=== PATIENT | male | born 1965 | race Caucasian/White ===

== ENCOUNTER → 2020-01-05 | Outpatient (CLI) | payer OTHER ==
[~2020-01-05] MED LIST: ASPI-630 PO; BYSTOLIC20 MG PO; CLON1PAT6 TD; CLONAZEPAM1 MG PO; COLC0.6T42 PO; DAPA10TA PO; EMPA25TA PO; EZET10TA20 PO; FEBU80TA2 PO; HYDR-2869 PO; HYDR12.575 PO; IOHEXOL 180 MG/ML 10 ML VIAL. ONE; LIPITOR80 MG PO; LISI-378 PO; SEMA1PEN SQ; SILD20TA4 PO; ZOLP10TA PO; methylPREDNISolone ACETATE 40 MG/ML VIAL. ONE; methylPREDNISolone ACETATE 80 MG/ML VIAL. ONE; tylenol #3
--- NOTE | 2020-01-05 13:04 | PDOC1 ---
INITIAL PAIN CONSULT DATE OF SERVICE: DOS: DATE: 01/05/20 TIME: 12:57 CHIEF COMPLAINT: Chief Complaint: Low back and right lower extremity pain HISTORY OF PRESENT ILLNESS: 54-year-old male presents history of pain in the low back and right lower extremity for about 1 to 2 years. Patient reports no specific injury or accident that he is aware of but has significant pain in the low back and right lower extremity. Patient had lumbar laminectomy in 2016 in [place] which did very well for several years after the procedure but now the pain is returning similar to that what it was previously. Patient reports the pain is in the low back right lower extremity posterior gluteus posterior thigh lateral thigh anterior thigh groin on the right side into the medial knee on the right as well. Patient reports no loss of motor function describes the pain is shooting intermittent intensity and severity changes during the day with walking standing changing positions as a radiating pain in the low back and right leg burning sensation in the back and leg as well. Patient which is worse with walking standing changing positions better with sitting or laying down but does awaken him sleep release once or twice a night does not affect his bowel bladder control but does affect his ability to walk although he is not using any assistive devices such as canes or walkers to ambulate. Patient has been taking Tylenol 3 which has not been very helpful also tizanidine which has not decreased the pain as well. Rates his disability rating 0-10 10 me the worst is a 7 with family home responsibilities social activity occupation 8 with recreation and sexual behavior 5 with self-care and 6 with life support activities. Did have an MRI scan lumbar spine dated December 02, 2019 showing L3-4 right neuroforaminal broad-based disc protrusion with mild to moderate right neuroforaminal stenosis compromising the anterior inferior margin of the exiting right L3 nerve root. Patient reports no loss of motor function but significant fatigability the right lower extremity specially with ambulation. PAST MEDICAL HISTORY: PMH: Diabetes, hypertension, peripheral vascular disease, arthritis PREVIOUS SURGERIES: Past Surgical Hx: Lumbar laminectomy 2016, left carotid endarterectomy, cyst removed from the brain x2 CURRENT MEDICATIONS: Current Meds: See patients chart ALLERGIES; Allergies: Coded Allergies: No Known Drug Allergies (Unverified , 01/05/20) FAMILY HISTORY: Family Hx: Diabetes, arthritis, hypertension SOCIAL HISTORY: Social Hx: Patient drinks alcohol 1 or 2 drinks a week does not smoke not use any illegal illicit recreational drugs is single lives locally in [facility] and 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 Extraocular movements are intact and symmetrical. Oral cavity: Mucous membranes moist and pink. Dentition is intact. NECK: Shows anterior throat supple without palpable lymphadenopathy noted. Swallow reflex symmetrical. CHEST: Shows normal on inspection. Breath sounds are clear bilaterally, no rales rhonchi or wheezes. HEART: Shows S1, S2 clear. No murmurs auscultated. ABDOMEN: Soft, nontender, nondistended, obese. No palpable organomegaly is noted. No rebound or guarding demonstrated. BACK: Shows spine grossly in the midline. Normal-appearing cervical lordotic curvature. There is slightly increased thoracic kyphosis, some minor flattening of the lumbar lordotic curvature. Well-healed midline surgical scar is noted. Lumbar paraspinous muscles show symmetrical on inspection, on palpation shows some moderate tenderness diffusely throughout the upper, middle and lower distribution of the paraspinous muscles bilaterally and also into the lower thoracic paraspinous musculature, firm and tender, but without specific trigger points, without radiation of pain. The patient has good rotational motion of the lumbar spine, both laterally as well as extension and flexion without significant difficulty. No tenderness over the spinous processes, sacrum or sacroiliac regions. EXTREMITIES: Lower extremities show deep tendon reflexes 2+ in the patellar and tendo calcaneus tendons. Motor exam is 4 on a scale of 5 with right dorsiflexion, extension, quadriceps and hamstring flexion and 5/5 on the left. Peripheral pulses are 1+ posterior tibial. No peripheral edema is noted bilaterally. Lower extremities are warm and dry to touch, equal in color and appearance. Straight leg raise noted to be positive on the right about 45 degrees, left side is negative. Gaenslen's and Shimon's maneuvers are negative as well. The patient is able to stand, stand on his toes without significant difficulty or loss of balance walks with a fairly normal-appearing gait does not appear to favor the right or left lower extremity significantly not use any assistive devices to ambulate. SKIN: Shows warm and dry, good turgor. No edema. No sores, rashes or bruising throughout. IMPRESSION: Impression: 54-year-old male with 1 to 2-year history of low back right lower extremity pain and radicular fashion Previous lumbar laminectomy Diabetes Hypertension Arthritis Plan: Options were discussed with the patient pleaded conservative medical management physical therapies interventional techniques. Patient would like to pursue interventional techniques. We discussed a lumbar epidural steroid injection using description as well as anatomical models to describe the procedure. Risks were discussed including but not limited to: Bleeding, infection, possibility of epidural hematoma and subsequent neurological compromise, dural puncture, headaches, spinal cord and/or nerve damage, side effects of steroid medication, and poor results regarding pain control. Patient understands wished to proceed. Patient will return to clinic in approximate 2 weeks for follow-up was counseled as to return appointment activity level and side effects to be aware of. Procedure is lumbar epidural steroid injection under local anesthetic using sterile prep and drape at the L3-4 level using C-arm fluoroscopic guidance in both AP and lateral views medications injected is 120 mg Depo-Medrol + 10 mL pre servative-free normal saline and 2 mL contrast- condition at discharge is stable patient tolerated procedure well had no complications. MICHELLE REYES MD Jan 05, 2020 13:04
== END ==
LOC: PNCL 08:09
PROVIDERS: ATTEND Anesthesiology
DX: M48.061 Spinal stenosis, lumbar region without neurogenic claudication (principal); M79.604 Pain in right leg; I10 Essential (primary) hypertension; E11.9 Type 2 diabetes mellitus without complications; M19.90 Unspecified osteoarthritis, unspecified site; I73.89 Other specified peripheral vascular diseases; Z79.82 Long term (current) use of aspirin; Z79.899 Other long term (current) drug therapy; Z79.84 Long term (current) use of oral hypoglycemic drugs; Z82.49 Family history of ischemic heart disease and other diseases of the circulatory system; Z83.3 Family history of diabetes mellitus
CPT/HCPCS: 62323; J1030; J1040; Q9965

== ENCOUNTER → 2020-02-10 | Outpatient (CLI) | payer OTHER ==
[~2020-02-10] MED LIST changes: -COLC0.6T42 PO; +COLC0.6T45 PO
--- NOTE | 2020-02-10 08:19 | PDOC ---
Progress Note - Pain Clinic Date of Service: DOS: DATE: 02/10/20 TIME: 08:16 Diagnosis: Dx: Lumbar radiculopathy with lumbar degenerative disc disease and lumbar postlaminectomy syndrome History or Present Illness: HPI: 54-year-old male returns follow-up status post lumbar epidural injection x1 last seen January 05, 2020. Patient reports he did fairly well after few days it was sore with about 50% improvement for about 2 weeks after that patient ports pain returning now in the low back and the right lower extremity posterior gluteus lateral thigh anterior thigh medial thigh and posterior thigh patient ports that sharp and shooting tingling burning stabbing radiating at times as well in the right lower extremity. Patient ports a 9 on scale 10 is worse over the past week 6 on average 3 at its least and is a 6 today. Patient reports initially was doing much better with walking changing positions doing household activities and traveling with greater ease and comfort now it is returning in the right lower extremity and low back occasionally wakes him from sleep at night but not most nights. Patient reports no new motor or sensory deficits no new bowel or bladder con's or other complaints. Physical Exam: VS: Blood pressure is 111/88 pulse 83 respirations 18 temperature 98.9 F height is 5 foot 10 inches weight is 235 pounds PE: PHYSICAL EXAMINATION: GENERAL: The patient is awake, alert, oriented, appropriate, very pleasant demeanor HEENT: Shows normocephalic, atraumatic. Extraocular movements are intact and symmetrical. Oral cavity: Mucous membranes moist and pink. NECK: Shows anterior throat supple without palpable lymphadenopathy noted. Swallow reflex symmetrical. CHEST: Shows normal on inspection. Breath sounds are clear bilaterally. HEART: Shows S1, S2 clear. No murmurs auscultated. ABDOMEN: Soft, nontender, nondistended, obese. No palpable organomegaly is noted. No rebound or guarding demonstrated. BACK: Shows spine grossly in the midline. Normal-appearing cervical lordotic curvature. There is slightly increased thoracic kyphosis, some minor flattening of the lumbar lordotic curvature. Lumbar paraspinous muscles show symmetrical on inspection, on palpation shows some moderate tenderness diffusely throughout the upper, middle and lower distribution of the paraspinous muscles, but without specific trigger points, without radiation of pain. The patient has good rotational motion of the lumbar spine, both laterally as well as extension and flexion without significant difficulty. No tenderness over the spinous processes, sacrum or sacroiliac regions. EXTREMITIES: Lower extremities show deep tendon reflexes 2+ in the patellar and tendo calcaneus tendons. Motor exam is 4 on a scale of 5 with right dorsiflexion, extension, quadriceps and hamstring flexion and 5/5 on the left. Peripheral pulses are 1+ posterior tibial. No peripheral edema is noted bilaterally. Lower extremities are warm and dry to touch, equal in color and appearance. SKIN: Shows warm and dry, good turgor. No edema. No sores, rashes or bruising throughout. Procedure: Procedure: Options discussed with the patient. Patient chart was reviewed his his current medication regimen updated current review of systems updated today as well. We will proceed with a lumbar epidural steroid injection as a second in the series today with fluoroscopic guidance. Risks were discussed including but not limited to: Bleeding, infection, possibility of epidural hematoma and subsequent neurological compromise, dural puncture, headaches, spinal cord and/or nerve damage, side effects of steroid medication, and poor results regarding pain control. Patient understands wished to proceed. Patient return to clinic in approximate 2 weeks for follow-up was counseled as return appointment activity level and side effects be aware of. Medication Injected: Med Injected: Procedure is lumbar epidural steroid injection under local anesthetic using sterile prep and drape at the L3-4 level using C-arm fluoroscopic guidance in both AP and lateral views medications injected is 120 mg Depo-Medrol + 10 mL preservative-free normal saline and 2 mL contrast- condition at discharge is stable patient tolerated procedure well had no complications. Condition at Discharge: Condition at Discharge: Condition at discharge is stable, patient tolerated procedure well and had no complications. MICHELLE REYES MD Feb 10, 2020 08:19
== END | disposition home or self-care (01) ==
LOC: PNCL 07:45
PROVIDERS: ATTEND Anesthesiology
DX: M51.16 Intervertebral disc disorders with radiculopathy, lumbar region (principal); M96.1 Postlaminectomy syndrome, not elsewhere classified; Z79.82 Long term (current) use of aspirin; Z79.899 Other long term (current) drug therapy
CPT/HCPCS: 62323; J1030; J1040; Q9965

== ENCOUNTER → 2021-01-02 | Outpatient (CLI) | payer OTHER ==
[~2021-01-02] MED LIST changes: +AMLO-187 PO; +BLOO-932 MC; +CLON0.2T PO; +DAPT350V IV; +DOCU-109 PO; +HYDR-2765 PO; +ICOS1CAP PO; -IOHEXOL 180 MG/ML 10 ML VIAL. ONE; +LACT1CAP19 PO; +METH-562 PO; +PROB500T23 PO; +V GO SQ; +ZOLP12.56 PO; -methylPREDNISolone ACETATE 40 MG/ML VIAL. ONE; -methylPREDNISolone ACETATE 80 MG/ML VIAL. ONE
[2021-01-02 13:37] LABS: BASO # 0.1 x10^3/uL (0.0-0.2); BASO % 1 % (0-3); EOS # 0.2 x10^3/uL (0.0-0.7); EOS % 2 % (0-3); HEMATOCRIT 55.2 % (39.0-53.0); HEMOGLOBIN 19.2 g/dL (13.0-17.5); LYMPH # 1.4 x10^3/uL (1.0-4.8); LYMPH % 21 % (24-48); MEAN CORPUSCULAR HEMOGLOBIN 30 pg (25-35); MEAN CORPUSCULAR HGB CONC 35 g/dL (31-37); MEAN CORPUSCULAR VOLUME 87 fL (79-100); MONO # 0.6 x10^3/uL (0.0-1.1); MONO % 8 % (0-9); NEUT # 4.4 x10^3/uL (1.8-7.7); NEUT % 67 % (31-73); PLATELET COUNT 175 x10^3/uL (140-400); RED BLOOD COUNT 6.38 x10^6/uL (4.30-5.70); RED CELL DISTRIBUTION WIDTH 14.7 % (11.5-14.5); WHITE BLOOD COUNT 6.6 x10^3/uL (4.0-11.0)
--- NOTE | 2021-01-02 13:46 | EKG ---
[facility] [address] [place] [address] Test Date: 2021-01-02 Test Time: 13:36:38 Pat Name: CORA CERRATO Department: Room: Gender: M [employer] Director: TATI : 1965 Requested By: DOUG ZAMAN Order Number: [id number] Reading MD: Rolando Sharma MD Measurements Intervals [place] Rate: 82 P: 18 MA: 154 QRS: 37 QRSD: 94 T: 21 QT: 370 QTc: 435 Interpretive Statements SINUS RHYTHM POOR R WAVE PROGRESSION, CONSIDER LEAD PLACEMENT NON-SPECIFIC ST/T CHANGES Electronically Signed On 01-03-2021 10:20:25 CDT by Rolando Sharma MD
[2021-01-02 13:57] LABS: ALBUMIN 4.5 g/dL (3.4-5.0); ALBUMIN/GLOBULIN RATIO 1.4 (1.0-1.7); CREATININE 1.6 mg/dL (0.7-1.3); GFR 45.1; TOTAL BILIRUBIN 0.5 mg/dL (0.2-1.0); TOTAL PROTEIN 7.7 g/dL (6.4-8.2)
[2021-01-03 01:12] LABS: HEMOGLOBIN A1C 10.4 % (4.8-5.6)
== END ==
LOC: SURGPAT 12:54
PROVIDERS: ATTEND Neurological Surgery
DX: Z01.818 Encounter for other preprocedural examination (principal); M51.16 Intervertebral disc disorders with radiculopathy, lumbar region
CPT/HCPCS: 36415; 80053; 83036; 85025; 87641; 93005

== ENCOUNTER 2021-01-09 10:08 | Observation (INO) | payer OTHER ==
[2021-01-02 13:49] VITALS: BP 158/99
[~2021-01-09] VITALS: Ht 177.8 cm; Wt 106.8 kg
[2021-01-09] VITALS (8 sets, daily range): BP systolic 115–150; BP diastolic 60–106
[~2021-01-09 10:08] MED LIST changes: -AMLO-187 PO; +BUPIVACAINE-EPI 0.5% 30 ML VIAL KIT. ONE; -CLON0.2T PO; -DAPT350V IV; +DEXAMETHASONE SOD PHOS 4 MG/ML VIAL ONE; -DOCU-109 PO; +GELATIN SPONGE SIZE 100. ONE; +GLYCOPYRROLATE 1 MG/5 ML VIAL. ONE; +IV RINGERS,LACTATED 1000ML 1,000 ML IV SCH; +KETOROLAC 60 MG/2 ML VIAL. ONE; -LACT1CAP19 PO; +LIDOCAINE 2% PF 5 ML VIAL. ONE; -METH-562 PO; +MIDAZOLAM HCL/PF 2 MG/2 ML VIAL. ONE; +NEOSTIGMINE METHYLSULFATE 5 MG/5 ML SYRINGE. ONE; +ONDANSETRON PF 4 MG/2 ML VIAL. ONE; +PHENYLEPHRINE 10 MG/ML VIAL. ONE; +PROCHLORPERAZINE 10 MG/2 ML VIAL. IVP PRN; +PROPOFOL 50 ML IV ONE; +REMIFENTANIL 1 MG VIAL. IV ONE; +ROCURONIUM 50 MG/5 ML VIAL. ONE; +THROMBIN TOPICAL 20,000 UNIT SPRAY.SYRN KIT TP ONE; +fentaNYL PF VIAL 100 MCG/2 ML VIAL IVP PRN; +fentaNYL PF VIAL 100 MCG/2 ML VIAL ONE
[2021-01-09] MEDS ORDERED: KETAMINE HCL IN NACL, ISO-OSM 50 MG/5 ML SYRINGE ONE (10:59)
[2021-01-09] MEDS ORDERED: ceFAZolin SODIUM 1 GM in IV NORMAL SALINE 1000ML BAG 1,000 ML IRR ONE (11:00)
[2021-01-09] MEDS ORDERED: PROPOFOL 50 ML IV ONE (11:19)
[2021-01-09] MEDS ORDERED: SEVOFLURANE > 120 MINUTES. IH ONE (11:57)
[2021-01-09] MEDS ORDERED: NEOSTIGMINE 10 MG/10 ML VIAL. ONE (12:01)
[2021-01-09] MEDS ORDERED: HYDROmorphone 2 MG/ML VIAL ONE ×2 (12:13→15:55)
[2021-01-09] MEDS ORDERED: METH-562 PO (14:49)
[2021-01-09] MEDS ORDERED: DOCU-109 PO (14:50)
--- NOTE | 2021-01-09 14:51 | DISCH ---
DISCHARGE INSTRUCTIONS Condition on Discharge Condition on Discharge: Stable Activity After Discharge Activity Instructions for Disc: Activity as tolerated, Avoid exertion Other activity instructions: no driving for a week Bathing Instructions: Shower-keep dressing dry, No Tub Bath until see Lifting Instructions after Dis: No heavy lifting, No pulling or pushing, Do not lift >10 pounds Diet after Discharge Additional Diet Restrictions: resume home diet Wound Incision Care Wound/Incision Care: Ice to area for comfort Other wound/incision instructi: may remove dressing in 48 hours if dry then may shower, no soaking Contacting the after DC Call your doctor for: Concerns you may have Follow-Up Follow up with: Dr. Zaman's nurse in 2 weeks [phone] DOUG ZAMAN MD Jan 09, 2021 14:51
[2021-01-09] MEDS ORDERED: PROCHLORPERAZINE 10 MG/2 ML VIAL. ONE (14:53)
--- NOTE | 2021-01-09 14:56 | PREOP HP ---
DATE OF SERVICE: 01/09/2021 PREOPERATIVE HISTORY AND PHYSICAL HISTORY OF PRESENT ILLNESS: The patient is a pleasant 55-year-old who I saw approximately a year ago for similar problems and referred him for epidural steroid injections. He continues to have problems with low back pain that radiates to his right buttock and right posterior lateral thigh and leg. He said over the last couple of months, the right-sided back pain has increased markedly. His pain is 7/10, usually. The pain is constant. His pain overall is increased with walking, bending and standing. Lying flat helps him. He is taking hydrocodone. He tried Lyrica, but that did not help him. He has had epidural steroid injections for his problem which he said helped him somewhat. CURRENT MEDICATIONS: Hydralazine, insulin, hydrocodone, Ambien, hydrochlorothiazide, aspirin, lisinopril, Jardiance, atorvastatin, clonidine, Ozempic, Bystolic. PAST SURGICAL HISTORY: Craniotomy with removal of cyst in 2008, lumbar surgery in 2017. FAMILY HISTORY: Diabetes, hypertension. 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 . Drinks alcohol 1-2 times per month. ALLERGIES: No known drug allergies. REVIEW OF SYSTEMS: A 12-point review of systems was performed and is noncontributory except that mentioned above. PHYSICAL EXAMINATION: GENERAL: Alert, pleasant, in no acute distress. HEENT: Head is normocephalic, atraumatic. SKIN: Warm and dry. Well-healed lumbar incision. MUSCULOSKELETAL: Lumbar paraspinal muscle bulk is normal, restricted range of motion of the lumbar spine, [id number] tenderness of the lower lumbar spine with palpation, normal range of motion of the lower extremities bilaterally. EXTREMITIES: No clubbing, cyanosis or edema. NEUROLOGIC: Alert and oriented x 3. Strength is 5/5 in the lower extremities bilaterally. Sensory was intact to light touch in the lower extremities bilaterally, reflexes were present and symmetric in the lower extremities bilaterally, positive straight leg raising on the right. Positive crossed straight leg raising on the left. Both were relieved by Lasegue's maneuver. Normal gait. IMAGING: I reviewed a lumbar MRI scan. There are postoperative changes at L5-S1 on the right, which are unchanged. At L3-L4 on the right hand, significant disc bulging before and now has a large herniated disc at this location. ASSESSMENT AND PLAN: The patient is experiencing extremely severe pain, which I believe is related to the large herniated disc at L3-L4 on the right. I recommended lumbar microsurgery. He had epidural steroid injections for this problem with time. I outlined the risk and benefits of surgery. I explained the outpatient nature of the surgery and its expected postoperative course. He understands. He would like to go ahead. DAWIT DR: Vicki TID: [id number] DIVINA
[2021-01-09] MEDS: LISINOPRIL 20 MG TABLET PO SCH (15:00)
[2021-01-09] MEDS ORDERED: fentaNYL PF VIAL 100 MCG/2 ML VIAL ONE (15:02)
[2021-01-09] MEDS: fentaNYL PF VIAL 100 MCG/2 ML VIAL IVP PRN ×3 (15:05→19:28)
[2021-01-09] MEDS: INSULIN LISPRO 100 UNIT/ML 3ML VIAL for OP,RR ONLY. SQ PRN ×2 (15:06→16:25)
[2021-01-09] MEDS ORDERED: diphenhydrAMINE HCL 25 MG CAPSULE PO PRN (15:15)
[2021-01-09] MEDS ORDERED: HYDROcodone/APAP 7.5/325MG 1 TAB TABLET PO PRN (15:15)
[2021-01-09] MEDS ORDERED: CALCIUM CARBONATE 500 MG TAB.CHEW PO PRN (15:15)
[2021-01-09] MEDS ORDERED: NALOXONE 0.4 MG/ML VIAL. IV PRN (15:15)
[2021-01-09] MEDS ORDERED: 0.9 % SODIUM CHLORIDE 10 ML DISP.SYRIN. IV PRN (15:15)
[2021-01-09] MEDS: POTASSIUM CL 20MEQ D5-0.45NACL 1,000 ML IV SCH (15:15)
[2021-01-09] MEDS ORDERED: MAGNESIUM HYDROXIDE 2,400 MG/30 ML ORAL.SUSP. PO PRN (15:15)
[2021-01-09] MEDS ORDERED: ACETAMINOPHEN 325 MG TABLET. PO PRN (15:15)
[2021-01-09] MEDS ORDERED: MAG HYDROX/ALUMINUM HYD/SIMETH 30 ML ORAL.SUSP PO PRN (15:15)
[2021-01-09] MEDS ORDERED: MORPHINE SULFATE 2 MG/ML INJ. ONE (15:16)
[2021-01-09] MEDS: MORPHINE SULFATE 2 MG/ML INJ. IVP PRN ×2 (15:21→15:30)
[2021-01-09] MEDS: HYDROmorphone 2 MG/ML VIAL IVP PRN ×4 (16:02→16:40)
--- NOTE | 2021-01-09 16:05 | OP ---
DATE OF SURGERY: 01/09/2021 PREOPERATIVE DIAGNOSIS: Herniated lumbar L3-L4 with large superior fragment. POSTOPERATIVE DIAGNOSIS: Herniated lumbar disc, L3-L4 with large superior fragment. OPERATION PERFORMED: Hemilaminotomy and microdiscectomy, L3-L4, right. The operation was done with EMG monitoring, SSEP monitoring, fluoroscopy, microscopic dissection. SPECIMEN: Disc and decompression. SURGEON: Yaron Almonte M.D. IT DATA ARCHITECT: ROBERT Barr, assisted with the surgery. She assisted with exposure, the microdiscectomy and microdecompression as well as the closure. OPERATIVE INDICATIONS: The patient is a pleasant 55-year-old man who developed intractable back and right leg pain. He underwent epidural steroid injections and the leg pain has slowly decreased in severity. He developed continued right sided lower back pain which could radiate down into the buttock and lateral hip region. The pain did not resolve and the disc was very large with the large superior fragment, I recommended lumbar microdecompression. I spoke to him about the surgery and the risks. He understood and he wished to go ahead. DESCRIPTION OF PROCEDURE: Following general endotracheal anesthesia, the patient was positioned prone on the Brendan table. Lumbar region prepped and draped in standard fashion. VEDA hose and AV impulse boots were applied for DVT prophylaxis. The microscope was draped, fluoroscopy was draped and brought into the field.. Monitoring was established. Ancef 2 grams given less than one hour prior to initiation of surgery. Using fluoroscopic guidance, I made an incision directly over the L3-L4 interspace. I dissected down through skin and subcutaneous tissue, dissected down to the lumbodorsal fascia, which I incised the right side of midline. I dissected down and reflected the paraspinal muscles and placed [place] microdisk retractor, brought in the microscope and the remainder of the surgery was done with microscope using microscopic technique, I burred down a generous hemilaminotomy. I trimmed away very thickened ligamentum flavum. I went above this region to expose the origin of the L3 root and then I did perform foraminotomy. After peeling away the very thickened ligamentum flavum, I could see the dura very well and the L3 root around at the pedicle and moved laterally. There was a large superiorly herniated disc fragment, which I began to remove in multiple pieces as I worked, I was able to get an excellent decompression. I went to the level of disc space and continued to remove disc material and as I worked, the area was very well decompressed. I irrigated copiously with antibiotic solution. I had excellent hemostasis throughout. I removed the retractors and obtained hemostasis in the muscle and irrigated copiously and then I closed the wound in layers with absorbable suture. The skin was closed with 4-0 subcuticular stitch. I felt the surgery went very well. CLEM/JELLY DR: Cari TID: [id number] MTDGayla
[2021-01-09] MEDS ORDERED: INSULIN LISPRO 100 UNIT/ML 3ML VIAL for OP,RR ONLY. SQ ONE ×2 (16:30)
--- NOTE | 2021-01-09 16:50 | NUR ---
Arrived to unit by cart from PACU. Alert and oriented x's 4. Able to ambulated from cart to bed with assist x's 1. Dressing intact with some drainage noted. Saline lock on left handl. VEDA's on bilaterally. Able to move all extremities easily. Still has sl pain on right leg but better than before surgery. Got in bed and soon after was uncomfortable. Pt up in chair with ice pack to incision site. Stated felt more comfortable. Call light in reach. Cont. monitor.
[2021-01-09] MEDS: HYDROcodone/APAP 7.5/325MG 1 TAB TABLET PO PRN ×2 (17:54→23:51)
[2021-01-09] MEDS ORDERED: NON FORMULARY ITEM (Icosapent Ethyl (Vascepa) 1 GM) PO SCH (21:00)
[2021-01-09] MEDS ORDERED: ATORVASTATIN CALCIUM 40 MG TABLET. PO SCH (21:00)
[2021-01-09] MEDS: METOPROLOL TART IMMED RELEASE 50 MG TABLET. PO SCH (21:00)
[2021-01-09] MEDS: METHOCARBAMOL 750 MG TABLET PO PRN (22:11)
[2021-01-09] MEDS: DOCUSATE SODIUM 100 MG CAPSULE. PO SCH (22:12)
[2021-01-09] MEDS: ZOLPIDEM 5 MG TABLET. PO PRN ×2 (22:12→23:51)
[2021-01-09] MEDS: PROBENECID 500 MG TABLET PO SCH (22:12)
[2021-01-10 03:00] VITALS: BP 107/56
[2021-01-10] MEDS: fentaNYL PF VIAL 100 MCG/2 ML VIAL IVP PRN ×3 (03:07→11:24)
[2021-01-10] MEDS: POTASSIUM CL 20MEQ D5-0.45NACL 1,000 ML IV SCH (04:35)
[2021-01-10 06:23] VITALS: BP 99/57
[2021-01-10] MEDS: HYDROcodone/APAP 7.5/325MG 1 TAB TABLET PO PRN ×2 (06:36→11:53)
[2021-01-10] MEDS ORDERED: hydroCHLOROthiazide 12.5 MG CAPSULE PO SCH (09:00)
[2021-01-10] MEDS ORDERED: FEBUXOSTAT 40 MG TABLET PO SCH (09:00)
[2021-01-10] MEDS ORDERED: BLOOD SUGAR DIAGNOSTIC MC SCH (09:00)
[2021-01-10] MEDS ORDERED: ASPIRIN CHEWABLE 81 MG TABLET. PO SCH (09:00)
[2021-01-10] MEDS ORDERED: EZETIMIBE 10 MG TABLET. PO SCH (09:00)
[2021-01-10] MEDS: METOPROLOL TART IMMED RELEASE 50 MG TABLET. PO SCH (09:00)
[2021-01-10] MEDS: DOCUSATE SODIUM 100 MG CAPSULE. PO SCH (09:00)
[2021-01-10] MEDS: LISINOPRIL 20 MG TABLET PO SCH (09:00)
[2021-01-10] MEDS ORDERED: NON FORMULARY ITEM (Empagliflozin (Jardiance) 25 MG) PO SCH (09:00)
--- NOTE | 2021-01-10 09:00 | NUR ---
resting in bed. original dressing removed cleansed with chlor prep then telfa island applied. up to recliner medicated with fentanyl for complaints of pain. hospital pharmacy does not carry his diabetic medication; called for a sliding scale. ate large breakfast Addendum: 01/10/21 at 1135 by ZELDA BELTRAN RN he was given sliding scale of 5 units.
[2021-01-10] MEDS: PROBENECID 500 MG TABLET PO SCH (09:01)
[2021-01-10] MEDS: METHOCARBAMOL 750 MG TABLET PO PRN (09:01)
[2021-01-10] MEDS ORDERED: DEXTROSE 50% 25 GM / 50ML DISP.SYRIN. IV PRN (09:30)
--- NOTE | 2021-01-10 10:37 | DS ---
DATE OF DISCHARGE: 01/10/2021 DISCHARGE DIAGNOSIS: Herniated lumbar disc, L3-L4 with large superior fragment. OPERATIONS PERFORMED: Hemilaminotomy and microdiscectomy L3-L4, right. HISTORY OF PRESENT ILLNESS: The patient is a pleasant 55-year-old man who developed intractable back and right leg pain. He underwent epidural steroid injections and the leg pain slowly decreased in severity. He continued to have right-sided lower back pain, which would radiate to the buttock and lateral hip region. The pain did not resolve and the disc was very large with the large superior fragment and I recommended lumbar microdecompressive surgery. I spoke with him about the surgery and the risks. He understood and wished to go ahead. HOSPITAL COURSE: He was admitted to the floor postoperatively where he has done well. He is up ambulating in the room and in the halls with physical therapy. Instruction was given to him regarding his activities. His pain is well controlled with his medications and he is in good condition to discharge home. DISCHARGE MEDICATIONS: He will resume his medications per the MRAD. DISCHARGE INSTRUCTIONS: He was instructed regarding incision care, activity restrictions and expectations for the next several weeks. He will follow up in our office in 2 weeks. He understands to call with questions or concerns. NALLELY DR: Vicki TID: [id number]
[2021-01-10 11:04] VITALS: BP 115/53
[2021-01-10] MEDS ORDERED: INSULIN REGULAR 100 UNIT/ML 3ML VIAL. IV STA (11:44)
--- NOTE | 2021-01-10 11:59 | NUR ---
given another 5 units of insulin for his blood sugar. saline lock removed. maldonado here reviewed written discgharge instructions; verbalized understanding of thesehe is rating his pain "8" mediated with lortab Addendum: 01/10/21 at 1202 by ZELDA BELTRAN RN millicent given fentanyl 50 mcg 20 min prior to dismissal. wants to go home
[2021-01-10] MEDS ORDERED: INSULIN LISPRO 300 UNITS/3 ML VIAL. SQ ONE (12:00)
[2021-01-10] MEDS ORDERED: INSULIN LISPRO 300 UNITS/3 ML VIAL. SQ SCH (12:00)
[2021-01-15] MEDS ORDERED: cloNIDine TTS-2 1 PATCH PATCH TD SCH (09:00)
[2021-01-16] MEDS ORDERED: NON FORMULARY ITEM (Semaglutide (Ozempic) 1 MG) SQ SCH (09:00)
== END 2021-01-10 12:05 | disposition home or self-care (01) ==
LOC: SURG 10:08 → 4 SOUTHEST 15:14
PROVIDERS: ADMIT Neurological Surgery; ATTEND Neurological Surgery
DX: M51.16 Intervertebral disc disorders with radiculopathy, lumbar region (principal); Z79.899 Other long term (current) drug therapy; Z98.890 Other specified postprocedural states; Z79.82 Long term (current) use of aspirin
CPT/HCPCS: 63030; 63035; 82962; 96372; 96374; 96376; 97116; 97162; 97530; A4364; A4930; A6254; A6258; G0378; G0379; J0690; J0780; J1100; J1170; J1815; J1885; J2250; J2270; J2370; J2405; J2704; J2710; J3010; J3480; J3490; J7030; 76000; 88304; 88311; A4222

== ENCOUNTER 2021-01-22 15:34 | Inpatient (IN) | payer OTHER ==
[~2021-01-22] VITALS: Ht 177.8 cm; Wt 106.0 kg
[2021-01-22] MEDS: INSULIN LISPRO 300 UNITS/3 ML VIAL. SQ SCH ×4 (08:00→17:00)
[~2021-01-22 15:34] MED LIST changes: -BUPIVACAINE-EPI 0.5% 30 ML VIAL KIT. ONE; -DEXAMETHASONE SOD PHOS 4 MG/ML VIAL ONE; +DOCU-109 PO; -GELATIN SPONGE SIZE 100. ONE; -GLYCOPYRROLATE 1 MG/5 ML VIAL. ONE; -IV RINGERS,LACTATED 1000ML 1,000 ML IV SCH; -KETOROLAC 60 MG/2 ML VIAL. ONE; -LIDOCAINE 2% PF 5 ML VIAL. ONE; +METH-562 PO; -MIDAZOLAM HCL/PF 2 MG/2 ML VIAL. ONE; -NEOSTIGMINE METHYLSULFATE 5 MG/5 ML SYRINGE. ONE; -ONDANSETRON PF 4 MG/2 ML VIAL. ONE; -PHENYLEPHRINE 10 MG/ML VIAL. ONE; -PROCHLORPERAZINE 10 MG/2 ML VIAL. IVP PRN; -PROPOFOL 50 ML IV ONE; -REMIFENTANIL 1 MG VIAL. IV ONE; -ROCURONIUM 50 MG/5 ML VIAL. ONE; -THROMBIN TOPICAL 20,000 UNIT SPRAY.SYRN KIT TP ONE; -fentaNYL PF VIAL 100 MCG/2 ML VIAL IVP PRN; -fentaNYL PF VIAL 100 MCG/2 ML VIAL ONE
[2021-01-22 15:45] VITALS: BP 160/112
[2021-01-22] MEDS ORDERED: ZOLPIDEM 5 MG TABLET. PO PRN (16:15)
[2021-01-22] MEDS: HYDROcodone/APAP 7.5/325MG 1 TAB TABLET PO PRN ×2 (16:22→21:36)
[2021-01-22] MEDS: cloNIDine TTS-2 1 PATCH PATCH TD SCH (16:26)
--- NOTE | 2021-01-22 16:43 | RAD ---
EXAM: CT lumbar spine without contrast. HISTORY: Postoperative, infection. TECHNIQUE: CT of the lumbar spine was performed without intravenous contrast. One or more of the foll owing individualized dose reduction techniques were utilized for this examination: 1. Automated exposure control. 2. Adjustment of the mA and/or kV according to patient size. 3. Use of iterative reconstruction technique. COMPARISON: None. FINDINGS: There is some contrast within the renal collecting systems from a prior administration. Sup erimposed small renal calculi measure up to 3 mm bilaterally. There is a mild lumbar levocurvature. No fractures are identified. Intervertebral disc heights are ma intained. There is mild endplate remodeling from L3 through S1. At L1-2, there is a minimal posterior disc bulge. There is no stenosis. At L2-3, there is a minimal posterior disc bulge. There is mild facet and ligamentum flavum hypertrop hy. There is mild right neural foraminal narrowing. At L3-4, there are changes of right hemilaminotomy with resection of the right inferior articular pro cess. There is effacement of the extradural fat posteriorly and laterally on the right, without a timothy ar space-occupying collection, though sensitivity by CT is limited. There is no clear fluid collectio n within the operative bed. There appears to be residual moderate right lateral recess stenosis versu s swelling. There is a small posterior disc bulge. At L4-5, there is a moderate posterior disc bulge. Facet and ligamentum flavum hypertrophy is mild. C entral canal stenosis is mild. Neural foraminal stenosis is mild on the left. At L5-S1, there is a small posterior disc bulge likely with a small superimposed central protrusion. Neural foraminal stenosis is mild to moderate on the right. IMPRESSION: 1. L3-4 right hemilaminotomy with resection of the right inferior articular process. There is soft ti ssue density effacement of the epidural fat laterally and posteriorly on the right which may reflect edema. There appears to be moderate residual right lateral recess stenosis. MRI with and without cont rast could exclude a fluid collection if there is persistent concern. 2. Central canal stenosis is mild at L4-5. Neural foraminal stenosis is mild to moderate on the right at L5-S1 and mild elsewhere as above. Electronically signed by: Ashlyn Sapp MD (01/22/2021 4:40 PM) [facility]
[2021-01-22] MEDS: fentaNYL PF VIAL 100 MCG/2 ML VIAL IVP PRN ×4 (17:36→23:45)
--- NOTE | 2021-01-22 18:11 | NUR ---
Patient arrived around 1545 from home. Dressing over his recent surgical incision present to his lower back with a scant amount of shadowing present. Pain at a "16" per patient. He came with his walker which he states he has been having to use lately to get around due to the pain in his back and the pain that shoots down both of his legs. OLMAN Alvarez notified of patients arrival to the unit and orders were placed per Dr Middleton instructions. Patient is now in bed eating and resting at this time with recent IV pain medication given. Home medications started and patient was notified that we do not carry some of his medications. He has a jennifer blood sugar meter on his left arm and an insulin pump to the left side of his belly. Blood Sugar 237 upon admission per patients jennifer. Will continue to monitor.
[2021-01-22 19:00] VITALS: BP 131/76
[2021-01-22 19:21] LABS: BASO # 0.1 x10^3/uL (0.0-0.2); BASO % 0 % (0-3); EOS # 0.1 x10^3/uL (0.0-0.7); EOS % 1 % (0-3); HEMATOCRIT 47.6 % (39.0-53.0); HEMOGLOBIN 16.1 g/dL (13.0-17.5); LYMPH # 1.2 x10^3/uL (1.0-4.8); LYMPH % 7 % (24-48); MEAN CORPUSCULAR HEMOGLOBIN 29 pg (25-35); MEAN CORPUSCULAR HGB CONC 34 g/dL (31-37); MEAN CORPUSCULAR VOLUME 86 fL (79-100); MONO # 1.2 x10^3/uL (0.0-1.1); MONO % 7 % (0-9); NEUT # 14.8 x10^3/uL (1.8-7.7); NEUT % 86 % (31-73); PLATELET COUNT 179 x10^3/uL (140-400); RED BLOOD COUNT 5.52 x10^6/uL (4.30-5.70); RED CELL DISTRIBUTION WIDTH 14.6 % (11.5-14.5); WHITE BLOOD COUNT 17.3 x10^3/uL (4.0-11.0)
[2021-01-22 19:28] LABS: ALBUMIN 3.6 g/dL (3.4-5.0); ALBUMIN/GLOBULIN RATIO 1.2 (1.0-1.7); CALCIUM 8.2 mg/dL (8.5-10.1); CREATININE 1.7 mg/dL (0.7-1.3); GFR 42.1; TOTAL BILIRUBIN 0.7 mg/dL (0.2-1.0); TOTAL PROTEIN 6.7 g/dL (6.4-8.2)
[2021-01-22] MEDS: NON FORMULARY ITEM (Icosapent Ethyl (Vascepa) 1 GM) PO SCH (19:40)
[2021-01-22] MEDS: METHOCARBAMOL 750 MG TABLET PO PRN (19:41)
[2021-01-22] MEDS: DOCUSATE SODIUM 100 MG CAPSULE. PO SCH (19:41)
[2021-01-22] MEDS: METOPROLOL TART IMMED RELEASE 50 MG TABLET. PO SCH (19:48)
[2021-01-22] MEDS: PROBENECID 500 MG TABLET PO SCH (19:48)
[2021-01-22 19:53] LABS: PLT ESTIMATE ADEQUATE (ADEQUATE)
[2021-01-22 19:54] LABS: PLATELET CLUMP PRESENT
[2021-01-22] MEDS ORDERED: DEXTROSE 50% 25 GM / 50ML DISP.SYRIN. IV PRN (20:45)
[2021-01-22 23:00] VITALS: BP 141/100
[2021-01-23] VITALS (7 sets, daily range): BP systolic 148–189; BP diastolic 83–118
[2021-01-23] MEDS: fentaNYL PF VIAL 100 MCG/2 ML VIAL IVP PRN (02:11)
[2021-01-23] MEDS: HYDROcodone/APAP 7.5/325MG 1 TAB TABLET PO PRN ×2 (02:15→10:25)
[2021-01-23] MEDS ORDERED: diphenhydrAMINE 50 MG/ML VIAL IVP PRN (03:00)
[2021-01-23] MEDS: diphenhydrAMINE 50 MG/ML VIAL IVP PRN ×3 (03:06→18:42)
[2021-01-23] MEDS: MORPHINE SULFATE 2 MG/ML INJ. IVP PRN ×4 (05:01→20:51)
[2021-01-23] MEDS: methylPREDNISolone SOD SUCC PF 40 MG/ML VIAL. IV SCH ×2 (06:42→20:56)
[2021-01-23] MEDS: FAMOTIDINE 20 MG/2 ML VIAL IVP SCH ×2 (06:42→20:56)
[2021-01-23] MEDS: EZETIMIBE 10 MG TABLET. PO SCH (07:46)
[2021-01-23] MEDS: ASPIRIN CHEWABLE 81 MG TABLET. PO SCH (07:46)
[2021-01-23] MEDS: DOCUSATE SODIUM 100 MG CAPSULE. PO SCH ×2 (07:46→21:00)
[2021-01-23] MEDS: hydroCHLOROthiazide 12.5 MG CAPSULE PO SCH (07:47)
[2021-01-23] MEDS: ATORVASTATIN CALCIUM 40 MG TABLET. PO SCH (07:47)
[2021-01-23] MEDS: METOPROLOL TART IMMED RELEASE 50 MG TABLET. PO SCH ×2 (07:47→21:01)
[2021-01-23] MEDS: INSULIN LISPRO 300 UNITS/3 ML VIAL. SQ SCH ×3 (07:56→18:10)
--- NOTE | 2021-01-23 08:29 | PDOC ---
Infectious Disease Note Vital Sign Vital Signs Vital Signs Date Time Temp Pulse Resp B/P (MAP) Pulse Ox O2 Delivery O2 Flow Rate FiO2 01/23/21 07:48 90 152/83 01/23/21 07:00 97.9 18 96 Room Air 97.9 Labs Lab Laboratory Tests Test 01/22/21 18:35 White Blood Count 17.3 x10^3/uL (4.0-11.0) Red Blood Count 5.52 x10^6/uL (4.30-5.70) Hemoglobin 16.1 g/dL (13.0-17.5) Hematocrit 47.6 % (39.0-53.0) Mean Corpuscular Volume 86 fL (79-100) Mean Corpuscular Hemoglobin 29 pg (25-35) Mean Corpuscular Hemoglobin Concent 34 g/dL (31-37) Red Cell Distribution Width 14.6 % (11.5-14.5) Platelet Count 179 x10^3/uL (140-400) Neutrophils (%) (Auto) 86 % (31-73) Lymphocytes (%) (Auto) 7 % (24-48) Monocytes (%) (Auto) 7 % (0-9) Eosinophils (%) (Auto) 1 % (0-3) Basophils (%) (Auto) 0 % (0-3) Neutrophils # (Auto) 14.8 x10^3/uL (1.8-7.7) Lymphocytes # (Auto) 1.2 x10^3/uL (1.0-4.8) Monocytes # (Auto) 1.2 x10^3/uL (0.0-1.1) Eosinophils # (Auto) 0.1 x10^3/uL (0.0-0.7) Basophils # (Auto) 0.1 x10^3/uL (0.0-0.2) Platelet Estimate Adequate (ADEQUATE) Platelet Clumps, EDTA Present Sodium Level 135 mmol/L (136-145) Potassium Level 4.0 mmol/L (3.5-5.1) Chloride Level 100 mmol/L (98-107) Carbon Dioxide Level 25 mmol/L (21-32) Anion Gap 10 (6-14) Blood Urea Nitrogen 24 mg/dL (8-26) Creatinine 1.7 mg/dL (0.7-1.3) Estimated GFR (Cockcroft-Gault) 42.1 BUN/Creatinine Ratio 14 (6-20) Glucose Level 264 mg/dL (70-99) Calcium Level 8.2 mg/dL (8.5-10.1) Total Bilirubin 0.7 mg/dL (0.2-1.0) Aspartate Amino Transf (AST/SGOT) 11 U/L (15-37) Alanine Aminotransferase (ALT/SGPT) 17 U/L (16-63) Alkaline Phosphatase 81 U/L (46-116) Total Protein 6.7 g/dL (6.4-8.2) Albumin 3.6 g/dL (3.4-5.0) Albumin/Globulin Ratio 1.2 (1.0-1.7) Objective Assessment pt seen, consult dictated Plan Plan of Care / BONNIE SARMIENTO MD Jan 23, 2021 08:29
[2021-01-23] MEDS ORDERED: NON FORMULARY ITEM (Empagliflozin (Jardiance) 25 MG) PO SCH (09:00)
[2021-01-23] MEDS ORDERED: LISINOPRIL 20 MG TABLET PO SCH (09:00)
[2021-01-23] MEDS: NON FORMULARY ITEM (Icosapent Ethyl (Vascepa) 1 GM) PO SCH (09:00)
--- NOTE | 2021-01-23 09:00 | NUR ---
Instructed pt to bring Jardince and Vascepa medications from home. Not available in house.
--- NOTE | 2021-01-23 09:25 | HP ---
DATE OF SERVICE: 01/23/2021 ADMIT DATE: 01/22/2021 HISTORY OF PRESENT ILLNESS: The patient is a pleasant 55-year-old who underwent lumbar surgery which included a microdiskectomy at L3-L4 on the right on 01/09/2021. He was discharged home the following day, doing well. He was seen in our office last week with incisional pain and erythema of the incision. There was no drainage noted at that time. He was started on Keflex. He was then seen in our office again on 01/22 and had worsened over the weekend. His pain was severe and there was some serous drainage from the incision. He reports that his blood sugars have not been well controlled. He lives alone and is having difficulty. He was admitted for further evaluation and treatment. PAST MEDICAL HISTORY: Diabetes and hypertension. PAST SURGICAL HISTORY: Craniotomy in 2009 and lumbar surgery in 2017 as well as 01/09/2021 as mentioned above. FAMILY HISTORY: Diabetes and hypertension. 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 . Drinks alcohol 1-2 times per month. ALLERGIES: No known drug allergies. CURRENT MEDICATIONS: See the MRAD. PHYSICAL EXAMINATION: GENERAL: Alert and pleasant, in distress due to lumbar incisional pain. HEENT: Head is normocephalic and atraumatic. SKIN: Warm and dry. Lumbar incision with erythema and minimal drainage at this time, which is serosanguineous. MUSCULOSKELETAL: Restricted range of motion of the lumbar spine, [id number] tenderness with palpation of the lower lumbar spine, normal range of motion of the lower extremities bilaterally. EXTREMITIES: No clubbing, cyanosis or edema. NEUROLOGIC: Alert and oriented x 3. Strength is 5/5 in the lower extremities. Sensory was intact to light touch in the lower extremities. Reflexes were symmetric and present in the lower extremities. He ambulated with a walker. ASSESSMENT AND PLAN: The patient is experiencing severe pain and has a postoperative infection. He is being admitted for further evaluation and treatment. We will obtain imaging of the lumbar spine and laboratory studies. We will consult Infectious Disease and the hospitalist to assist with medical management. MARQUIS/NÉSTOR DR: Vicki TID: [id number]
[2021-01-23] MEDS ORDERED: DAPTOmycin (GENERIC) IVPB 640 MG in IV NORMAL SALINE 50ML 50 ML IV SCH (10:00)
[2021-01-23] MEDS: PIPERACILLIN/TAZOBACTAM 3.375 GM in IV NORMAL SALINE 50ML 50 ML IV SCH ×3 (10:21→23:35)
[2021-01-23] MEDS: PROBENECID 500 MG TABLET PO SCH ×2 (10:21→21:00)
[2021-01-23] MEDS: FEBUXOSTAT 40 MG TABLET PO SCH (10:22)
--- NOTE | 2021-01-23 12:47 | PDOC2 ---
CONSULT - DR. BUCHANAN CHIEF COMPLAINT Chief Complaint Postoperative infection and MICHAEL induced angioedema HPI HPI Patient is a very pleasant 55-year-old male who underwent lumbar hemilaminectomy of the L3-L4 levels on January 09, 2021. He was actually discharged home the following day was doing well. Unfortunately patient had a surgical site complication with infection he was started on Keflex and failed p.o. antibiotics over the weekend. There was increasing pain and serous drainage from incision and he was brought in for further evaluation and IV antibiotics. He was given fentanyl for pain and patient was on lisinopril chronically. Unfortunately patient had angioedema most likely with his use of MICHAEL inhibitors. Infectious diseases consulted for antibiotic management. Patient interviewed bedside and he was doing well. He denies any throat swelling or wheezing or trouble breathing. He does not have any periorbital edema or facial swelling. Only upper portion of his lip is swollen and his tongue is fine. He is speaking in full sentences without any use of his accessory muscles. Denies fevers, confusion, syncope, chest pain, shortness of breath, abdominal pain, diarrhea or hematuria. PMH PMH PAST MEDICAL HISTORY: Diabetes and hypertension. PAST SURGICAL HISTORY: Craniotomy in 2009 and lumbar surgery in 2017 as well as 01/09/2021 as mentioned above. ROS ROS GEN: Upper lip swelling HEENT: No blurred vision or sore throat CV: Denies chest pain RESP: No shortness of breath or cough GI: As per HPI : No dysuria or hematuria M/S: No myalgias NEURO: No headache PSYCH: No depression Francisco Vital Signs Date Time Temp Pulse Resp B/P (MAP) Pulse Ox O2 Delivery O2 Flow Rate FiO2 01/23/21 11:46 Room Air 01/23/21 11:00 97.9 96 18 148/87 (107) 95 97.9 Physical Exam GEN: Upper lip swelling with minimal erythema. No tongue swelling HEENT: OP clear CV: S1S2 without murmurs, rubs, or gallops RESP: CTAB without wheezing, rhonchi, or crackles ABD: NABS, SNT/ND EXT: No edema NEURO: AAO x 3 SKIN: There is some erythema around the lumbar incision with erythema and minimal drainage which is serosanguineous LABS Labs Laboratory Tests Test 01/22/21 18:35 01/23/21 11:15 White Blood Count 17.3 x10^3/uL (4.0-11.0) Red Blood Count 5.52 x10^6/uL (4.30-5.70) Hemoglobin 16.1 g/dL (13.0-17.5) Hematocrit 47.6 % (39.0-53.0) Mean Corpuscular Volume 86 fL (79-100) Mean Corpuscular Hemoglobin 29 pg (25-35) Mean Corpuscular Hemoglobin Concent 34 g/dL (31-37) Red Cell Distribution Width 14.6 % (11.5-14.5) Platelet Count 179 x10^3/uL (140-400) Neutrophils (%) (Auto) 86 % (31-73) Lymphocytes (%) (Auto) 7 % (24-48) Monocytes (%) (Auto) 7 % (0-9) Eosinophils (%) (Auto) 1 % (0-3) Basophils (%) (Auto) 0 % (0-3) Neutrophils # (Auto) 14.8 x10^3/uL (1.8-7.7) Lymphocytes # (Auto) 1.2 x10^3/uL (1.0-4.8) Monocytes # (Auto) 1.2 x10^3/uL (0.0-1.1) Eosinophils # (Auto) 0.1 x10^3/uL (0.0-0.7) Basophils # (Auto) 0.1 x10^3/uL (0.0-0.2) Platelet Estimate Adequate (ADEQUATE) Platelet Clumps, EDTA Present Sodium Level 135 mmol/L (136-145) Potassium Level 4.0 mmol/L (3.5-5.1) Chloride Level 100 mmol/L (98-107) Carbon Dioxide Level 25 mmol/L (21-32) Anion Gap 10 (6-14) Blood Urea Nitrogen 24 mg/dL (8-26) Creatinine 1.7 mg/dL (0.7-1.3) Estimated GFR (Cockcroft-Gault) 42.1 BUN/Creatinine Ratio 14 (6-20) Glucose Level 264 mg/dL (70-99) Calcium Level 8.2 mg/dL (8.5-10.1) Total Bilirubin 0.7 mg/dL (0.2-1.0) Aspartate Amino Transf (AST/SGOT) 11 U/L (15-37) Alanine Aminotransferase (ALT/SGPT) 17 U/L (16-63) Alkaline Phosphatase 81 U/L (46-116) Total Protein 6.7 g/dL (6.4-8.2) Albumin 3.6 g/dL (3.4-5.0) Albumin/Globulin Ratio 1.2 (1.0-1.7) Glucose (Fingerstick) 330 mg/dL (70-99) IMAGING Imaging PROCEDURE: CT LUMBAR SPINE WO CONTRAST EXAM: CT lumbar spine without contrast. HISTORY: Postoperative, infection. TECHNIQUE: CT of the lumbar spine was performed without intravenous contrast. One or more of the following individualized dose reduction techniques were utilized for this examination: 1. Automated exposure control. 2. Adjustment of the mA and/or kV according to patient size. 3. Use of iterative reconstruction technique. COMPARISON: None. FINDINGS: There is some contrast within the renal collecting systems from a prior administration. Superimposed small renal calculi measure up to 3 mm bilaterally. There is a mild lumbar levocurvature. No fractures are identified. Intervertebral disc heights are maintained. There is mild endplate remodeling from L3 through S1. At L1-2, there is a minimal posterior disc bulge. There is no stenosis. At L2-3, there is a minimal posterior disc bulge. There is mild facet and ligamentum flavum hypertrophy. There is mild right neural foraminal narrowing. At L3-4, there are changes of right hemilaminotomy with resection of the right inferior articular process. There is effacement of the extradural fat posteriorly and laterally on the right, without a clear space-occupying collection, though sensitivity by CT is limited. There is no clear fluid collection within the operative bed. There appears to be residual moderate right lateral recess stenosis versus swelling. There is a small posterior disc bulge. At L4-5, there is a moderate posterior disc bulge. Facet and ligamentum flavum hypertrophy is mild. Central canal stenosis is mild. Neural foraminal stenosis is mild on the left. At L5-S1, there is a small posterior disc bulge likely with a small superimposed central protrusion. Neural foraminal stenosis is mild to moderate on the right. IMPRESSION: 1. L3-4 right hemilaminotomy with resection of the right inferior articular process. There is soft tissue density effacement of the epidural fat laterally and posteriorly on the right which may reflect edema. There appears to be moderate residual right lateral recess stenosis. MRI with and without contrast could exclude a fluid collection if there is persistent concern. 2. Central canal stenosis is mild at L4-5. Neural foraminal stenosis is mild to moderate on the right at L5-S1 and mild elsewhere as above. ASSESSMENT & PLAN Assessment & Plan MICHAEL inhibitor induced angioedema Postoperative wound infection Continue with IV Solu-Medrol twice daily then transition to prednisone taper on 01/25/2021 Appreciate infectious disease recommendations for antibiotic management Pending blood and wound cultures Would avoid MICHAEL inhibitor for now, possible ARB in the future. Pending C4 levels and C1 esterase levels Thank you Dr. Caro for allowing me to see your patient BRIANA CHU MD Jan 23, 2021 12:47
[2021-01-23] MEDS ORDERED: oxyCODONE/APAP 5/325 1 TAB TABLET PO PRN (13:45)
[2021-01-23] MEDS: oxyCODONE/APAP 5/325 1 TAB TABLET PO PRN ×2 (15:57→22:34)
--- NOTE | 2021-01-23 16:20 | PDOC ---
PROGRESS NOTES Date of Service DATE: 01/23/21 TIME: 16:14 Subjective Subjective ambulating in the room with walker to bathroom continues to have back pain swelling of lips overnight, lisinopril stopped, swelling improved with solumedrol and Benadryl Objective Objective Vital Signs Date Time Temp Pulse Resp B/P (MAP) Pulse Ox O2 Delivery O2 Flow Rate FiO2 01/23/21 15:57 Room Air 01/23/21 15:00 97.8 98 18 159/99 (119) 95 97.8 Intake and Output 01/23/21 07:00 Intake Total 520 ml Output Total 400 ml Balance 120 ml Intake Oral 520 ml Output Urine Total 400 ml Physical Exam General: Alert, Oriented X3, Cooperative MUSCULOSKELETAL: Other (KEYES) Neuro: Other Skin: Other (dressing intact, some drainage noted) Plan Plan of Care continue antibiotics per ID Cultures pending wound care/ dressing changes encouraged activity as tolerated SCDs when in bed Comment Review of Relevant I have reviewed the following items lashaun (where applicable) has been applied. Labs Laboratory Tests Test 01/22/21 18:35 01/23/21 11:15 White Blood Count 17.3 x10^3/uL (4.0-11.0) Red Blood Count 5.52 x10^6/uL (4.30-5.70) Hemoglobin 16.1 g/dL (13.0-17.5) Hematocrit 47.6 % (39.0-53.0) Mean Corpuscular Volume 86 fL (79-100) Mean Corpuscular Hemoglobin 29 pg (25-35) Mean Corpuscular Hemoglobin Concent 34 g/dL (31-37) Red Cell Distribution Width 14.6 % (11.5-14.5) Platelet Count 179 x10^3/uL (140-400) Neutrophils (%) (Auto) 86 % (31-73) Lymphocytes (%) (Auto) 7 % (24-48) Monocytes (%) (Auto) 7 % (0-9) Eosinophils (%) (Auto) 1 % (0-3) Basophils (%) (Auto) 0 % (0-3) Neutrophils # (Auto) 14.8 x10^3/uL (1.8-7.7) Lymphocytes # (Auto) 1.2 x10^3/uL (1.0-4.8) Monocytes # (Auto) 1.2 x10^3/uL (0.0-1.1) Eosinophils # (Auto) 0.1 x10^3/uL (0.0-0.7) Basophils # (Auto) 0.1 x10^3/uL (0.0-0.2) Platelet Estimate Adequate (ADEQUATE) Platelet Clumps, EDTA Present Sodium Level 135 mmol/L (136-145) Potassium Level 4.0 mmol/L (3.5-5.1) Chloride Level 100 mmol/L (98-107) Carbon Dioxide Level 25 mmol/L (21-32) Anion Gap 10 (6-14) Blood Urea Nitrogen 24 mg/dL (8-26) Creatinine 1.7 mg/dL (0.7-1.3) Estimated GFR (Cockcroft-Gault) 42.1 BUN/Creatinine Ratio 14 (6-20) Glucose Level 264 mg/dL (70-99) Calcium Level 8.2 mg/dL (8.5-10.1) Total Bilirubin 0.7 mg/dL (0.2-1.0) Aspartate Amino Transf (AST/SGOT) 11 U/L (15-37) Alanine Aminotransferase (ALT/SGPT) 17 U/L (16-63) Alkaline Phosphatase 81 U/L (46-116) Total Protein 6.7 g/dL (6.4-8.2) Albumin 3.6 g/dL (3.4-5.0) Albumin/Globulin Ratio 1.2 (1.0-1.7) Glucose (Fingerstick) 330 mg/dL (70-99) Laboratory Tests Test 01/22/21 18:35 01/23/21 11:15 White Blood Count 17.3 x10^3/uL (4.0-11.0) Red Blood Count 5.52 x10^6/uL (4.30-5.70) Hemoglobin 16.1 g/dL (13.0-17.5) Hematocrit 47.6 % (39.0-53.0) Mean Corpuscular Volume 86 fL (79-100) Mean Corpuscular Hemoglobin 29 pg (25-35) Mean Corpuscular Hemoglobin Concent 34 g/dL (31-37) Red Cell Distribution Width 14.6 % (11.5-14.5) Platelet Count 179 x10^3/uL (140-400) Neutrophils (%) (Auto) 86 % (31-73) Lymphocytes (%) (Auto) 7 % (24-48) Monocytes (%) (Auto) 7 % (0-9) Eosinophils (%) (Auto) 1 % (0-3) Basophils (%) (Auto) 0 % (0-3) Neutrophils # (Auto) 14.8 x10^3/uL (1.8-7.7) Lymphocytes # (Auto) 1.2 x10^3/uL (1.0-4.8) Monocytes # (Auto) 1.2 x10^3/uL (0.0-1.1) Eosinophils # (Auto) 0.1 x10^3/uL (0.0-0.7) Basophils # (Auto) 0.1 x10^3/uL (0.0-0.2) Platelet Estimate Adequate (ADEQUATE) Platelet Clumps, EDTA Present Sodium Level 135 mmol/L (136-145) Potassium Level 4.0 mmol/L (3.5-5.1) Chloride Level 100 mmol/L (98-107) Carbon Dioxide Level 25 mmol/L (21-32) Anion Gap 10 (6-14) Blood Urea Nitrogen 24 mg/dL (8-26) Creatinine 1.7 mg/dL (0.7-1.3) Estimated GFR (Cockcroft-Gault) 42.1 BUN/Creatinine Ratio 14 (6-20) Glucose Level 264 mg/dL (70-99) Calcium Level 8.2 mg/dL (8.5-10.1) Total Bilirubin 0.7 mg/dL (0.2-1.0) Aspartate Amino Transf (AST/SGOT) 11 U/L (15-37) Alanine Aminotransferase (ALT/SGPT) 17 U/L (16-63) Alkaline Phosphatase 81 U/L (46-116) Total Protein 6.7 g/dL (6.4-8.2) Albumin 3.6 g/dL (3.4-5.0) Albumin/Globulin Ratio 1.2 (1.0-1.7) Glucose (Fingerstick) 330 mg/dL (70-99) Microbiology 01/22/21 Gram Stain - Final, Resulted 01/22/21 Aerobic and Anaerobic Culture, Resulted Pending Medications Current Medications Fentanyl Citrate (Fentanyl 2ml Vial) 50 mcg PRN Q2HR PRN IVP PAIN Last admin istered on 01/23/21at 02:11; Start 01/22/21 at 16:00; Stop 01/23/21 at 03:01; Status DC Aspirin (Aspirin Chewable) 81 mg DAILY PO Last administered on 01/23/21at 07:46; Start 01/23/21 at 09:00 Clonidine HCl (Catapres Tts-2) 1 patch WEEKLY TD Last administered on 01/22/21at 16:26; Start 01/22/21 at 17:00 Docusate Sodium (Colace) 100 mg BID PO Last administered on 01/23/21at 07:46; Start 01/22/21 at 21:00 EZETIMIBE (Zetia) 10 mg DAILY PO Last administered on 01/23/21at 07:46; Start 01/23/21 at 09:00 Hydralazine HCl (Apresoline) 50 mg DAILY PO Last administered on 01/23/21at 07:48; Start 01/23/21 at 09:00 Hydrochlorothiazide (Microzide) 12.5 mg DAILY PO Last administered on 01/23/21at 07:47; Start 01/23/21 at 09:00 Acetaminophen/ Hydrocodone Bitart (Lortab 7.5/325) 2 tab PRN Q4HRS PRN PO PAIN Last administered on 01/23/21at 10:25; Start 01/22/21 at 16:00; Stop 01/23/21 at 13:34; Status DC Lisinopril (Prinivil) 20 mg DAILY PO ; Start 01/23/21 at 09:00; Stop 01/23/21 at 06:31; Status DC Methocarbamol (Robaxin) 750 mg TID PRN PRN PO MUSCLE SPASMS Last administered on 01/22/21at 19:41; Start 01/22/21 at 16:00 Atorvastatin Calcium (Lipitor) 80 mg DAILY PO Last administered on 01/23/21at 07:47; Start 01/23/21 at 09:00 Non-Formulary Medication (Empagliflozin (Jardiance)) 25 mg DAILY PO ; Start 01/23/21 at 09:00; Status UNV Febuxostat (Uloric) 80 mg DAILY PO Last administered on 01/23/21at 10:22; Start 01/23/21 at 09:00 Non-Formulary Medication (Icosapent Ethyl (Vascepa)) 1 gm BID PO ; Start 01/22/21 at 21:00; Status UNV Metoprolol Tartrate (Lopressor) 50 mg BID PO Last administered on 01/23/21at 07:47; Start 01/22/21 at 21:00 Probenecid (Benemid) 500 mg BID PO Last administered on 01/23/21at 10:21; Start 01/22/21 at 21:00 Non-Formulary Medication (Semaglutide (Ozempic)) 1 mg WEEKLY SQ ; Start 01/29/21 at 09:00; Status UNV Zolpidem Tartrate (Ambien) 5 mg PRN QHS PRN PO INSOMNIA, MAY REPEAT X1; Start 01/22/21 at 16:15 Insulin Human Lispro (HumaLOG) 0-9 UNITS TIDWMEALS SQ Last administered on 01/23/21at 11:53; Start 01/22/21 at 00:00 Dextrose (Dextrose 50%-Water Syringe) 12.5 gm PRN Q15MIN PRN IV SEE COMMENTS; Start 01/22/21 at 20:45 Diphenhydramine HCl (Benadryl) 50 mg PRN Q6HRS PRN IVP ITCHING Last administered on 01/23/21at 04:19; Start 01/23/21 at 03:00 Diphenhydramine HCl (Benadryl) 100 mg PRN Q6HRS PRN IVP ITCHING; Start 01/23/21 at 03:00 Morphine Sulfate (Morphine Sulfate) 2 mg PRN Q2HR PRN IVP PAIN Last administered on 01/23/21at 11:46; Start 01/23/21 at 03:00 Famotidine (Pepcid Vial) 20 mg BID IVP Last administered on 01/23/21at 06:42; Start 01/23/21 at 07:00 Methylprednisolone Sodium Succinate (SOLU-Medrol 40MG VIAL) 40 mg Q12HR IV Last administered on 01/23/21at 06:42; Start 01/23/21 at 07:00 Daptomycin 640 mg/ Sodium Chloride 50 ml @ 100 mls/hr Q24H IV Last administered on 01/23/21at 11:01; Start 01/23/21 at 10:00; Stop 01/23/21 at 14:59; Status DC Piperacillin Sod/ Tazobactam Sod 3.375 gm/Sodium Chloride 50 ml @ 100 mls/hr Q6HRS IV Last administered on 01/23/21at 10:21; Start 01/23/21 at 10:00 Lactobacillus Rhamnosus (Culturelle) 1 cap BID PO ; Start 01/23/21 at 21:00 Oxycodone/ Acetaminophen (Percocet 5/325) 1 tab PRN Q4HRS PRN PO MODERATE PAIN; Start 01/23/21 at 13:45 Oxycodone/ Acetaminophen (Percocet 5/325) 2 tab PRN Q4HRS PRN PO SEVERE PAIN Last administered on 01/23/21at 15:57; Start 01/23/21 at 13:45 Daptomycin 500 mg/ Sodium Chloride 50 ml @ 100 mls/hr Q24H IV ; Start 01/24/21 at 09:00 Active Scripts Active Colace (Docusate Sodium) 100 Mg Capsule 100 Mg PO BID 60 Days Methocarbamol 750 Mg Tablet 750 Mg PO TID PRN PRN Reported [V-Go 40 Day Kit ] Units SQ Q1HR 5 CLICKS @ MEALS 2 CLICKS @ SNACKS Freestyle Lite Test Strip (Blood Sugar Diagnostic) 1 Each Strip 1 Strip MC DAILY 30 Days Hydrocodone-Apap 7.5-325 (Hydrocodone Bit/Acetaminophen) 1 Tab Tablet 1-2 Tab PO PRN Q4HRS PRN Vascepa (Icosapent Ethyl) 1 Gm Capsule 1 Gm PO BID Zolpidem Tartrate Er (Zolpidem Tartrate) 12.5 Mg Tab.mphase 12.5 Mg PO PRN QHS PRN Probenecid 500 Mg Tablet 500 Mg PO BID Hydrochlorothiazide Capsule (Hydrochlorothiazide) 12.5 Mg Capsule 12.5 Mg PO DAILY Hydralazine Hcl 50 Mg Tablet 1 Tab PO DAILY Uloric (Febuxostat) 80 Mg Tablet 1 Tab PO DAILY 30 Days Clonidine Tts-2 (Clonidine) 1 Each Patch.tdwk 1 Patch TD WEEKLY Bystolic (Nebivolol Hcl) 20 Mg Tablet 20 Mg PO DAILY Aspirin 81 Mg Tab.chew 1 Tab PO DAILY Zetia (Ezetimibe) 10 Mg Tablet 10 Mg PO DAILY Zestril (Lisinopril) 20 Mg Tablet 1 Tab PO DAILY 30 Days Ozempic (Semaglutide) 1 Mg/0.75 Ml Pen.injctr 1 Mg SQ WEEKLY THURSDAY Lipitor (Atorvastatin Calcium) 80 Mg Tablet 1 Tab PO DAILY Jardiance (Empagliflozin) 25 Mg Tablet 25 Mg PO DAILY Vitals/I & O Vital Sign - Last 24 Hours 01/22/21 01/22/21 01/22/21 01/22/21 16:22 16:52 17:36 17:37 Pulse Ox 98 98 O2 Delivery Room Air Room Air Room Air 01/22/21 01/22/21 01/22/21 01/22/21 18:06 19:00 19:42 19:48 Temp 97.7 97.7 Pulse 102 101 Resp 20 B/P (MAP) 131/76 (94) 131/76 Pulse Ox 98 96 98 O2 Delivery Room Air Room Air Room Air 01/22/21 01/22/21 01/23/21 01/23/21 20:00 23:00 02:11 02:15 Temp 98.1 98.1 Pulse 93 Resp 16 20 B/P (MAP) 141/100 (114) Pulse Ox 96 96 O2 Delivery Room Air Room Air Room Air Room Air 01/23/21 01/23/21 01/23/21 01/23/21 02:38 07:00 07:40 07:47 Temp 97.9 97.9 97.9 97.9 Pulse 92 90 90 Resp 20 18 B/P (MAP) 171/109 (129) 152/83 (106) 152/83 Pulse Ox 98 96 O2 Delivery Room Air Room Air Room Air 01/23/21 01/23/21 01/23/21 01/23/21 07:48 10:25 11:00 11:06 Temp 97.9 97.9 Pulse 90 96 Resp 18 B/P (MAP) 152/83 148/87 (107) Pulse Ox 95 O2 Delivery Room Air Room Air Room Air 01/23/21 01/23/21 01/23/21 01/23/21 11:46 12:20 15:00 15:57 Temp 97.8 97.8 Pulse 98 Resp 18 B/P (MAP) 159/99 (119) Pulse Ox 95 O2 Delivery Room Air Room Air Room Air Room Air Intake and Output 01/22/21 01/22/21 01/23/21 15:00 23:00 07:00 Intake Total 320 ml 200 ml Output Total 400 ml Balance -80 ml 200 ml Justifications for Admission Other Justification KEISHA CUEVAS FINGERPRINT CLERK Jan 23, 2021 16:20
--- NOTE | 2021-01-23 20:00 | CONS ---
DATE OF CONSULTATION: 01/23/2021 INTERNAL MEDICINE CONSULTATION CHIEF COMPLAINT: Allergic reaction. HISTORY OF PRESENT ILLNESS: The patient is a pleasant middle-aged male who had a lumbar surgery 2 weeks ago. Apparently, the incision site has become possibly infected. He has now been admitted for consultation with Infectious Disease. Last night, he developed swollen lips. We suspect he is having some angioedema. I have been consulted for further evaluation and treatment. PAST MEDICAL HISTORY: Recent back surgery, hypertension, hyperlipidemia, chronic back pain, GERD, diabetes, and insomnia. ALLERGIES: 1. DULAGLUTIDE. 2. FENTANYL. 3. POSSIBLY LISINOPRIL ?. FAMILY HISTORY: Diabetes. SOCIAL HISTORY: Does not drink, smoke or take drugs. 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 MEDICATIONS: Reviewed, please refer to the MRAD. REVIEW OF SYSTEMS: GENERAL: No history of weight change, weakness or fevers. SKIN: No bruising, hair changes or rashes. EYES: No blurred, double or loss of vision. NOSE AND THROAT: No history of nosebleeds, hoarseness or sore throat. HEENT: He complains of swollen lips. HEART: No history of palpitations, chest pain or shortness of breath on exertion. LUNGS: Denies cough, hemoptysis, wheezing or shortness of breath. GASTROINTESTINAL: Denies changes in appetite, nausea, vomiting, diarrhea or constipation. GENITOURINARY: No history of frequency, urgency, hesitancy or nocturia. NEUROLOGIC: Denies history of numbness, tingling, tremor or weakness. PSYCHIATRIC: No history of panic, anxiety or depression. ENDOCRINE: No history of heat or cold intolerance, polyuria or polydipsia. EXTREMITIES: Denies muscle weakness, joint pain, pain on walking or stiffness. MUSCULOSKELETAL: He complains of back pain. PHYSICAL EXAMINATION: VITALS: Within normal limits and are stable. GENERAL: No apparent distress. Alert and oriented. HEENT: Normal cephalic atraumatic, external auditory canals are patent. He has angioedema of the lips. EYES: Extraocular muscles are intact, pupils are equally round and reactive to light and accommodation MUSCULOSKELETAL: Well developed, well nourished, good range of motion ENDOCRINE: No thyromegaly was palpated LYMPHATICS: No cervical chain or axillary nodes were noted HEMATOPOIETIC: No bruising NECK: Supple, no JVD, no thyromegaly was noted. LUNGS: Clear to auscultation in all lung vanegas without rhonchi or wheezing. HEART: RRR, S1, S2 present. Peripheral pulses intact, no obvious murmurs were noted. ABDOMEN: Soft, nontender. Positive bowel sounds no organomegaly, normal bowel sounds. EXTREMITIES: Without any cyanosis, clubbing, or edema. Pedal pulses intact, Homans sign is negative. NEUROLOGIC: Normal speech, normal tone. A and O x 3, moves all extremities, no obvious focal deficits. PSYCHIATRIC: Normal affect, normal mood. Stable. SKIN: He has a clean, dry intact incision on his lumbar spine. VASCULAR: Good capillary refill, neurovascular bundle appears to be intact. PSYCHIATRIC: No history of panic, anxiety or depression. LABORATORY DATA: White count 17. Sodium is 135. ASSESSMENT AND PLAN: Angioedema, suspect possibly from his MICHAEL inhibitors, but also he has received several new meds including fentanyl, so we are not sure. Nevertheless, I discussed the case with the nurse. We have ordered Solu-Medrol, Pepcid and Benadryl. Trend labs. PT/OT, wound care, IV antibiotics per Infectious Disease. We will follow. AURELIA/ALFREDA/ATLHEA DR: AURELIA/anu TID: [id number]
--- NOTE | 2021-01-23 20:42 | CONS ---
DATE OF CONSULTATION: 01/23/2021 REFERRING PHYSICIAN: Yaron Almonte MD REASON FOR CONSULTATION: Post-surgery spine infection. HISTORY OF PRESENT ILLNESS: This is a 55-year-old gentleman with a history of diabetes, hypertension and renal insufficiency, who had a large herniated disk. The patient underwent a hemilaminotomy and microdiscectomy at L3-L4 on 01/09/2021. The patient says he has had some drainage post surgery, but in the last two days, pain has gotten significantly more and increased drainage. The patient was put on, I believe, Keflex last from Neurosurgery and he had not been taking in the last two to three days since he just could not handle the pain. The pain was radiating down into the legs, more so on the right. The patient denied any incontinence, urinary or bladder. Denies any fever. Some nausea present. No vomiting. Denies any chest pain, shortness of breath, abdominal pain. The patient is admitted for further management and culture now has been taken. PAST MEDICAL HISTORY: Positive for diabetes mellitus, hypertension. He has had a craniotomy in the past, another lumbar surgery in 2016 as well as staph infection in 2009 required 6 weeks of IV antibiotics, hyperlipidemia. SOCIAL HISTORY: Negative for smoking. Social alcohol use. No drug use. ALLERGIES: No known drug allergies. CURRENT MEDICATIONS: Reviewed. REVIEW OF SYSTEMS: As in HPI. All other systems reviewed are negative. PHYSICAL EXAMINATION: GENERAL: Alert, oriented gentleman, not in distress. VITAL SIGNS: Stable. Temperature 97.9, pulse 90, respirations 18, blood pressure 152/83. HEENT: Both pupils are round and reacting. No conjunctival lesion. No lesion in the mouth. NECK: Supple. No JVP. No lymphadenopathy. LUNGS: Clear. HEART: S1, S2, regular. ABDOMEN: Soft, nontender. No organomegaly. EXTREMITIES: No edema, cyanosis. SKIN: The patient does have some hives from fentanyl and lip swelling. SPINE: There is incision with drainage present. NEUROLOGIC: The patient is alert, awake and appropriate. No focal neurologic deficit. LABORATORY DATA: White count is 17.3. BUN and creatinine is [address] of the spine was done yesterday, it was unremarkable for any abscess. IMPRESSION: 1. Postsurgical spine infection. 2. Status post right-sided hemilaminotomy and microdiscectomy L3-L4 done on 01/09/2021. 3. Diabetes mellitus. 4. Hypertension. 5. Leukocytosis. 6. Renal insufficiency. RECOMMENDATIONS: Would initiate daptomycin and Zosyn. Supportive care. We will follow the cultures and adjust and would aggressively treat with long-term IV antibiotics. Thank you very much, Dr. Almonte for giving me opportunity to participate in this patient's care. LAINA/GIR/AMI DR: LAINA/anu TID: [id number]
[2021-01-23] MEDS: LACTOBACILLUS RHAMNOSUS GG 1 CAPSULE. PO SCH (21:00)
--- NOTE | 2021-01-24 00:10 | NUR ---
Patient's BP 189/118. Patient is confused and agitated. Found wandering the halls at one point, states he needs to get in his truck to get his mask. Believes he is in [place]. Found him with his home med organizer and pills in his hand. FSBS 311. Dr Pardo notified of patient status and orders rec'd. Meds sent to Pharmacy for ID. No narcs or benzos found. Geodon and Apresoline given. Surgical incision cleansed and dressing changed earlier. Continues to ooze.
[2021-01-24] MEDS: ZIPRASIDONE 20 MG CAPSULE PO PRN (00:18)
[2021-01-24] MEDS: hydrALAZINE 25 MG TABLET PO SCH ×4 (00:18→20:41)
[2021-01-24] MEDS ORDERED: INSULIN LISPRO 300 UNITS/3 ML VIAL. SQ ONE ×2 (00:30→22:00)
--- NOTE | 2021-01-24 01:25 | NUR ---
Denice Alanis called. 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 Walking around the halls. Went into an occupied room. Laid in bed at Security's request.
[2021-01-24] MEDS: ZIPRASIDONE IM 20 MG VIAL. IM PRN ×2 (01:51→06:05)
--- NOTE | 2021-01-24 01:59 | NUR ---
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 Security here, patient assisted into recliner, Maureen PATEL by MAXIMO Hadley.
[2021-01-24 03:09] VITALS: BP 164/101
--- NOTE | 2021-01-24 03:39 | NUR ---
Laying in bed, eyes closed. Wakes easily, confusion continues. "Did you guys take pictures of the computer?" bed alarm set.
--- NOTE | 2021-01-24 06:08 | NUR ---
Code Alanis called. Patient confused and agitated. Moving furniture in the room. Wants to walk in the halls. Aggressive toward security guards. unable to use reason and logic. Maureen given IM.
[2021-01-24] MEDS: PIPERACILLIN/TAZOBACTAM 3.375 GM in IV NORMAL SALINE 50ML 50 ML IV SCH ×3 (06:13→17:06)
--- NOTE | 2021-01-24 06:28 | NUR ---
Patient pulled IV out while Zosyn was running. "I don't know why."
[2021-01-24 07:00] VITALS: BP 189/125
--- NOTE | 2021-01-24 08:00 | NUR ---
Ambulating in hallways with his phone in hand and car keys. Going into other patients rooms. Had to redirect pt back to room. Ambulating with steady gait. Cont. monitor.
--- NOTE | 2021-01-24 08:23 | PDOC ---
Infectious Disease Note Subjective Subjective Patient is feeling good has less back pain says no other complaints. He did have a episode last night of severe confusion and agitation and he was wandering on a second floor as well as he ripped sharps container. ROS ROS No nausea vomiting diarrhea chest pain shortness of breath or fever or headache Vital Sign Vital Signs Vital Signs Date Time Temp Pulse Resp B/P (MAP) Pulse Ox O2 Delivery O2 Flow Rate FiO2 01/24/21 07:00 98.0 110 20 189/125 (146) Room Air 98.0 01/24/21 03:09 96 Physical Exam PHYSICAL EXAM GENERAL: Alert, oriented gentleman, not in distress. VITAL SIGNS: Stable. HEENT: Both pupils are round and reacting. No conjunctival lesion. No lesion in the mouth. NECK: Supple. No JVP. No lymphadenopathy. LUNGS: Clear. HEART: S1, S2, regular. ABDOMEN: Soft, nontender. No organomegaly. EXTREMITIES: No edema, cyanosis. SKIN: The patient does have some hives from fentanyl and lip swelling. SPINE: There is incision with drainage present. NEUROLOGIC: The patient is alert, awake and appropriate. No focal neurologic deficit. Labs Lab Laboratory Tests Test 01/23/21 11:15 Glucose (Fingerstick) 330 mg/dL (70-99) Micro GRAM STAIN Final Final NO ORGANISMS SEEN. SQUAMOUS EPI CELL:RARE PMN (WBCs):RARE Unless otherwise specified, Testing Performed by: [address] [id number] For Inquires, the Physician may contact the Microbiology department at [phone] ANAEROBIC-AEROBIC CULTURE Preliminary Preliminary FEW GRAM POSITIVE COCCI on 01/24/21 at 0822 FINAL ID= [STAPHYLOCOCCUS AUREUS] STAPHYLOCOCCUS AUREUS Unless otherwise specified, Testing Performed by: [address] [address] For Inquires, the Physician may contact the Microbiology department at [phone] Objective Assessment IMPRESSION: 1. Postsurgical spine infection. 2. Status post right-sided hemilaminotomy and microdiscectomy L3-L4 done on 01/09/2021. 3. Diabetes mellitus. 4. Hypertension. 5. Leukocytosis. 6. Renal insufficiency. Plan Plan of Care Agitation and encephalopathy of unclear etiology, we should do drug screen Patient is back to his normal Continue antibiotics If no more episodes then hopefully tomorrow with staph aureus susceptibilities are known will discharge on IV antibiotics BONNIE SARMIENTO MD Jan 24, 2021 08:23
[2021-01-24] MEDS: hydroCHLOROthiazide 12.5 MG CAPSULE PO SCH (08:39)
[2021-01-24] MEDS: PROBENECID 500 MG TABLET PO SCH ×2 (08:39→20:41)
[2021-01-24] MEDS: ASPIRIN CHEWABLE 81 MG TABLET. PO SCH (08:39)
[2021-01-24] MEDS: ATORVASTATIN CALCIUM 40 MG TABLET. PO SCH (08:39)
[2021-01-24] MEDS: METOPROLOL TART IMMED RELEASE 50 MG TABLET. PO SCH ×2 (08:40→20:42)
[2021-01-24] MEDS: FEBUXOSTAT 40 MG TABLET PO SCH (08:41)
[2021-01-24] MEDS: LACTOBACILLUS RHAMNOSUS GG 1 CAPSULE. PO SCH ×2 (08:41→20:42)
[2021-01-24] MEDS: EZETIMIBE 10 MG TABLET. PO SCH (08:45)
[2021-01-24] MEDS: DOCUSATE SODIUM 100 MG CAPSULE. PO SCH ×2 (08:46→20:43)
[2021-01-24] MEDS: INSULIN LISPRO 300 UNITS/3 ML VIAL. SQ SCH ×3 (08:48→17:16)
[2021-01-24] MEDS: FAMOTIDINE 20 MG/2 ML VIAL IVP SCH ×2 (09:00→20:42)
--- NOTE | 2021-01-24 09:30 | NUR ---
Unable to find patient. Called security to locate pt's. Pt was found [address] wondering around. Wasn't sure where he was going. Returned to room. and constantly needed to be monitored.
[2021-01-24 10:15] LABS: BASO % 0 % (0-3); CALCIUM 8.9 mg/dL (8.5-10.1); CREATININE 1.6 mg/dL (0.7-1.3); EOS % 0 % (0-3); GFR 45.1; HEMATOCRIT 45.5 % (39.0-53.0); HEMOGLOBIN 15.3 g/dL (13.0-17.5); LYMPH # 0.8 x10^3/uL (1.0-4.8); LYMPH % 5 % (24-48); MEAN CORPUSCULAR HEMOGLOBIN 29 pg (25-35); MEAN CORPUSCULAR HGB CONC 34 g/dL (31-37); MEAN CORPUSCULAR VOLUME 87 fL (79-100); MONO # 0.4 x10^3/uL (0.0-1.1); MONO % 3 % (0-9); NEUT # 13.3 x10^3/uL (1.8-7.7); NEUT % 92 % (31-73); PLATELET COUNT 215 x10^3/uL (140-400); POTASSIUM 4.2 mmol/L (3.5-5.1); RED BLOOD COUNT 5.23 x10^6/uL (4.30-5.70); RED CELL DISTRIBUTION WIDTH 14.6 % (11.5-14.5); WHITE BLOOD COUNT 14.5 x10^3/uL (4.0-11.0)
[2021-01-24 11:00] VITALS: BP 164/99
[2021-01-24] MEDS ORDERED: LIDOCAINE WITH 8.4% SOD BICARB 3 ML DISP.SYRIN. ONE ×2 (12:11→12:21)
--- NOTE | 2021-01-24 12:14 | PDOC ---
[facility] PROGRESS NOTE Date of Service DOS: DATE: 01/24/21 TIME: 12:08 Chief Complaint Chief Complaint MICHAEL inhibitor induced angioedema Postoperative wound infection Continue with IV Solu-Medrol twice daily then transition to prednisone taper on 01/25/2021 Appreciate infectious disease recommendations for antibiotic management Pending blood and wound cultures Would avoid MICHAEL inhibitor for now, possible ARB in the future. Pending C4 levels and C1 esterase levels History of Present Illness History of Present Illness 55-year-old male who underwent lumbar hemilaminectomy of the L3-L4 levels on January 09, 2021. He was actually discharged home the following day was doing well. Unfortunately patient had a surgical site complication with infection he was started on Keflex and failed p.o. antibiotics over the weekend. There was increasing pain and serous drainage from incision and he was brought in for further evaluation and IV antibiotics. He was given fentanyl for pain and patient was on lisinopril chronically. Unfortunately patient had angioedema most likely with his use of MICHAEL inhibitors. Infectious diseases consulted for antibiotic management. Patient interviewed bedside and he was doing well. He denies any throat swelling or wheezing or trouble breathing. He does not have any periorbital edema or facial swelling. Only upper portion of his lip is swollen and his tongue is fine. He is speaking in full sentences without any use of his accessory muscles. Denies fevers, confusion, syncope, chest pain, shortness of breath, abdominal pain, diarrhea or hematuria. 01/24/2021 Patient had an acute agitative and confusion episode last night. Patient ripped out the sharps container from the wall. He appears to be close to his baseline today and appears lethargic but talking on the phone. Sitting on the recliner and not agitated at this time. No fevers somewhat tachycardic and no hypotensive episodes. Swelling of his upper lip appears to be improved. No redness or swelling. Patient will likely benefit from a PICC line placement for long-term IV antibiotics. Will defer the timing and course to infectious disease. Patient's chart, labs, images were reviewed and discussed with RN Vitals/I&O Vitals/I&O: Vital Signs Date Time Temp Pulse Resp B/P (MAP) Pulse Ox O2 Delivery O2 Flow Rate FiO2 01/24/21 08:41 105 185/116 01/24/21 08:15 Room Air 01/24/21 07:00 98.0 20 98.0 01/24/21 03:09 96 I & O 01/23/21 01/23/21 01/24/21 15:00 23:00 07:00 Intake Total 525 ml 350 ml 150 ml Output Total 200 ml 0 ml Balance 325 ml 350 ml 150 ml Physical Exam Physical Exam: GENERAL: Alert, oriented gentleman, not in distress. VITAL SIGNS: Stable. HEENT: Both pupils are round and reacting. No conjunctival lesion. No lesion in the mouth. NECK: Supple. No JVP. No lymphadenopathy. LUNGS: Clear. HEART: S1, S2, regular. ABDOMEN: Soft, nontender. No organomegaly. EXTREMITIES: No edema, cyanosis. SKIN: The patient does have some hives from fentanyl and lip swelling. SPINE: There is incision with drainage present. NEUROLOGIC: The patient is alert, awake and appropriate. No focal neurologic deficit. General: Alert, Cooperative Heart: Regular rate Lungs: Clear Abdomen: Normal bowel sounds Extremities: No clubbing Skin: Other (dressing intact, some drainage noted) Labs Labs: Laboratory Tests Test 01/24/21 09:35 White Blood Count 14.5 x10^3/uL (4.0-11.0) Red Blood Count 5.23 x10^6/uL (4.30-5.70) Hemoglobin 15.3 g/dL (13.0-17.5) Hematocrit 45.5 % (39.0-53.0) Mean Corpuscular Volume 87 fL (79-100) Mean Corpuscular Hemoglobin 29 pg (25-35) Mean Corpuscular Hemoglobin Concent 34 g/dL (31-37) Red Cell Distribution Width 14.6 % (11.5-14.5) Platelet Count 215 x10^3/uL (140-400) Neutrophils (%) (Auto) 92 % (31-73) Lymphocytes (%) (Auto) 5 % (24-48) Monocytes (%) (Auto) 3 % (0-9) Eosinophils (%) (Auto) 0 % (0-3) Basophils (%) (Auto) 0 % (0-3) Neutrophils # (Auto) 13.3 x10^3/uL (1.8-7.7) Lymphocytes # (Auto) 0.8 x10^3/uL (1.0-4.8) Monocytes # (Auto) 0.4 x10^3/uL (0.0-1.1) Eosinophils # (Auto) 0.0 x10^3/uL (0.0-0.7) Basophils # (Auto) 0.0 x10^3/uL (0.0-0.2) Sodium Level 134 mmol/L (136-145) Potassium Level 4.2 mmol/L (3.5-5.1) Chloride Level 97 mmol/L (98-107) Carbon Dioxide Level 24 mmol/L (21-32) Anion Gap 13 (6-14) Blood Urea Nitrogen 32 mg/dL (8-26) Creatinine 1.6 mg/dL (0.7-1.3) Estimated GFR (Cockcroft-Gault) 45.1 Glucose Level 375 mg/dL (70-99) Calcium Level 8.9 mg/dL (8.5-10.1) Creatine Kinase 58 U/L (39-308) Comment Review of Relevant I have reviewed the following items lashaun (where applicable) has been applied. Medications: Current Medications Medications (Trade) Dose Ordered Sig/Zain Route PRN Reason Start Time Stop Time Status Last Admin Dose Admin Lactobacillus Rhamnosus (Culturelle) 1 cap BID PO 01/23/21 21:00 01/24/21 08:41 Oxycodone/ Acetaminophen (Percocet 5/325) 2 tab PRN Q4HRS PRN PO SEVERE PAIN 01/23/21 13:45 01/23/21 22:34 Ziprasidone (Geodon) 20 mg PRN Q2HRS PRN PO ANXIETY / AGITATION 01/24/21 00:00 01/24/21 00:18 Hydralazine HCl (Apresoline) 25 mg TID PO 01/24/21 00:30 01/24/21 08:40 Insulin Human Lispro (HumaLOG) 5 units 1X ONCE SQ 01/24/21 00:30 01/24/21 00:31 DC 01/24/21 00:19 Ziprasidone (Geodon Im) 10 mg PRN Q2HRS PRN IM AGITATION 01/24/21 00:15 01/24/21 06:05 Justifications for Admission Other Justification BRIANA CHU MD Jan 24, 2021 12:13
[2021-01-24] MEDS ORDERED: LIDOCAINE WITH 8.4% SOD BICARB 3 ML DISP.SYRIN. INJ ONE (12:30)
[2021-01-24 12:47] LABS: AMPHETAMINE/METHAMPHETAMINE NEG (NEG); BARBITURATES NEG (NEG); BENZODIAZEPINES NEG (NEG); CANNABINOIDS NEG (NEG); COCAINE NEG (NEG); METHADONE NEG (NEG); OPIATES POS (NEG); PHENCYCLIDINE NEG (NEG)
[2021-01-24 13:19] LABS: % BANDS 2 % (0-9); % LYMPHS 7 % (24-48); % MONOS 2 % (0-10); % SEGS 89 % (35-66); PLT ESTIMATE ADEQUATE (ADEQUATE)
--- NOTE | 2021-01-24 13:19 | NUR ---
Pt to IR for PICC line placement. R upper arm, double lumen PICC. Report to Rosa MARSH.
[2021-01-24] MEDS: MORPHINE SULFATE 2 MG/ML INJ. IVP PRN ×4 (13:49→22:02)
[2021-01-24] MEDS: DAPTOmycin (GENERIC) IVPB 500 MG in IV NORMAL SALINE 50ML 50 ML IV SCH (14:01)
[2021-01-24] MEDS: oxyCODONE/APAP 5/325 1 TAB TABLET PO PRN ×3 (14:56→23:08)
[2021-01-24 15:00] VITALS: BP 173/103
[2021-01-24] MEDS: methylPREDNISolone SOD SUCC PF 40 MG/ML VIAL. IV SCH ×2 (15:00→20:42)
[2021-01-24] MEDS ORDERED: GADOTERATE 7.5 MMOL/15ML VIAL. IVP ONE (15:30)
--- NOTE | 2021-01-24 15:32 | RAD ---
Date: 01/24/2021 Exam: Fluoroscopic and ultrasound guided peripheral central venous catheter placement. Indication: Consent: The procedure was explained in its entirety to the patient or the patients designated repres entative by a member of the treatment team, including a discussion of the risks, benefits and commonl y accepted alternatives to the procedure, as well as the expected consequences of no therapy whatsoev er. Discussion of the risks included, but was not limited to, those that are most frequent and thos e that are rare but possibly severe or life-threatening, as well as the possibility of unforeseen com plications. Discussion: A timeout procedure was performed. The patient was prepped and draped using maximum sterile techniq ue, including the use of: Current guideline approved cutaneous antisepsis, a large sterile sheet to e stablish a sterile field. Additionally the power plant operators supervisor wore a hat, mask, sterile gloves, a sterile gown during the procedure as well as practiced acceptable hand hygiene prior to placing the line. 1% lidoc ruy was administered for local anesthesia. Ultrasound evaluation demonstrates a patent right cephalic vein. Reference images were saved in the medical record. The selected vein was accessed using micropuncture technique. A guidewire was advance d centrally. The PICC line was cut to length, and advanced through a peel-away sheath such that it's tip resides at the cavoatrial junction. The peel-away sheath a sheath was removed. The catheter was secured in place. The catheter was found to flush and aspirate normally.. Sterile dressings were appl ied. No immediate complications were identified. Fluoroscopy time: 0.1 minutes Dose area product: 1 ycm2 Impression: Successful placement of a right upper extremity PICC line Electronically signed by: Rodger Miguel MD (01/24/2021 3:30 PM) [id number]
--- NOTE | 2021-01-24 16:00 | NUR ---
Pt better and not so confused. Following comands and apologizing for his behavior. Pt doesn't really remember much. Spoke with close family friend and stated pt gets crazy when taking Ambien. Pt still takes it at home. When asked he stated its the only thing that makes him sleep.
--- NOTE | 2021-01-24 16:48 | RAD ---
EXAM: MRI LUMBAR SPINE WITH AND WITHOUT CONTRAST. HISTORY: Postoperative infection, lumbar surgery. TECHNIQUE: Magnetic resonance images of the lumbar spine were obtained before and after the intraveno us administration of 20 mL Gadavist. COMPARISON: None. FINDINGS: Alignment is normal. No fractures are identified. Intervertebral disc heights are maintaine d. The conus is at L1 and appears normal. There are no enhancing parenchymal lesions. From T12-L3, there is no stenosis. At L3-4, there are changes of right hemilaminectomy with resection of the right inferior articular pr ocess. There is a small fluid collection within the resection bed measuring 1.9 x 1.6 cm. There is a small perforation of the right ligamentum flavum. There is mild narrowing of the thecal sac and right lateral recess. Right neural foraminal stenosis is moderate. At L4-5, there is a small posterior disc bulge. There is mild ligamentum flavum hypertrophy. Lateral recess stenosis is mild on the right greater than left. At L5-S1, there is a small right paracentral inferior extrusion. This narrows the right lateral reces s mildly. There is mild bilateral neural foraminal narrowing. IMPRESSION: 1. Right L3-4 laminectomies with resection of the inferior articular process. A small fluid collectio n fills the resection bed at L3-4 without significant mass effect. There is moderate residual right n eural foraminal stenosis and mild right recess stenosis, though specificity is low in the postoperati ve setting. 2. Small inferior disc extrusion in the right lateral recess of L5-S1. Electronically signed by: Ashlyn Sapp MD (01/24/2021 4:46 PM) [facility]
--- NOTE | 2021-01-24 18:23 | PDOC ---
PROGRESS NOTES Date of Service DATE: 01/24/21 TIME: 18:15 Subjective Subjective patient seen at 1500 confused and agitated overnight, thinks it was due to Ambien, feels better now continues to have back pain has been up ambulating with walker PICC line placed today Objective Objective Vital Signs Date Time Temp Pulse Resp B/P (MAP) Pulse Ox O2 Delivery O2 Flow Rate FiO2 01/24/21 17:07 Room Air 01/24/21 15:00 97.7 96 20 173/103 (126) 96 97.7 Intake and Output 01/24/21 07:00 Intake Total 1025 ml Output Total 200 ml Balance 825 ml Intake Oral 1025 ml Output Urine Total 200 ml Stool Total 0 ml # Voids 6 Physical Exam General: Alert, Oriented X3, Cooperative Neuro: Other (KEYES) Skin: Other (dressing intact, recently changed per RN) Plan Plan of Care awaiting sensitivities from cultures antibiotics per ID MRI pending activity as tolerated D/W RN Comment Review of Relevant I have reviewed the following items lashaun (where applicable) has been applied. Labs Laboratory Tests Test 01/22/21 18:35 01/23/21 11:15 01/23/21 13:10 01/24/21 09:00 White Blood Count 17.3 x10^3/uL (4.0-11.0) Red Blood Count 5.52 x10^6/uL (4.30-5.70) Hemoglobin 16.1 g/dL (13.0-17.5) Hematocrit 47.6 % (39.0-53.0) Mean Corpuscular Volume 86 fL (79-100) Mean Corpuscular Hemoglobin 29 pg (25-35) Mean Corpuscular Hemoglobin Concent 34 g/dL (31-37) Red Cell Distribution Width 14.6 % (11.5-14.5) Platelet Count 179 x10^3/uL (140-400) Neutrophils (%) (Auto) 86 % (31-73) Lymphocytes (%) (Auto) 7 % (24-48) Monocytes (%) (Auto) 7 % (0-9) Eosinophils (%) (Auto) 1 % (0-3) Basophils (%) (Auto) 0 % (0-3) Neutrophils # (Auto) 14.8 x10^3/uL (1.8-7.7) Lymphocytes # (Auto) 1.2 x10^3/uL (1.0-4.8) Monocytes # (Auto) 1.2 x10^3/uL (0.0-1.1) Eosinophils # (Auto) 0.1 x10^3/uL (0.0-0.7) Basophils # (Auto) 0.1 x10^3/uL (0.0-0.2) Platelet Estimate Adequate (ADEQUATE) Platelet Clumps, EDTA Present Sodium Level 135 mmol/L (136-145) Potassium Level 4.0 mmol/L (3.5-5.1) Chloride Level 100 mmol/L (98-107) Carbon Dioxide Level 25 mmol/L (21-32) Anion Gap 10 (6-14) Blood Urea Nitrogen 24 mg/dL (8-26) Creatinine 1.7 mg/dL (0.7-1.3) Estimated GFR (Cockcroft-Gault) 42.1 BUN/Creatinine Ratio 14 (6-20) Glucose Level 264 mg/dL (70-99) Calcium Level 8.2 mg/dL (8.5-10.1) Total Bilirubin 0.7 mg/dL (0.2-1.0) Aspartate Amino Transf (AST/SGOT) 11 U/L (15-37) Alanine Aminotransferase (ALT/SGPT) 17 U/L (16-63) Alkaline Phosphatase 81 U/L (46-116) Total Protein 6.7 g/dL (6.4-8.2) Albumin 3.6 g/dL (3.4-5.0) Albumin/Globulin Ratio 1.2 (1.0-1.7) Glucose (Fingerstick) 330 mg/dL (70-99) Complement C4 20 mg/dL (12-38) Urine Opiates Screen Pos (NEG) Urine Methadone Screen Neg (NEG) Urine Barbiturates Neg (NEG) Urine Phencyclidine Screen Neg (NEG) Urine Amphetamine/Methamphetamine Neg (NEG) Urine Benzodiazepines Screen Neg (NEG) Urine Cocaine Screen Neg (NEG) Urine Cannabinoids Screen Neg (NEG) Urine Ethyl Alcohol Neg (NEG) Test 01/24/21 09:35 01/24/21 12:07 01/24/21 16:32 White Blood Count 14.5 x10^3/uL (4.0-11.0) Red Blood Count 5.23 x10^6/uL (4.30-5.70) Hemoglobin 15.3 g/dL (13.0-17.5) Hematocrit 45.5 % (39.0-53.0) Mean Corpuscular Volume 87 fL (79-100) Mean Corpuscular Hemoglobin 29 pg (25-35) Mean Corpuscular Hemoglobin Concent 34 g/dL (31-37) Red Cell Distribution Width 14.6 % (11.5-14.5) Platelet Count 215 x10^3/uL (140-400) Neutrophils (%) (Auto) 92 % (31-73) Lymphocytes (%) (Auto) 5 % (24-48) Monocytes (%) (Auto) 3 % (0-9) Eosinophils (%) (Auto) 0 % (0-3) Basophils (%) (Auto) 0 % (0-3) Neutrophils # (Auto) 13.3 x10^3/uL (1.8-7.7) Lymphocytes # (Auto) 0.8 x10^3/uL (1.0-4.8) Monocytes # (Auto) 0.4 x10^3/uL (0.0-1.1) Eosinophils # (Auto) 0.0 x10^3/uL (0.0-0.7) Basophils # (Auto) 0.0 x10^3/uL (0.0-0.2) Segmented Neutrophils % 89 % (35-66) Band Neutrophils % 2 % (0-9) Lymphocytes % 7 % (24-48) Monocytes % 2 % (0-10) Platelet Estimate Adequate (ADEQUATE) Sodium Level 134 mmol/L (136-145) Potassium Level 4.2 mmol/L (3.5-5.1) Chloride Level 97 mmol/L (98-107) Carbon Dioxide Level 24 mmol/L (21-32) Anion Gap 13 (6-14) Blood Urea Nitrogen 32 mg/dL (8-26) Creatinine 1.6 mg/dL (0.7-1.3) Estimated GFR (Cockcroft-Gault) 45.1 Glucose Level 375 mg/dL (70-99) Calcium Level 8.9 mg/dL (8.5-10.1) Creatine Kinase 58 U/L (39-308) Glucose (Fingerstick) 256 mg/dL (70-99) 221 mg/dL (70-99) Laboratory Tests Test 01/24/21 09:00 01/24/21 09:35 01/24/21 12:07 01/24/21 16:32 Urine Opiates Screen Pos (NEG) Urine Methadone Screen Neg (NEG) Urine Barbiturates Neg (NEG) Urine Phencyclidine Screen Neg (NEG) Urine Amphetamine/Methamphetamine Neg (NEG) Urine Benzodiazepines Screen Neg (NEG) Urine Cocaine Screen Neg (NEG) Urine Cannabinoids Screen Neg (NEG) Urine Ethyl Alcohol Neg (NEG) White Blood Count 14.5 x10^3/uL (4.0-11.0) Red Blood Count 5.23 x10^6/uL (4.30-5.70) Hemoglobin 15.3 g/dL (13.0-17.5) Hematocrit 45.5 % (39.0-53.0) Mean Corpuscular Volume 87 fL (79-100) Mean Corpuscular Hemoglobin 29 pg (25-35) Mean Corpuscular Hemoglobin Concent 34 g/dL (31-37) Red Cell Distribution Width 14.6 % (11.5-14.5) Platelet Count 215 x10^3/uL (140-400) Neutrophils (%) (Auto) 92 % (31-73) Lymphocytes (%) (Auto) 5 % (24-48) Monocytes (%) (Auto) 3 % (0-9) Eosinophils (%) (Auto) 0 % (0-3) Basophils (%) (Auto) 0 % (0-3) Neutrophils # (Auto) 13.3 x10^3/uL (1.8-7.7) Lymphocytes # (Auto) 0.8 x10^3/uL (1.0-4.8) Monocytes # (Auto) 0.4 x10^3/uL (0.0-1.1) Eosinophils # (Auto) 0.0 x10^3/uL (0.0-0.7) Basophils # (Auto) 0.0 x10^3/uL (0.0-0.2) Segmented Neutrophils % 89 % (35-66) Band Neutrophils % 2 % (0-9) Lymphocytes % 7 % (24-48) Monocytes % 2 % (0-10) Platelet Estimate Adequate (ADEQUATE) Sodium Level 134 mmol/L (136-145) Potassium Level 4.2 mmol/L (3.5-5.1) Chloride Level 97 mmol/L (98-107) Carbon Dioxide Level 24 mmol/L (21-32) Anion Gap 13 (6-14) Blood Urea Nitrogen 32 mg/dL (8-26) Creatinine 1.6 mg/dL (0.7-1.3) Estimated GFR (Cockcroft-Gault) 45.1 Glucose Level 375 mg/dL (70-99) Calcium Level 8.9 mg/dL (8.5-10.1) Creatine Kinase 58 U/L (39-308) Glucose (Fingerstick) 256 mg/dL (70-99) 221 mg/dL (70-99) Microbiology 01/22/21 Gram Stain - Final, Resulted 01/22/21 Aerobic and Anaerobic Culture - Preliminary, Resulted Medications Current Medications Fentanyl Citrate (Fentanyl 2ml Vial) 50 mcg PRN Q2HR PRN IVP PAIN Last administered on 01/23/21at 02:11; Start 01/22/21 at 16:00; Stop 01/23/21 at 03:01; Status DC Aspirin (Aspirin Chewable) 81 mg DAILY PO Last administered on 01/24/21at 08:39; Start 01/23/21 at 09:00 Clonidine HCl (Catapres Tts-2) 1 patch WEEKLY TD Last administered on 03/24/20at 16:26; Start 01/22/21 at 17:00 Docusate Sodium (Colace) 100 mg BID PO Last administered on 01/24/21at 08:46; Start 01/22/21 at 21:00 EZETIMIBE (Zetia) 10 mg DAILY PO Last administered on 01/24/21at 08:45; Start 01/23/21 at 09:00 Hydralazine HCl (Apresoline) 50 mg DAILY PO Last administered on 01/24/21at 08:41; Start 01/23/21 at 09:00; Stop 01/24/21 at 14:47; Status DC Hydrochlorothiazide (Microzide) 12.5 mg DAILY PO Last administered on 01/24/21at 08:39; Start 01/23/21 at 09:00 Acetaminophen/ Hydrocodone Bitart (Lortab 7.5/325) 2 tab PRN Q4HRS PRN PO PAIN Last administered on 01/23/21at 10:25; Start 01/22/21 at 16:00; Stop 01/23/21 at 13:34; Status DC Lisinopril (Prinivil) 20 mg DAILY PO ; Start 01/23/21 at 09:00; Stop 01/23/21 at 06:31; Status DC Methocarbamol (Robaxin) 750 mg TID PRN PRN PO MUSCLE SPASMS Last administered on 01/22/21at 19:41; Start 01/22/21 at 16:00 Atorvastatin Calcium (Lipitor) 80 mg DAILY PO Last administered on 01/24/21at 08:39; Start 01/23/21 at 09:00 Non-Formulary Medication (Empagliflozin (Jardiance)) 25 mg DAILY PO ; Start 01/23/21 at 09:00; Stop 01/23/21 at 18:17; Status DC Febuxostat (Uloric) 80 mg DAILY PO Last administered on 01/24/21at 08:41; Start 01/23/21 at 09:00 Non-Formulary Medication (Icosapent Ethyl (Vascepa)) 1 gm BID PO ; Start 01/22/21 at 21:00; Stop 01/23/21 at 18:18; Status DC Metoprolol Tartrate (Lopressor) 50 mg BID PO Last administered on 01/24/21at 08:40; Start 01/22/21 at 21:00 Probenecid (Benemid) 500 mg BID PO Last administered on 01/24/21at 08:39; Start 01/22/21 at 21:00 Non-Formulary Medication (Semaglutide (Ozempic)) 1 mg WEEKLY SQ ; Start 01/29/21 at 09:00; Status UNV Zolpidem Tartrate (Ambien) 5 mg PRN QHS PRN PO INSOMNIA, MAY REPEAT X1 Last administered on 01/23/21at 21:00; Start 01/22/21 at 16:15 Insulin Human Lispro (HumaLOG) 0-9 UNITS TIDWMEALS SQ Last administered on 01/24/21at 17:16; Start 01/22/21 at 00:00 Dextrose (Dextrose 50%-Water Syringe) 12.5 gm PRN Q15MIN PRN IV SEE COMMENTS; Start 01/22/21 at 20:45 Diphenhydramine HCl (Benadryl) 50 mg PRN Q6HRS PRN IVP ITCHING, 1ST CHOICE Last administered on 01/23/21at 18:42; Start 01/23/21 at 03:00 Diphenhydramine HCl (Benadryl) 100 mg PRN Q6HRS PRN IVP ITCHING, 2ND CHOICE; Start 01/23/21 at 03:00 Morphine Sulfate (Morphine Sulfate) 2 mg PRN Q2HR PRN IVP PAIN Last administered on 01/24/21at 17:07; Start 01/23/21 at 03:00 Famotidine (Pepcid Vial) 20 mg BID IVP Last administered on 01/23/21at 20:56; Start 01/23/21 at 07:00 Methylprednisolone Sodium Succinate (SOLU-Medrol 40MG VIAL) 40 mg Q12HR IV Last administered on 01/24/21at 15:00; Start 01/23/21 at 07:00 Daptomycin 640 mg/ Sodium Chloride 50 ml @ 100 mls/hr Q24H IV Last administered on 01/23/21at 11:01; Start 01/23/21 at 10:00; Stop 01/23/21 at 14:59; Status DC Piperacillin Sod/ Tazobactam Sod 3.375 gm/Sodium Chloride 50 ml @ 100 mls/hr Q6HRS IV Last administered on 01/24/21at 17:06; Start 01/23/21 at 10:00 Lactobacillus Rhamnosus (Culturelle) 1 cap BID PO Last administered on 01/24/21at 08:41; Start 01/23/21 at 21:00 Oxycodone/ Acetaminophen (Percocet 5/325) 1 tab PRN Q4HRS PRN PO MODERATE PAIN; Start 01/23/21 at 13:45 Oxycodone/ Acetaminophen (Percocet 5/325) 2 tab PRN Q4HRS PRN PO SEVERE PAIN Last administered on 01/24/21at 14:56; Start 01/23/21 at 13:45 Daptomycin 500 mg/ Sodium Chloride 50 ml @ 100 mls/hr Q24H IV Last administered on 01/24/21at 14:01; Start 01/24/21 at 09:00 Labetalol HCl (Normodyne Iv Push) 10 mg PRN Q15MIN PRN IVP HYPERTENSION; Start 01/24/21 at 00:00 Ziprasidone (Geodon) 20 mg PRN Q2HRS PRN PO ANXIETY / AGITATION Last administered on 01/24/21at 00:18; Start 01/24/21 at 00:00 Hydralazine HCl (Apresoline) 25 mg TID PO Last administered on 01/24/21at 14:59; Start 01/24/21 at 00:30 Insulin Human Lispro (HumaLOG) 5 units 1X ONCE SQ Last administered on 01/24/21at 00:19; Start 01/24/21 at 00:30; Stop 01/24/21 at 00:31; Status DC Ziprasidone (Geodon Im) 10 mg PRN Q2HRS PRN IM AGITATION Last administered on 01/24/21at 06:05; Start 01/24/21 at 00:15 Lidocaine HCl (Buffered Lidocaine 1%) 3 ml STK-MED ONCE .ROUTE ; Start 01/24/21 at 12:11; Stop 01/24/21 at 12:11; Status DC Lidocaine HCl (Buffered Lidocaine 1%) 3 ml STK-MED ONCE .ROUTE ; Start 01/24/21 at 12:21; Stop 01/24/21 at 12:22; Status DC Lidocaine HCl (Buffered Lidocaine 1%) 6 ml 1X ONCE INJ Last administered on 01/24/21at 13:10; Start 01/24/21 at 12:30; Stop 01/24/21 at 12:34; Status DC Gadoterate Meglumine (Clariscan) 20 ml 1X ONCE IVP Last administered on 01/24/21at 15:55; Start 01/24/21 at 15:30; Stop 01/24/21 at 15:31; Status DC Active Scripts Active Colace (Docusate Sodium) 100 Mg Capsule 100 Mg PO BID 60 Days Methocarbamol 750 Mg Tablet 750 Mg PO TID PRN PRN Reported [V-Go 40 Day Kit ] Units SQ Q1HR 5 CLICKS @ MEALS 2 CLICKS @ SNACKS Freestyle Lite Test Strip (Blood Sugar Diagnostic) 1 Each Strip 1 Strip MC DAILY 30 Days Hydrocodone-Apap 7.5-325 (Hydrocodone Bit/Acetaminophen) 1 Tab Tablet 1-2 Tab PO PRN Q4HRS PRN Vascepa (Icosapent Ethyl) 1 Gm Capsule 1 Gm PO BID Zolpidem Tartrate Er (Zolpidem Tartrate) 12.5 Mg Tab.mphase 12.5 Mg PO PRN QHS PRN Probenecid 500 Mg Tablet 500 Mg PO BID Hydrochlorothiazide Capsule (Hydrochlorothiazide) 12.5 Mg Capsule 12.5 Mg PO DAILY Hydralazine Hcl 50 Mg Tablet 1 Tab PO DAILY Uloric (Febuxostat) 80 Mg Tablet 1 Tab PO DAILY 30 Days Clonidine Tts-2 (Clonidine) 1 Each Patch.tdwk 1 Patch TD WEEKLY Bystolic (Nebivolol Hcl) 20 Mg Tablet 20 Mg PO DAILY Aspirin 81 Mg Tab.chew 1 Tab PO DAILY Zetia (Ezetimibe) 10 Mg Tablet 10 Mg PO DAILY Zestril (Lisinopril) 20 Mg Tablet 1 Tab PO DAILY 30 Days Ozempic (Semaglutide) 1 Mg/0.75 Ml Pen.injctr 1 Mg SQ WEEKLY THURSDAY Lipitor (Atorvastatin Calcium) 80 Mg Tablet 1 Tab PO DAILY Jardiance (Empagliflozin) 25 Mg Tablet 25 Mg PO DAILY Vitals/I & O Vital Sign - Last 24 Hours 01/23/21 01/23/21 01/23/21 01/23/21 18:30 19:00 20:23 20:51 Temp 98.0 98.0 Pulse 95 Resp 18 24 B/P (MAP) 161/99 (119) Pulse Ox 96 O2 Delivery Room Air Room Air Room Air Room Air 01/23/21 01/23/21 01/23/21 01/23/21 21:01 21:30 22:34 23:00 Pulse 95 96 Resp 24 24 B/P (MAP) 161/99 180/110 (133) O2 Delivery Room Air Room Air 01/23/21 01/23/21 01/24/21 01/24/21 23:09 23:31 00:18 03:09 Temp 96.8 96.8 Pulse 108 Resp 20 18 B/P (MAP) 189/118 (141) 189/116 164/101 (122) Pulse Ox 96 O2 Delivery Room Air Room Air 01/24/21 01/24/21 01/24/21 01/24/21 07:00 08:15 08:40 08:40 Temp 98.0 98.0 Pulse 110 105 105 Resp 20 B/P (MAP) 189/125 (146) 185/116 185/116 O2 Delivery Room Air Room Air 01/24/21 01/24/21 01/24/21 01/24/21 08:41 11:00 13:49 14:20 Temp 97.5 97.5 Pulse 105 95 Resp 20 B/P (MAP) 185/116 164/99 (120) Pulse Ox 98 O2 Delivery Room Air Room Air Room Air 01/24/21 01/24/21 01/24/21 01/24/21 14:56 14:59 15:00 17:07 Temp 97.7 97.7 Pulse 86 96 Resp 20 B/P (MAP) 181/107 173/103 (126) Pulse Ox 96 O2 Delivery Room Air Room Air Room Air Intake and Output 01/23/21 01/23/21 01/24/21 15:00 23:00 07:00 Intake Total 525 ml 350 ml 150 ml Output Total 200 ml 0 ml Balance 325 ml 350 ml 150 ml Justifications for Admission Other Justification KEISHA CUEVAS [employer] Jan 24, 2021 18:23
[2021-01-24 19:15] VITALS: BP 157/95
[2021-01-24 22:54] VITALS: BP 167/94
[2021-01-25] MEDS: MORPHINE SULFATE 2 MG/ML INJ. IVP PRN ×10 (00:01→22:33)
[2021-01-25] MEDS: PIPERACILLIN/TAZOBACTAM 3.375 GM in IV NORMAL SALINE 50ML 50 ML IV SCH ×2 (00:01→06:16)
[2021-01-25] MEDS: METHOCARBAMOL 750 MG TABLET PO PRN ×2 (01:01→10:10)
[2021-01-25 02:56] VITALS: BP 189/117
[2021-01-25] MEDS: oxyCODONE/APAP 5/325 1 TAB TABLET PO PRN ×4 (03:06→18:34)
[2021-01-25] MEDS: LABETALOL 20 MG/4 ML DISP.SYRIN. IVP PRN ×2 (03:07→08:04)
[2021-01-25 07:35] VITALS: BP 191/121
--- NOTE | 2021-01-25 07:52 | PDOC ---
Infectious Disease Note Subjective Subjective Complaining of severe back pain and medications not helping. Also having very high blood pressure ROS ROS No nausea vomiting diarrhea chest pain shortness of breath headache or fevers Vital Sign Vital Signs Vital Signs Date Time Temp Pulse Resp B/P (MAP) Pulse Ox O2 Delivery O2 Flow Rate FiO2 01/25/21 07:35 98.5 18 191/121 (144) 99 Room Air 98.5 01/25/21 03:07 89 Physical Exam PHYSICAL EXAM GENERAL: Alert, oriented gentleman, not in distress. VITAL SIGNS: Stable. HEENT: Both pupils are round and reacting. No conjunctival lesion. No lesion in the mouth. NECK: Supple. No JVP. No lymphadenopathy. LUNGS: Clear. HEART: S1, S2, regular. ABDOMEN: Soft, nontender. No organomegaly. EXTREMITIES: No edema, cyanosis. SKIN: The patient does have some hives from fentanyl and lip swelling. SPINE: There is incision with drainage present. NEUROLOGIC: The patient is alert, awake and appropriate. No focal neurologic deficit. Labs Lab Laboratory Tests Test 01/24/21 09:00 01/24/21 09:35 01/24/21 12:07 01/24/21 16:32 Urine Opiates Screen Pos (NEG) Urine Methadone Screen Neg (NEG) Urine Barbiturates Neg (NEG) Urine Phencyclidine Screen Neg (NEG) Urine Amphetamine/Methamphetamine Neg (NEG) Urine Benzodiazepines Screen Neg (NEG) Urine Cocaine Screen Neg (NEG) Urine Cannabinoids Screen Neg (NEG) Urine Ethyl Alcohol Neg (NEG) White Blood Count 14.5 x10^3/uL (4.0-11.0) Red Blood Count 5.23 x10^6/uL (4.30-5.70) Hemoglobin 15.3 g/dL (13.0-17.5) Hematocrit 45.5 % (39.0-53.0) Mean Corpuscular Volume 87 fL (79-100) Mean Corpuscular Hemoglobin 29 pg (25-35) Mean Corpuscular Hemoglobin Concent 34 g/dL (31-37) Red Cell Distribution Width 14.6 % (11.5-14.5) Platelet Count 215 x10^3/uL (140-400) Neutrophils (%) (Auto) 92 % (31-73) Lymphocytes (%) (Auto) 5 % (24-48) Monocytes (%) (Auto) 3 % (0-9) Eosinophils (%) (Auto) 0 % (0-3) Basophils (%) (Auto) 0 % (0-3) Neutrophils # (Auto) 13.3 x10^3/uL (1.8-7.7) Lymphocytes # (Auto) 0.8 x10^3/uL (1.0-4.8) Monocytes # (Auto) 0.4 x10^3/uL (0.0-1.1) Eosinophils # (Auto) 0.0 x10^3/uL (0.0-0.7) Basophils # (Auto) 0.0 x10^3/uL (0.0-0.2) Segmented Neutrophils % 89 % (35-66) Band Neutrophils % 2 % (0-9) Lymphocytes % 7 % (24-48) Monocytes % 2 % (0-10) Platelet Estimate Adequate (ADEQUATE) Sodium Level 134 mmol/L (136-145) Potassium Level 4.2 mmol/L (3.5-5.1) Chloride Level 97 mmol/L (98-107) Carbon Dioxide Level 24 mmol/L (21-32) Anion Gap 13 (6-14) Blood Urea Nitrogen 32 mg/dL (8-26) Creatinine 1.6 mg/dL (0.7-1.3) Estimated GFR (Cockcroft-Gault) 45.1 Glucose Level 375 mg/dL (70-99) Calcium Level 8.9 mg/dL (8.5-10.1) Creatine Kinase 58 U/L (39-308) Glucose (Fingerstick) 256 mg/dL (70-99) 221 mg/dL (70-99) Test 01/24/21 20:58 01/25/21 07:23 Glucose (Fingerstick) 403 mg/dL (70-99) 328 mg/dL (70-99) Micro GRAM STAIN Final Final NO ORGANISMS SEEN. SQUAMOUS EPI CELL:RARE PMN (WBCs):RARE Unless otherwise specified, Testing Performed by: [facility] [address] [place] [address] For Inquires, the Physician may contact the Microbiology department at [phone] ANAEROBIC-AEROBIC CULTURE Preliminary Preliminary FEW GRAM POSITIVE COCCI on 01/24/21 at 0822 FINAL ID= [STAPHYLOCOCCUS AUREUS] STAPHYLOCOCCUS AUREUS Unless otherwise specified, Testing Performed by: [address] [address] For Inquires, the Physician may contact the Microbiology department at [phone] Objective Assessment IMPRESSION: 1. Postsurgical spine infection. 2. Status post right-sided hemilaminotomy and microdiscectomy L3-L4 done on 01/09/2021. 3. Diabetes mellitus. 4. Hypertension. 5. Leukocytosis. 6. Renal insufficiency. Plan Plan of Care Continue supportive care blood pressure management and pain control per hospitalist and neurosurgery Continue daptomycin discontinue Zosyn Susceptibility of staph aureus is pending BONNIE SARMIENTO MD Jan 25, 2021 07:52
[2021-01-25] MEDS: hydroCHLOROthiazide 12.5 MG CAPSULE PO SCH (08:01)
[2021-01-25] MEDS: LACTOBACILLUS RHAMNOSUS GG 1 CAPSULE. PO SCH ×2 (08:01→20:09)
[2021-01-25] MEDS: EZETIMIBE 10 MG TABLET. PO SCH (08:01)
[2021-01-25] MEDS: ATORVASTATIN CALCIUM 40 MG TABLET. PO SCH (08:01)
[2021-01-25] MEDS: hydrALAZINE 25 MG TABLET PO SCH (08:01)
[2021-01-25] MEDS: FEBUXOSTAT 40 MG TABLET PO SCH (08:02)
[2021-01-25] MEDS: PROBENECID 500 MG TABLET PO SCH ×2 (08:02→20:08)
[2021-01-25] MEDS: methylPREDNISolone SOD SUCC PF 40 MG/ML VIAL. IV SCH (08:02)
[2021-01-25] MEDS: FAMOTIDINE 20 MG/2 ML VIAL IVP SCH ×2 (08:02→20:10)
[2021-01-25] MEDS: ASPIRIN CHEWABLE 81 MG TABLET. PO SCH (08:02)
[2021-01-25] MEDS: METOPROLOL TART IMMED RELEASE 50 MG TABLET. PO SCH ×2 (08:03→20:09)
[2021-01-25] MEDS: DOCUSATE SODIUM 100 MG CAPSULE. PO SCH ×2 (08:11→21:00)
[2021-01-25] MEDS: INSULIN LISPRO 300 UNITS/3 ML VIAL. SQ SCH ×4 (08:22→17:00)
[2021-01-25] MEDS: DAPTOmycin (GENERIC) IVPB 500 MG in IV NORMAL SALINE 50ML 50 ML IV SCH (10:09)
[2021-01-25] MEDS: ZIPRASIDONE 20 MG CAPSULE PO PRN (10:10)
[2021-01-25] MEDS: INSULIN GLARGINE SYRINGE. SQ SCH ×2 (10:15→21:00)
[2021-01-25 11:00] VITALS: BP 160/100
--- NOTE | 2021-01-25 11:48 | PDOC ---
[employer] PROGRESS NOTE Date of Service DOS: DATE: 01/25/21 TIME: 11:46 Chief Complaint Chief Complaint MICHAEL inhibitor induced angioedema Postoperative wound infection Continue with IV Solu-Medrol twice daily then transition to prednisone taper on 01/25/2021 Appreciate infectious disease recommendations for antibiotic management Pending blood and wound cultures Would avoid MICHAEL inhibitor for now, possible ARB in the future. Pending C4 levels and C1 esterase levels History of Present Illness History of Present Illness 55-year-old male who underwent lumbar hemilaminectomy of the L3-L4 levels on January 09, 2021. He was actually discharged home the following day was doing well. Unfortunately patient had a surgical site complication with infection he was started on Keflex and failed p.o. antibiotics over the weekend. There was increasing pain and serous drainage from incision and he was brought in for further evaluation and IV antibiotics. He was given fentanyl for pain and patient was on lisinopril chronically. Unfortunately patient had angioedema most likely with his use of MICHAEL inhibitors. Infectious diseases consulted for antibiotic management. Patient interviewed bedside and he was doing well. He denies any throat swelling or wheezing or trouble breathing. He does not have any periorbital edema or facial swelling. Only upper portion of his lip is swollen and his tongue is fine. He is speaking in full sentences without any use of his accessory muscles. Denies fevers, confusion, syncope, chest pain, shortness of breath, abdominal pain, diarrhea or hematuria. 01/24/2021 Patient had an acute agitative and confusion episode last night. Patient ripped out the sharps container from the wall. He appears to be close to his baseline today and appears lethargic but talking on the phone. Sitting on the recliner and not agitated at this time. No fevers somewhat tachycardic and no hypotensive episodes. Swelling of his upper lip appears to be improved. No redness or swelling. Patient will likely benefit from a PICC line placement for long-term IV antibiotics. Will defer the timing and course to infectious disease. Patient's chart, labs, images were reviewed and discussed with RN 01/25/2021 No acute events overnight. Patient is ambulating through the hallways back pain . There is clear drainage on the dressings which will need to be switched out. Blood pressures have been uncontrolled with systolic blood pressures from 1 60-1 90. He does have IV antihypertensive medications as needed. I have increased his hydralazine to 50 mg 3 times daily. His sugars have also been greater than 300 and as high as 400. I have added a long-acting Lantus 10 units twice daily and keeping him on regular insulin sliding scale. Patient usually does have an insulin pump in which he had his friend bring. However due to his staff aureus infection I would recommend him not to place the insulin pump at this time and only administer insulin as needed and do subcu injections. I have also decreased his Solu-Medrol to a prednisone taper at 40 mg daily for now. Vitals/I&O Vitals/I&O: Vital Signs Date Time Temp Pulse Resp B/P (MAP) Pulse Ox O2 Delivery O2 Flow Rate FiO2 01/25/21 11:00 98.2 96 18 160/100 (120) 98 Room Air 98.2 I & O 01/24/21 01/24/21 01/25/21 15:00 23:00 07:00 Intake Total 740 ml 360 ml Output Total 600 ml 300 ml Balance 140 ml 60 ml Physical Exam Physical Exam: GENERAL: Alert, oriented gentleman, not in distress. VITAL SIGNS: Stable. HEENT: Both pupils are round and reacting. No conjunctival lesion. No lesion in the mouth. NECK: Supple. No JVP. No lymphadenopathy. LUNGS: Clear. HEART: S1, S2, regular. ABDOMEN: Soft, nontender. No organomegaly. EXTREMITIES: No edema, cyanosis. SKIN: The patient does have some hives from fentanyl and lip swelling. SPINE: There is incision with drainage present. NEUROLOGIC: The patient is alert, awake and appropriate. No focal neurologic deficit. General: Alert, Oriented X3, Cooperative Heart: Regular rate Lungs: Clear Abdomen: Normal bowel sounds Extremities: No clubbing Skin: Other (dressing intact, recently changed per RN) Labs Labs: Laboratory Tests Test 01/24/21 12:07 01/24/21 16:32 01/24/21 20:58 01/25/21 07:23 Glucose (Fingerstick) 256 mg/dL (70-99) 221 mg/dL (70-99) 403 mg/dL (70-99) 328 mg/dL (70-99) Comment Review of Relevant I have reviewed the following items lashaun (where applicable) has been applied. Medications: Current Medications Medications (Trade) Dose Ordered Sig/Zain Route PRN Reason Start Time Stop Time Status Last Admin Dose Admin Lidocaine HCl (Buffered Lidocaine 1%) 6 ml 1X ONCE INJ 01/24/21 12:30 01/24/21 12:34 DC 01/24/21 13:10 Gadoterate Meglumine (Clariscan) 20 ml 1X ONCE IVP 01/24/21 15:30 01/24/21 15:31 DC 01/24/21 15:55 Insulin Human Lispro (HumaLOG) 12 units 1X ONCE SQ 01/24/21 22:00 01/24/21 22:01 DC 01/24/21 22:05 Insulin Glargine (Lantus Syringe) 10 unit BID SQ 01/25/21 11:00 01/25/21 10:15 Justifications for Admission Other Justification BRIANA CHU MD Jan 25, 2021 11:48
--- NOTE | 2021-01-25 12:06 | NUR ---
patient was returned his flashlight.
[2021-01-25 12:48] LABS: BASO % 0 % (0-3); EOS % 0 % (0-3); HEMATOCRIT 48.8 % (39.0-53.0); HEMOGLOBIN 16.1 g/dL (13.0-17.5); LYMPH # 0.7 x10^3/uL (1.0-4.8); LYMPH % 5 % (24-48); MEAN CORPUSCULAR HEMOGLOBIN 29 pg (25-35); MEAN CORPUSCULAR HGB CONC 33 g/dL (31-37); MEAN CORPUSCULAR VOLUME 87 fL (79-100); MONO # 0.5 x10^3/uL (0.0-1.1); MONO % 4 % (0-9); NEUT # 12.8 x10^3/uL (1.8-7.7); NEUT % 91 % (31-73); PLATELET COUNT 289 x10^3/uL (140-400); RED BLOOD COUNT 5.61 x10^6/uL (4.30-5.70); RED CELL DISTRIBUTION WIDTH 14.8 % (11.5-14.5)
[2021-01-25 12:59] LABS: CALCIUM 9.2 mg/dL (8.5-10.1); CREATININE 1.7 mg/dL (0.7-1.3); GFR 42.1; POTASSIUM 4.6 mmol/L (3.5-5.1)
--- NOTE | 2021-01-25 14:13 | PDOC ---
PROGRESS NOTES Date of Service DATE: 01/25/21 TIME: 14:10 Subjective Subjective up in chair continued back pain blood sugars remain elevated, blood pressure elevated Objective Objective Vital Signs Date Time Temp Pulse Resp B/P (MAP) Pulse Ox O2 Delivery O2 Flow Rate FiO2 01/25/21 12:53 Room Air 01/25/21 11:00 98.2 96 18 160/100 (120) 98 98.2 Intake and Output 01/25/21 07:00 Intake Total 1100 ml Output Total 900 ml Balance 200 ml Intake Oral 1100 ml Output Urine Total 900 ml # Voids 1 Physical Exam General: Alert, Oriented X3, Cooperative, Other (Facial swelling resolved) MUSCULOSKELETAL: Other (KEYES) Neuro: Normal speech Skin: Other (dressing intact, has been recently changed per RN) Plan Plan of Care Changes have been made to insulin and BP medication encouraged activity as tolerated IV antibiotics per ID Comment Review of Relevant I have reviewed the following items lashaun (where applicable) has been applied. Labs Laboratory Tests Test 01/24/21 09:00 01/24/21 09:35 01/24/21 12:07 01/24/21 16:32 Urine Opiates Screen Pos (NEG) Urine Methadone Screen Neg (NEG) Urine Barbiturates Neg (NEG) Urine Phencyclidine Screen Neg (NEG) Urine Amphetamine/Methamphetamine Neg (NEG) Urine Benzodiazepines Screen Neg (NEG) Urine Cocaine Screen Neg (NEG) Urine Cannabinoids Screen Neg (NEG) Urine Ethyl Alcohol Neg (NEG) White Blood Count 14.5 x10^3/uL (4.0-11.0) Red Blood Count 5.23 x10^6/uL (4.30-5.70) Hemoglobin 15.3 g/dL (13.0-17.5) Hematocrit 45.5 % (39.0-53.0) Mean Corpuscular Volume 87 fL (79-100) Mean Corpuscular Hemoglobin 29 pg (25-35) Mean Corpuscular Hemoglobin Concent 34 g/dL (31-37) Red Cell Distribution Width 14.6 % (11.5-14.5) Platelet Count 215 x10^3/uL (140-400) Neutrophils (%) (Auto) 92 % (31-73) Lymphocytes (%) (Auto) 5 % (24-48) Monocytes (%) (Auto) 3 % (0-9) Eosinophils (%) (Auto) 0 % (0-3) Basophils (%) (Auto) 0 % (0-3) Neutrophils # (Auto) 13.3 x10^3/uL (1.8-7.7) Lymphocytes # (Auto) 0.8 x10^3/uL (1.0-4.8) Monocytes # (Auto) 0.4 x10^3/uL (0.0-1.1) Eosinophils # (Auto) 0.0 x10^3/uL (0.0-0.7) Basophils # (Auto) 0.0 x10^3/uL (0.0-0.2) Segmented Neutrophils % 89 % (35-66) Band Neutrophils % 2 % (0-9) Lymphocytes % 7 % (24-48) Monocytes % 2 % (0-10) Platelet Estimate Adequate (ADEQUATE) Sodium Level 134 mmol/L (136-145) Potassium Level 4.2 mmol/L (3.5-5.1) Chloride Level 97 mmol/L (98-107) Carbon Dioxide Level 24 mmol/L (21-32) Anion Gap 13 (6-14) Blood Urea Nitrogen 32 mg/dL (8-26) Creatinine 1.6 mg/dL (0.7-1.3) Estimated GFR (Cockcroft-Gault) 45.1 Glucose Level 375 mg/dL (70-99) Calcium Level 8.9 mg/dL (8.5-10.1) Creatine Kinase 58 U/L (39-308) Glucose (Fingerstick) 256 mg/dL (70-99) 221 mg/dL (70-99) Test 01/24/21 20:58 01/25/21 07:23 01/25/21 12:03 01/25/21 12:35 Glucose (Fingerstick) 403 mg/dL (70-99) 328 mg/dL (70-99) 387 mg/dL (70-99) White Blood Count 14.0 x10^3/uL (4.0-11.0) Red Blood Count 5.61 x10^6/uL (4.30-5.70) Hemoglobin 16.1 g/dL (13.0-17.5) Hematocrit 48.8 % (39.0-53.0) Mean Corpuscular Volume 87 fL (79-100) Mean Corpuscular Hemoglobin 29 pg (25-35) Mean Corpuscular Hemoglobin Concent 33 g/dL (31-37) Red Cell Distribution Width 14.8 % (11.5-14.5) Platelet Count 289 x10^3/uL (140-400) Neutrophils (%) (Auto) 91 % (31-73) Lymphocytes (%) (Auto) 5 % (24-48) Monocytes (%) (Auto) 4 % (0-9) Eosinophils (%) (Auto) 0 % (0-3) Basophils (%) (Auto) 0 % (0-3) Neutrophils # (Auto) 12.8 x10^3/uL (1.8-7.7) Lymphocytes # (Auto) 0.7 x10^3/uL (1.0-4.8) Monocytes # (Auto) 0.5 x10^3/uL (0.0-1.1) Eosinophils # (Auto) 0.0 x10^3/uL (0.0-0.7) Basophils # (Auto) 0.0 x10^3/uL (0.0-0.2) Sodium Level 134 mmol/L (136-145) Potassium Level 4.6 mmol/L (3.5-5.1) Chloride Level 96 mmol/L (98-107) Carbon Dioxide Level 26 mmol/L (21-32) Anion Gap 12 (6-14) Blood Urea Nitrogen 32 mg/dL (8-26) Creatinine 1.7 mg/dL (0.7-1.3) Estimated GFR (Cockcroft-Gault) 42.1 Glucose Level 374 mg/dL (70-99) Calcium Level 9.2 mg/dL (8.5-10.1) Laboratory Tests Test 01/24/21 16:32 01/24/21 20:58 01/25/21 07:23 01/25/21 12:03 Glucose (Fingerstick) 221 mg/dL (70-99) 403 mg/dL (70-99) 328 mg/dL (70-99) 387 mg/dL (70-99) Test 01/25/21 12:35 White Blood Count 14.0 x10^3/uL (4.0-11.0) Red Blood Count 5.61 x10^6/uL (4.30-5.70) Hemoglobin 16.1 g/dL (13.0-17.5) Hematocrit 48.8 % (39.0-53.0) Mean Corpuscular Volume 87 fL (79-100) Mean Corpuscular Hemoglobin 29 pg (25-35) Mean Corpuscular Hemoglobin Concent 33 g/dL (31-37) Red Cell Distribution Width 14.8 % (11.5-14.5) Platelet Count 289 x10^3/uL (140-400) Neutrophils (%) (Auto) 91 % (31-73) Lymphocytes (%) (Auto) 5 % (24-48) Monocytes (%) (Auto) 4 % (0-9) Eosinophils (%) (Auto) 0 % (0-3) Basophils (%) (Auto) 0 % (0-3) Neutrophils # (Auto) 12.8 x10^3/uL (1.8-7.7) Lymphocytes # (Auto) 0.7 x10^3/uL (1.0-4.8) Monocytes # (Auto) 0.5 x10^3/uL (0.0-1.1) Eosinophils # (Auto) 0.0 x10^3/uL (0.0-0.7) Basophils # (Auto) 0.0 x10^3/uL (0.0-0.2) Sodium Level 134 mmol/L (136-145) Potassium Level 4.6 mmol/L (3.5-5.1) Chloride Level 96 mmol/L (98-107) Carbon Dioxide Level 26 mmol/L (21-32) Anion Gap 12 (6-14) Blood Urea Nitrogen 32 mg/dL (8-26) Creatinine 1.7 mg/dL (0.7-1.3) Estimated GFR (Cockcroft-Gault) 42.1 Glucose Level 374 mg/dL (70-99) Calcium Level 9.2 mg/dL (8.5-10.1) Microbiology 01/22/21 Gram Stain - Final, Resulted 01/22/21 Aerobic and Anaerobic Culture - Preliminary, Resulted 01/22/21 Antimicrobic Susceptibility - Preliminary, Resulted Medications Current Medications Fentanyl Citrate (Fentanyl 2ml Vial) 50 mcg PRN Q2HR PRN IVP PAIN Last administered on 01/23/21at 02:11; Start 01/22/21 at 16:00; Stop 01/23/21 at 03:01; Status DC Aspirin (Aspirin Chewable) 81 mg DAILY PO Last administered on 01/25/21at 08 :02; Start 01/23/21 at 09:00 Clonidine HCl (Catapres Tts-2) 1 patch WEEKLY TD Last administered on 01/22/21at 16:26; Start 01/22/21 at 17:00 Docusate Sodium (Colace) 100 mg BID PO Last administered on 01/24/21at 20:43; Start 01/22/21 at 21:00 EZETIMIBE (Zetia) 10 mg DAILY PO Last administered on 01/25/21at 08:01; Start 01/23/21 at 09:00 Hydralazine HCl (Apresoline) 50 mg DAILY PO Last administered on 01/24/21at 08:41; Start 01/23/21 at 09:00; Stop 01/24/21 at 14:47; Status DC Hydrochlorothiazide (Microzide) 12.5 mg DAILY PO Last administered on 01/25/21at 08:01; Start 01/23/21 at 09:00 Acetaminophen/ Hydrocodone Bitart (Lortab 7.5/325) 2 tab PRN Q4HRS PRN PO PAIN Last administered on 01/23/21at 10:25; Start 01/22/21 at 16:00; Stop 01/23/21 at 13:34; Status DC Lisinopril (Prinivil) 20 mg DAILY PO ; Start 01/23/21 at 09:00; Stop 01/23/21 at 06:31; Status DC Methocarbamol (Robaxin) 750 mg TID PRN PRN PO MUSCLE SPASMS Last administered on 01/25/21at 10:10; Start 01/22/21 at 16:00 Atorvastatin Calcium (Lipitor) 80 mg DAILY PO Last administered on 01/25/21at 08:01; Start 01/23/21 at 09:00 Non-Formulary Medication (Empagliflozin (Jardiance)) 25 mg DAILY PO ; Start 01/23/21 at 09:00; Stop 01/23/21 at 18:17; Status DC Febuxostat (Uloric) 80 mg DAILY PO Last administered on 01/25/21at 08:02; Start 01/23/21 at 09:00 Non-Formulary Medication (Icosapent Ethyl (Vascepa)) 1 gm BID PO ; Start 01/22/21 at 21:00; Stop 01/23/21 at 18:18; Status DC Metoprolol Tartrate (Lopressor) 50 mg BID PO Last administered on 01/25/21at 08:03; Start 01/22/21 at 21:00 Probenecid (Benemid) 500 mg BID PO Last administered on 01/25/21at 08:02; Start 01/22/21 at 21:00 Non-Formulary Medication (Semaglutide (Ozempic)) 1 mg WEEKLY SQ ; Start 01/29/21 at 09:00; Status UNV Zolpidem Tartrate (Ambien) 5 mg PRN QHS PRN PO INSOMNIA, MAY REPEAT X1 Last administered on 01/23/21at 21:00; Start 01/22/21 at 16:15 Insulin Human Lispro (HumaLOG) 0-9 UNITS TIDWMEALS SQ Last administered on 01/25/21at 12:34; Start 01/22/21 at 00:00 Dextrose (Dextrose 50%-Water Syringe) 12.5 gm PRN Q15MIN PRN IV SEE COMMENTS; Start 01/22/21 at 20:45 Diphenhydramine HCl (Benadryl) 50 mg PRN Q6HRS PRN IVP ITCHING, 1ST CHOICE Last administered on 01/23/21at 18:42; Start 01/23/21 at 03:00 Diphenhydramine HCl (Benadryl) 100 mg PRN Q6HRS PRN IVP ITCHING, 2ND CHOICE; Start 01/23/21 at 03:00 Morphine Sulfate (Morphine Sulfate) 2 mg PRN Q2HR PRN IVP PAIN Last administered on 01/25/21at 12:23; Start 01/23/21 at 03:00 Famotidine (Pepcid Vial) 20 mg BID IVP Last administered on 01/25/21at 08:02; Start 01/23/21 at 07:00 Methylprednisolone Sodium Succinate (SOLU-Medrol 40MG VIAL) 40 mg Q12HR IV Last administered on 01/25/21at 08:02; Start 01/23/21 at 07:00; Stop 01/25/21 at 09:43; Status DC Daptomycin 640 mg/ Sodium Chloride 50 ml @ 100 mls/hr Q24H IV Last administered on 01/23/21at 11:01; Start 01/23/21 at 10:00; Stop 01/23/21 at 14:59; Status DC Piperacillin Sod/ Tazobactam Sod 3.375 gm/Sodium Chloride 50 ml @ 100 mls/hr Q6HRS IV Last administered on 01/25/21at 06:16; Start 01/23/21 at 10:00; Stop 01/25/21 at 08:23; Status DC Lactobacillus Rhamnosus (Culturelle) 1 cap BID PO Last administered on 01/25/21at 08:01; Start 01/23/21 at 21:00 Oxycodone/ Acetaminophen (Percocet 5/325) 1 tab PRN Q4HRS PRN PO MODERATE PAIN; Start 01/23/21 at 13:45 Oxycodone/ Acetaminophen (Percocet 5/325) 2 tab PRN Q4HRS PRN PO SEVERE PAIN Last administered on 01/25/21at 08:01; Start 01/23/21 at 13:45 Daptomycin 500 mg/ Sodium Chloride 50 ml @ 100 mls/hr Q24H IV Last administered on 01/25/21at 10:09; Start 01/24/21 at 09:00 Labetalol HCl (Normodyne Iv Push) 10 mg PRN Q15MIN PRN IVP HYPERTENSION Last administered on 01/25/21at 08:04; Start 01/24/21 at 00:00 Ziprasidone (Geodon) 20 mg PRN Q2HRS PRN PO ANXIETY / AGITATION Last administered on 01/25/21at 10:10; Start 01/24/21 at 00:00 Hydralazine HCl (Apresoline) 25 mg TID PO Last administered on 01/25/21at 08:01; Start 01/24/21 at 00:30; Stop 01/25/21 at 09:37; Status DC Insulin Human Lispro (HumaLOG) 5 units 1X ONCE SQ Last administered on 01/24/21at 00:19; Start 01/24/21 at 00:30; Stop 01/24/21 at 00:31; Status DC Ziprasidone (Geodon Im) 10 mg PRN Q2HRS PRN IM AGITATION Last administered on 01/24/21at 06:05; Start 01/24/21 at 00:15 Lidocaine HCl (Buffered Lidocaine 1%) 3 ml STK-MED ONCE .ROUTE ; Start 01/24/21 at 12:11; Stop 01/24/21 at 12:11; Status DC Lidocaine HCl (Buffered Lidocaine 1%) 3 ml STK-MED ONCE .ROUTE ; Start 01/24/21 at 12:21; Stop 01/24/21 at 12:22; Status DC Lidocaine HCl (Buffered Lidocaine 1%) 6 ml 1X ONCE INJ Last administered on 01/24/21at 13:10; Start 01/24/21 at 12:30; Stop 01/24/21 at 12:34; Status DC Gadoterate Meglumine (Clariscan) 20 ml 1X ONCE IVP Last administered on 01/24/21at 15:55; Start 01/24/21 at 15:30; Stop 01/24/21 at 15:31; Status DC Insulin Human Lispro (HumaLOG) 12 units 1X ONCE SQ Last administered on 01/24/21at 22:05; Start 01/24/21 at 22:00; Stop 01/24/21 at 22:01; Status DC Hydralazine HCl (Apresoline) 50 mg TID PO ; Start 01/25/21 at 14:00 Insulin Glargine (Lantus Syringe) 10 unit BID SQ Last administered on 01/25/21at 10:15; Start 01/25/21 at 11:00 Prednisone (Prednisone) 40 mg DAILY PO ; Start 01/26/21 at 09:00 Insulin Human Lispro (HumaLOG) 5 units TIDWMEALS SQ ; Start 01/25/21 at 17:00 Active Scripts Active Colace (Docusate Sodium) 100 Mg Capsule 100 Mg PO BID 60 Days Methocarbamol 750 Mg Tablet 750 Mg PO TID PRN PRN Reported [V-Go 40 Day Kit ] Units SQ Q1HR 5 CLICKS @ MEALS 2 CLICKS @ SNACKS Freestyle Lite Test Strip (Blood Sugar Diagnostic) 1 Each Strip 1 Strip MC DAILY 30 Days Hydrocodone-Apap 7.5-325 (Hydrocodone Bit/Acetaminophen) 1 Tab Tablet 1-2 Tab PO PRN Q4HRS PRN Vascepa (Icosapent Ethyl) 1 Gm Capsule 1 Gm PO BID Zolpidem Tartrate Er (Zolpidem Tartrate) 12.5 Mg Tab.mphase 12.5 Mg PO PRN QHS PRN Probenecid 500 Mg Tablet 500 Mg PO BID Hydrochlorothiazide Capsule (Hydrochlorothiazide) 12.5 Mg Capsule 12.5 Mg PO DAILY Hydralazine Hcl 50 Mg Tablet 1 Tab PO DAILY Uloric (Febuxostat) 80 Mg Tablet 1 Tab PO DAILY 30 Days Clonidine Tts-2 (Clonidine) 1 Each Patch.tdwk 1 Patch TD WEEKLY Bystolic (Nebivolol Hcl) 20 Mg Tablet 20 Mg PO DAILY Aspirin 81 Mg Tab.chew 1 Tab PO DAILY Zetia (Ezetimibe) 10 Mg Tablet 10 Mg PO DAILY Zestril (Lisinopril) 20 Mg Tablet 1 Tab PO DAILY 30 Days Ozempic (Semaglutide) 1 Mg/0.75 Ml Pen.injctr 1 Mg SQ WEEKLY THURSDAY Lipitor (Atorvastatin Calcium) 80 Mg Tablet 1 Tab PO DAILY Jardiance (Empagliflozin) 25 Mg Tablet 25 Mg PO DAILY Vitals/I & O Vital Sign - Last 24 Hours 01/24/21 01/24/21 01/24/21 01/24/21 14:20 14:56 14:59 15:00 Temp 97.7 97.7 Pulse 86 96 Resp 20 B/P (MAP) 181/107 173/103 (126) Pulse Ox 96 O2 Delivery Room Air Room Air Room Air 01/24/21 01/24/21 01/24/21 01/24/21 17:07 17:40 18:48 19:15 Temp 97.9 97.9 Pulse 96 Resp 20 B/P (MAP) 157/95 (115) Pulse Ox 96 O2 Delivery Room Air Room Air Room Air Room Air 01/24/21 01/24/21 01/24/21 01/24/21 19:18 19:35 20:02 20:32 Resp 20 20 20 O2 Delivery Room Air Room Air Room Air Room Air 01/24/21 01/24/21 01/24/21 01/24/21 20:41 20:42 22:02 22:32 Pulse 96 96 Resp 20 20 B/P (MAP) 157/95 157/95 O2 Delivery Room Air Room Air 01/24/21 01/24/21 01/24/21 01/25/21 22:54 23:08 23:38 00:01 Temp 98.5 98.5 Pulse 92 Resp 18 20 20 20 B/P (MAP) 167/94 (118) Pulse Ox 94 O2 Delivery Room Air Room Air Room Air Room Air 01/25/21 01/25/21 01/25/21 01/25/21 00:31 02:01 02:31 02:56 Temp 97.7 97.7 Pulse 89 Resp 20 20 20 18 B/P (MAP) 189/117 (141) Pulse Ox 95 O2 Delivery Room Air Room Air Room Air Room Air 01/25/21 01/25/21 01/25/21 01/25/21 03:06 03:07 03:36 04:13 Pulse 89 Resp 20 20 20 B/P (MAP) 189/117 O2 Delivery Room Air Room Air Room Air 01/25/21 01/25/21 01/25/21 01/25/21 04:43 06:17 06:47 07:35 Temp 98.5 98.5 Resp 20 20 20 18 B/P (MAP) 191/121 (144) Pulse Ox 99 O2 Delivery Room Air Room Air Room Air Room Air 01/25/21 01/25/21 01/25/21 01/25/21 08:01 08:01 08:03 08:04 Pulse 89 89 89 B/P (MAP) 191/121 191/121 191/121 O2 Delivery Room Air 01/25/21 01/25/21 01/25/21 01/25/21 08:15 08:31 08:45 10:10 O2 Delivery Room Air Room Air Room Air Room Air 01/25/21 01/25/21 01/25/21 01/25/21 10:40 11:00 12:23 12:53 Temp 98.2 98.2 Pulse 96 Resp 18 B/P (MAP) 160/100 (120) Pulse Ox 98 O2 Delivery Room Air Room Air Room Air Room Air Intake and Output 01/24/21 01/24/21 01/25/21 15:00 23:00 07:00 Intake Total 740 ml 360 ml Output Total 600 ml 300 ml Balance 140 ml 60 ml Justifications for Admission Other Justification KEISHA CUEVAS [employer] Jan 25, 2021 14:13
[2021-01-25 15:00] VITALS: BP 158/92
--- NOTE | 2021-01-25 17:30 | NUR ---
Care assumed of patient, report received from Shannan MARSH
--- NOTE | 2021-01-25 17:54 | NUR ---
Pt blood sugar 390, Dr Wheat called and verbally ordered 20 units total of humalog SQ with dinner. Orders put in per telephone.
[2021-01-25] MEDS ORDERED: INSULIN LISPRO 300 UNITS/3 ML VIAL. SQ ONE (18:00)
[2021-01-25 19:00] VITALS: BP 210/132
[2021-01-25 23:00] VITALS: BP 169/97
[2021-01-26] MEDS: oxyCODONE/APAP 5/325 1 TAB TABLET PO PRN ×4 (06:09→21:50)
[2021-01-26 07:00] VITALS: BP 179/119
[2021-01-26] MEDS: INSULIN LISPRO 300 UNITS/3 ML VIAL. SQ SCH ×6 (08:21→17:26)
[2021-01-26] MEDS: MORPHINE SULFATE 2 MG/ML INJ. IVP PRN ×2 (08:30→15:57)
[2021-01-26] MEDS: DOCUSATE SODIUM 100 MG CAPSULE. PO SCH ×2 (08:30→21:48)
[2021-01-26] MEDS: FAMOTIDINE 20 MG/2 ML VIAL IVP SCH ×2 (08:30→21:49)
[2021-01-26] MEDS: FEBUXOSTAT 40 MG TABLET PO SCH (08:31)
[2021-01-26] MEDS: hydroCHLOROthiazide 12.5 MG CAPSULE PO SCH (08:31)
[2021-01-26] MEDS: ATORVASTATIN CALCIUM 40 MG TABLET. PO SCH (08:31)
[2021-01-26] MEDS: LACTOBACILLUS RHAMNOSUS GG 1 CAPSULE. PO SCH ×2 (08:31→21:50)
[2021-01-26] MEDS: EZETIMIBE 10 MG TABLET. PO SCH (08:31)
[2021-01-26] MEDS: ASPIRIN CHEWABLE 81 MG TABLET. PO SCH (08:32)
[2021-01-26] MEDS: METOPROLOL TART IMMED RELEASE 50 MG TABLET. PO SCH ×2 (08:32→21:50)
[2021-01-26] MEDS: PROBENECID 500 MG TABLET PO SCH ×2 (08:32→21:51)
[2021-01-26 08:47] LABS: BASO # 0.1 x10^3/uL (0.0-0.2); BASO % 1 % (0-3); EOS % 0 % (0-3); HEMATOCRIT 52.1 % (39.0-53.0); HEMOGLOBIN 17.5 g/dL (13.0-17.5); LYMPH # 1.5 x10^3/uL (1.0-4.8); LYMPH % 14 % (24-48); MEAN CORPUSCULAR HEMOGLOBIN 30 pg (25-35); MEAN CORPUSCULAR HGB CONC 34 g/dL (31-37); MEAN CORPUSCULAR VOLUME 88 fL (79-100); MONO # 0.8 x10^3/uL (0.0-1.1); MONO % 8 % (0-9); NEUT # 8.1 x10^3/uL (1.8-7.7); NEUT % 77 % (31-73); PLATELET COUNT 245 x10^3/uL (140-400); RED BLOOD COUNT 5.91 x10^6/uL (4.30-5.70); RED CELL DISTRIBUTION WIDTH 14.7 % (11.5-14.5); WHITE BLOOD COUNT 10.4 x10^3/uL (4.0-11.0)
[2021-01-26 08:59] LABS: CALCIUM 9.2 mg/dL (8.5-10.1); CREATININE 1.4 mg/dL (0.7-1.3); GFR 52.6; POTASSIUM 3.9 mmol/L (3.5-5.1)
[2021-01-26] MEDS ORDERED: predniSONE 20 MG TABLET PO SCH (09:00)
[2021-01-26] MEDS: DAPTOmycin (GENERIC) IVPB 500 MG in IV NORMAL SALINE 50ML 50 ML IV SCH (09:03)
[2021-01-26] MEDS: INSULIN GLARGINE SYRINGE. SQ SCH ×2 (09:09→23:06)
[2021-01-26 11:00] VITALS: BP 143/90
--- NOTE | 2021-01-26 11:33 | PDOC ---
Infectious Disease Note Subjective Subjective Continues to have significant back pain ROS ROS No nausea vomiting diarrhea or fever Vital Sign Vital Signs Vital Signs Date Time Temp Pulse Resp B/P (MAP) Pulse Ox O2 Delivery O2 Flow Rate FiO2 01/26/21 11:00 98.0 83 16 143/90 (107) 96 Room Air 98.0 Physical Exam PHYSICAL EXAM GENERAL: Alert, oriented gentleman, not in distress. VITAL SIGNS: Stable. HEENT: Both pupils are round and reacting. No conjunctival lesion. No lesion in the mouth. NECK: Supple. No JVP. No lymphadenopathy. LUNGS: Clear. HEART: S1, S2, regular. ABDOMEN: Soft, nontender. No organomegaly. EXTREMITIES: No edema, cyanosis. SKIN: The patient does have some hives from fentanyl and lip swelling. SPINE: There is incision with drainage present. NEUROLOGIC: The patient is alert, awake and appropriate. No focal neurologic deficit. Labs Lab Laboratory Tests Test 01/25/21 12:03 01/25/21 12:35 01/25/21 17:30 01/25/21 20:26 Glucose (Fingerstick) 387 mg/dL (70-99) 390 mg/dL (70-99) 420 mg/dL (70-99) White Blood Count 14.0 x10^3/uL (4.0-11.0) Red Blood Count 5.61 x10^6/uL (4.30-5.70) Hemoglobin 16.1 g/dL (13.0-17.5) Hematocrit 48.8 % (39.0-53.0) Mean Corpuscular Volume 87 fL (79-100) Mean Corpuscular Hemoglobin 29 pg (25-35) Mean Corpuscular Hemoglobin Concent 33 g/dL (31-37) Red Cell Distribution Width 14.8 % (11.5-14.5) Platelet Count 289 x10^3/uL (140-400) Neutrophils (%) (Auto) 91 % (31-73) Lymphocytes (%) (Auto) 5 % (24-48) Monocytes (%) (Auto) 4 % (0-9) Eosinophils (%) (Auto) 0 % (0-3) Basophils (%) (Auto) 0 % (0-3) Neutrophils # (Auto) 12.8 x10^3/uL (1.8-7.7) Lymphocytes # (Auto) 0.7 x10^3/uL (1.0-4.8) Monocytes # (Auto) 0.5 x10^3/uL (0.0-1.1) Eosinophils # (Auto) 0.0 x10^3/uL (0.0-0.7) Basophils # (Auto) 0.0 x10^3/uL (0.0-0.2) Sodium Level 134 mmol/L (136-145) Potassium Level 4.6 mmol/L (3.5-5.1) Chloride Level 96 mmol/L (98-107) Carbon Dioxide Level 26 mmol/L (21-32) Anion Gap 12 (6-14) Blood Urea Nitrogen 32 mg/dL (8-26) Creatinine 1.7 mg/dL (0.7-1.3) Estimated GFR (Cockcroft-Gault) 42.1 Glucose Level 374 mg/dL (70-99) Calcium Level 9.2 mg/dL (8.5-10.1) Test 01/26/21 01:55 01/26/21 07:41 01/26/21 08:30 Glucose (Fingerstick) 356 mg/dL (70-99) 305 mg/dL (70-99) White Blood Count 10.4 x10^3/uL (4.0-11.0) Red Blood Count 5.91 x10^6/uL (4.30-5.70) Hemoglobin 17.5 g/dL (13.0-17.5) Hematocrit 52.1 % (39.0-53.0) Mean Corpuscular Volume 88 fL (79-100) Mean Corpuscular Hemoglobin 30 pg (25-35) Mean Corpuscular Hemoglobin Concent 34 g/dL (31-37) Red Cell Distribution Width 14.7 % (11.5-14.5) Platelet Count 245 x10^3/uL (140-400) Neutrophils (%) (Auto) 77 % (31-73) Lymphocytes (%) (Auto) 14 % (24-48) Monocytes (%) (Auto) 8 % (0-9) Eosinophils (%) (Auto) 0 % (0-3) Basophils (%) (Auto) 1 % (0-3) Neutrophils # (Auto) 8.1 x10^3/uL (1.8-7.7) Lymphocytes # (Auto) 1.5 x10^3/uL (1.0-4.8) Monocytes # (Auto) 0.8 x10^3/uL (0.0-1.1) Eosinophils # (Auto) 0.0 x10^3/uL (0.0-0.7) Basophils # (Auto) 0.1 x10^3/uL (0.0-0.2) Sodium Level 137 mmol/L (136-145) Potassium Level 3.9 mmol/L (3.5-5.1) Chloride Level 96 mmol/L (98-107) Carbon Dioxide Level 32 mmol/L (21-32) Anion Gap 9 (6-14) Blood Urea Nitrogen 30 mg/dL (8-26) Creatinine 1.4 mg/dL (0.7-1.3) Estimated GFR (Cockcroft-Gault) 52.6 Glucose Level 283 mg/dL (70-99) Calcium Level 9.2 mg/dL (8.5-10.1) Micro GRAM STAIN Final Final NO ORGANISMS SEEN. SQUAMOUS EPI CELL:RARE PMN (WBCs):RARE Unless otherwise specified, Testing Performed by: [address] [id number] For Inquires, the Physician may contact the Microbiology department at [phone] ANAEROBIC-AEROBIC CULTURE Preliminary Preliminary FEW GRAM POSITIVE COCCI on 01/24/21 at 0822 FINAL ID= [STAPHYLOCOCCUS AUREUS] STAPHYLOCOCCUS AUREUS ANTIMICROBIAL SUSCEPTIBILITY Preliminary Comment POS LILIA TYPE 38 STAPHYLOCOCCUS AUREUS ANTIBIOTIC RESULT INTERPRETATION AZITHROMYCIN >4 R CLINDAMYCIN <=0.25 S CEFOXITIN SCREEN <=4 NEG CIPROFLOXACIN <=1 S CEFTAROLINE <=0.5 S DAPTOMYCIN <=0.5 S ERYTHROMYCIN >4 R GENTAMICIN <=4 S INDUCIBLE CLINDAMYCIN <=4/0.5 NEG LINEZOLID 2 S LEVOFLOXACIN <=1 S OXACILLIN <=0.25 S PENICILLIN >2 Phillip RIFAMPIN <=1 S TRIMETHOPRIM/SULFAMETHOXAZOLE <=0.5/9.5 S RUN DATE: 01/25/21 [facility] *LIVE* PAGE 2 RUN TIME: 0854 Specimen Inquiry SPEC: [id number] PATIENT: CORA CERRATO [id number] (Continued) Procedure Result CONTINUED ON NEXT PAGE RUN DATE: 01/25/21 [facility] *LIVE* PAGE 3 RUN TIME: 0854 Specimen Inquiry SPEC: [id number] PATIENT: CORA CERRATO Jason [id number] (Continued) Procedure Result ANTIMICROBIAL SUSCEPTIBILITY Preliminary (continued) TETRACYCLINE 8 I VANCOMYCIN 1 S Unless otherwise specified, Testing Performed by: [address] [id number] For Inquires, the Physician may contact the Microbiology department at [phone] Objective Assessment IMPRESSION: 1. Postsurgical spine infection. MSSA 2. Status post right-sided hemilaminotomy and microdiscectomy L3-L4 done on 01/09/2021. 3. Diabetes mellitus. 4. Hypertension. 5. Leukocytosis. 6. Renal insufficiency. Plan Plan of Care Continue supportive care blood pressure management and pain control per hospitalist and neurosurgery Change daptomycin to cefazolin Patient will need IV antibiotics to go home whenever pain is under control BONNIE SARMIENTO MD Jan 26, 2021 11:33
--- NOTE | 2021-01-26 11:57 | PDOC ---
[facility] PROGRESS NOTE Date of Service DOS: DATE: 01/26/21 TIME: 11:56 Chief Complaint Chief Complaint MICHAEL inhibitor induced angioedema Postoperative wound infection Continue with IV Solu-Medrol twice daily then transition to prednisone taper on 01/25/2021 Appreciate infectious disease recommendations for antibiotic management Pending blood and wound cultures Would avoid MICHAEL inhibitor for now, possible ARB in the future. Pending C4 levels and C1 esterase levels History of Present Illness History of Present Illness 55-year-old male who underwent lumbar hemilaminectomy of the L3-L4 levels on January 09, 2021. He was actually discharged home the following day was doing well. Unfortunately patient had a surgical site complication with infection he was started on Keflex and failed p.o. antibiotics over the weekend. There was increasing pain and serous drainage from incision and he was brought in for further evaluation and IV antibiotics. He was given fentanyl for pain and patient was on lisinopril chronically. Unfortunately patient had angioedema most likely with his use of MICHAEL inhibitors. Infectious diseases consulted for antibiotic management. Patient interviewed bedside and he was doing well. He denies any throat swelling or wheezing or trouble breathing. He does not have any periorbital edema or facial swelling. Only upper portion of his lip is swollen and his tongue is fine. He is speaking in full sentences without any use of his accessory muscles. Denies fevers, confusion, syncope, chest pain, shortness of breath, abdominal pain, diarrhea or hematuria. 01/24/2021 Patient had an acute agitative and confusion episode last night. Patient ripped out the sharps container from the wall. He appears to be close to his baseline today and appears lethargic but talking on the phone. Sitting on the recliner and not agitated at this time. No fevers somewhat tachycardic and no hypotensive episodes. Swelling of his upper lip appears to be improved. No redness or swelling. Patient will likely benefit from a PICC line placement for long-term IV antibiotics. Will defer the timing and course to infectious disease. Patient's chart, labs, images were reviewed and discussed with RN 01/25/2021 No acute events overnight. Patient is ambulating through the hallways back pain . There is clear drainage on the dressings which will need to be switched out. Blood pressures have been uncontrolled with systolic blood pressures from 1 60-1 90. He does have IV antihypertensive medications as needed. I have increased his hydralazine to 50 mg 3 times daily. His sugars have also been greater than 300 and as high as 400. I have added a long-acting Lantus 10 units twice daily and keeping him on regular insulin sliding scale. Patient usually does have an insulin pump in which he had his friend bring. However due to his staff aureus infection I would recommend him not to place the insulin pump at this time and only administer insulin as needed and do subcu injections. I have also decreased his Solu-Medrol to a prednisone taper at 40 mg daily for now. 01/26/2021 No acute events overnight. Patient seen and examined bedside. Resting comfortably. Appears pain is well controlled. Blood pressures have improved. Will decrease his prednisone to 20 mg daily. Continue his 5 units 3 times daily with meals of lispro and long-acting glargine 10 units twice daily with sliding scale high intensity. Patient's chart, labs, images were reviewed and discussed with RN Vitals/I&O Vitals/I&O: Vital Signs Date Time Temp Pulse Resp B/P (MAP) Pulse Ox O2 Delivery O2 Flow Rate FiO2 01/26/21 11:00 98.0 83 16 143/90 (107) 96 Room Air 98.0 Physical Exam Physical Exam: GENERAL: Alert, oriented gentleman, not in distress. VITAL SIGNS: Stable. HEENT: Both pupils are round and reacting. No conjunctival lesion. No lesion in the mouth. NECK: Supple. No JVP. No lymphadenopathy. LUNGS: Clear. HEART: S1, S2, regular. ABDOMEN: Soft, nontender. No organomegaly. EXTREMITIES: No edema, cyanosis. SKIN: The patient does have some hives from fentanyl and lip swelling. SPINE: There is incision with drainage present. NEUROLOGIC: The patient is alert, awake and appropriate. No focal neurologic deficit. General: Alert, Oriented X3, Cooperative, Other (Facial swelling resolved) Heart: Regular rate Lungs: Clear Abdomen: Normal bowel sounds Extremities: No clubbing Skin: Other (dressing intact, has been recently changed per RN) Labs Labs: Laboratory Tests Test 01/25/21 12:03 01/25/21 12:35 01/25/21 17:30 01/25/21 20:26 Glucose (Fingerstick) 387 mg/dL (70-99) 390 mg/dL (70-99) 420 mg/dL (70-99) White Blood Count 14.0 x10^3/uL (4.0-11.0) Red Blood Count 5.61 x10^6/uL (4.30-5.70) Hemoglobin 16.1 g/dL (13.0-17.5) Hematocrit 48.8 % (39.0-53.0) Mean Corpuscular Volume 87 fL (79-100) Mean Corpuscular Hemoglobin 29 pg (25-35) Mean Corpuscular Hemoglobin Concent 33 g/dL (31-37) Red Cell Distribution Width 14.8 % (11.5-14.5) Platelet Count 289 x10^3/uL (140-400) Neutrophils (%) (Auto) 91 % (31-73) Lymphocytes (%) (Auto) 5 % (24-48) Monocytes (%) (Auto) 4 % (0-9) Eosinophils (%) (Auto) 0 % (0-3) Basophils (%) (Auto) 0 % (0-3) Neutrophils # (Auto) 12.8 x10^3/uL (1.8-7.7) Lymphocytes # (Auto) 0.7 x10^3/uL (1.0-4.8) Monocytes # (Auto) 0.5 x10^3/uL (0.0-1.1) Eosinophils # (Auto) 0.0 x10^3/uL (0.0-0.7) Basophils # (Auto) 0.0 x10^3/uL (0.0-0.2) Sodium Level 134 mmol/L (136-145) Potassium Level 4.6 mmol/L (3.5-5.1) Chloride Level 96 mmol/L (98-107) Carbon Dioxide Level 26 mmol/L (21-32) Anion Gap 12 (6-14) Blood Urea Nitrogen 32 mg/dL (8-26) Creatinine 1.7 mg/dL (0.7-1.3) Estimated GFR (Cockcroft-Gault) 42.1 Glucose Level 374 mg/dL (70-99) Calcium Level 9.2 mg/dL (8.5-10.1) Test 01/26/21 01:55 01/26/21 07:41 01/26/21 08:30 01/26/21 11:49 Glucose (Fingerstick) 356 mg/dL (70-99) 305 mg/dL (70-99) 273 mg/dL (70-99) White Blood Count 10.4 x10^3/uL (4.0-11.0) Red Blood Count 5.91 x10^6/uL (4.30-5.70) Hemoglobin 17.5 g/dL (13.0-17.5) Hematocrit 52.1 % (39.0-53.0) Mean Corpuscular Volume 88 fL (79-100) Mean Corpuscular Hemoglobin 30 pg (25-35) Mean Corpuscular Hemoglobin Concent 34 g/dL (31-37) Red Cell Distribution Width 14.7 % (11.5-14.5) Platelet Count 245 x10^3/uL (140-400) Neutrophils (%) (Auto) 77 % (31-73) Lymphocytes (%) (Auto) 14 % (24-48) Monocytes (%) (Auto) 8 % (0-9) Eosinophils (%) (Auto) 0 % (0-3) Basophils (%) (Auto) 1 % (0-3) Neutrophils # (Auto) 8.1 x10^3/uL (1.8-7.7) Lymphocytes # (Auto) 1.5 x10^3/uL (1.0-4.8) Monocytes # (Auto) 0.8 x10^3/uL (0.0-1.1) Eosinophils # (Auto) 0.0 x10^3/uL (0.0-0.7) Basophils # (Auto) 0.1 x10^3/uL (0.0-0.2) Sodium Level 137 mmol/L (136-145) Potassium Level 3.9 mmol/L (3.5-5.1) Chloride Level 96 mmol/L (98-107) Carbon Dioxide Level 32 mmol/L (21-32) Anion Gap 9 (6-14) Blood Urea Nitrogen 30 mg/dL (8-26) Creatinine 1.4 mg/dL (0.7-1.3) Estimated GFR (Cockcroft-Gault) 52.6 Glucose Level 283 mg/dL (70-99) Calcium Level 9.2 mg/dL (8.5-10.1) Comment Review of Relevant I have reviewed the following items lashaun (where applicable) has been applied. Medications: Current Medications Medications (Trade) Dose Ordered Sig/Zain Route PRN Reason Start Time Stop Time Status Last Admin Dose Admin Hydralazine HCl (Apresoline) 50 mg TID PO 01/25/21 14:00 01/26/21 08:31 Prednisone (Prednisone) 40 mg DAILY PO 01/26/21 09:00 01/26/21 09:15 DC 01/26/21 08:31 Insulin Human Lispro (HumaLOG) 5 units TIDWMEALS SQ 01/25/21 17:00 01/26/21 08:22 Insulin Human Lispro (HumaLOG) 20 units 1X ONCE SQ 01/25/21 18:00 01/25/21 18:03 DC 01/25/21 18:18 Justifications for Admission Other Justification BRIANA CHU MD Jan 26, 2021 11:57
[2021-01-26] MEDS: POLYETHYLENE GLYCOL 3350 17 GM PACKET. PO PRN (12:12)
[2021-01-26] MEDS: diphenhydrAMINE 50 MG/ML VIAL IVP PRN ×2 (12:13→22:56)
[2021-01-26] MEDS ORDERED: methylPREDNISolone SOD SUCC PF 125 MG/2 ML VIAL. IV ONE (14:30)
[2021-01-26 15:00] VITALS: BP 145/108
--- NOTE | 2021-01-26 16:25 | PDOC ---
PROGRESS NOTES Date of Service DATE: 01/26/21 TIME: 16:22 Subjective Subjective patient seen at 1240 c/o back pain , slightly improved has been up ambulating Objective Objective Vital Signs Date Time Temp Pulse Resp B/P (MAP) Pulse Ox O2 Delivery O2 Flow Rate FiO2 01/26/21 15:00 98.1 94 16 145/108 (120) 94 Room Air 98.1 Intake and Output 01/26/21 07:00 # Voids 1 Physical Exam General: Alert, Oriented X3, Cooperative, Other (facial swelling improved) MUSCULOSKELETAL: Other (KEYES) Neuro: Other (normal strength in LE) Skin: Other (dressing with some ss drainge, flat, intact) Plan Plan of Care wound care IV antibiotics per ID activity as tolerated taper steroids Comment Review of Relevant I have reviewed the following items lashaun (where applicable) has been applied. Labs Laboratory Tests Test 01/24/21 16:32 01/24/21 20:58 01/25/21 07:23 01/25/21 12:03 Glucose (Fingerstick) 221 mg/dL (70-99) 403 mg/dL (70-99) 328 mg/dL (70-99) 387 mg/dL (70-99) Test 01/25/21 12:35 01/25/21 17:30 01/25/21 20:26 01/26/21 01:55 White Blood Count 14.0 x10^3/uL (4.0-11.0) Red Blood Count 5.61 x10^6/uL (4.30-5.70) Hemoglobin 16.1 g/dL (13.0-17.5) Hematocrit 48.8 % (39.0-53.0) Mean Corpuscular Volume 87 fL (79-100) Mean Corpuscular Hemoglobin 29 pg (25-35) Mean Corpuscular Hemoglobin Concent 33 g/dL (31-37) Red Cell Distribution Width 14.8 % (11.5-14.5) Platelet Count 289 x10^3/uL (140-400) Neutrophils (%) (Auto) 91 % (31-73) Lymphocytes (%) (Auto) 5 % (24-48) Monocytes (%) (Auto) 4 % (0-9) Eosinophils (%) (Auto) 0 % (0-3) Basophils (%) (Auto) 0 % (0-3) Neutrophils # (Auto) 12.8 x10^3/uL (1.8-7.7) Lymphocytes # (Auto) 0.7 x10^3/uL (1.0-4.8) Monocytes # (Auto) 0.5 x10^3/uL (0.0-1.1) Eosinophils # (Auto) 0.0 x10^3/uL (0.0-0.7) Basophils # (Auto) 0.0 x10^3/uL (0.0-0.2) Sodium Level 134 mmol/L (136-145) Potassium Level 4.6 mmol/L (3.5-5.1) Chloride Level 96 mmol/L (98-107) Carbon Dioxide Level 26 mmol/L (21-32) Anion Gap 12 (6-14) Blood Urea Nitrogen 32 mg/dL (8-26) Creatinine 1.7 mg/dL (0.7-1.3) Estimated GFR (Cockcroft-Gault) 42.1 Glucose Level 374 mg/dL (70-99) Calcium Level 9.2 mg/dL (8.5-10.1) Glucose (Fingerstick) 390 mg/dL (70-99) 420 mg/dL (70-99) 356 mg/dL (70-99) Test 01/26/21 07:41 01/26/21 08:30 01/26/21 11:49 Glucose (Fingerstick) 305 mg/dL (70-99) 273 mg/dL (70-99) White Blood Count 10.4 x10^3/uL (4.0-11.0) Red Blood Count 5.91 x10^6/uL (4.30-5.70) Hemoglobin 17.5 g/dL (13.0-17.5) Hematocrit 52.1 % (39.0-53.0) Mean Corpuscular Volume 88 fL (79-100) Mean Corpuscular Hemoglobin 30 pg (25-35) Mean Corpuscular Hemoglobin Concent 34 g/dL (31-37) Red Cell Distribution Width 14.7 % (11.5-14.5) Platelet Count 245 x10^3/uL (140-400) Neutrophils (%) (Auto) 77 % (31-73) Lymphocytes (%) (Auto) 14 % (24-48) Monocytes (%) (Auto) 8 % (0-9) Eosinophils (%) (Auto) 0 % (0-3) Basophils (%) (Auto) 1 % (0-3) Neutrophils # (Auto) 8.1 x10^3/uL (1.8-7.7) Lymphocytes # (Auto) 1.5 x10^3/uL (1.0-4.8) Monocytes # (Auto) 0.8 x10^3/uL (0.0-1.1) Eosinophils # (Auto) 0.0 x10^3/uL (0.0-0.7) Basophils # (Auto) 0.1 x10^3/uL (0.0-0.2) Sodium Level 137 mmol/L (136-145) Potassium Level 3.9 mmol/L (3.5-5.1) Chloride Level 96 mmol/L (98-107) Carbon Dioxide Level 32 mmol/L (21-32) Anion Gap 9 (6-14) Blood Urea Nitrogen 30 mg/dL (8-26) Creatinine 1.4 mg/dL (0.7-1.3) Estimated GFR (Cockcroft-Gault) 52.6 Glucose Level 283 mg/dL (70-99) Calcium Level 9.2 mg/dL (8.5-10.1) Laboratory Tests Test 01/25/21 17:30 01/25/21 20:26 01/26/21 01:55 01/26/21 07:41 Glucose (Fingerstick) 390 mg/dL (70-99) 420 mg/dL (70-99) 356 mg/dL (70-99) 305 mg/dL (70-99) Test 01/26/21 08:30 01/26/21 11:49 White Blood Count 10.4 x10^3/uL (4.0-11.0) Red Blood Count 5.91 x10^6/uL (4.30-5.70) Hemoglobin 17.5 g/dL (13.0-17.5) Hematocrit 52.1 % (39.0-53.0) Mean Corpuscular Volume 88 fL (79-100) Mean Corpuscular Hemoglobin 30 pg (25-35) Mean Corpuscular Hemoglobin Concent 34 g/dL (31-37) Red Cell Distribution Width 14.7 % (11.5-14.5) Platelet Count 245 x10^3/uL (140-400) Neutrophils (%) (Auto) 77 % (31-73) Lymphocytes (%) (Auto) 14 % (24-48) Monocytes (%) (Auto) 8 % (0-9) Eosinophils (%) (Auto) 0 % (0-3) Basophils (%) (Auto) 1 % (0-3) Neutrophils # (Auto) 8.1 x10^3/uL (1.8-7.7) Lymphocytes # (Auto) 1.5 x10^3/uL (1.0-4.8) Monocytes # (Auto) 0.8 x10^3/uL (0.0-1.1) Eosinophils # (Auto) 0.0 x10^3/uL (0.0-0.7) Basophils # (Auto) 0.1 x10^3/uL (0.0-0.2) Sodium Level 137 mmol/L (136-145) Potassium Level 3.9 mmol/L (3.5-5.1) Chloride Level 96 mmol/L (98-107) Carbon Dioxide Level 32 mmol/L (21-32) Anion Gap 9 (6-14) Blood Urea Nitrogen 30 mg/dL (8-26) Creatinine 1.4 mg/dL (0.7-1.3) Estimated GFR (Cockcroft-Gault) 52.6 Glucose Level 283 mg/dL (70-99) Calcium Level 9.2 mg/dL (8.5-10.1) Glucose (Fingerstick) 273 mg/dL (70-99) Microbiology 01/22/21 Gram Stain - Final, Resulted 01/22/21 Aerobic and Anaerobic Culture - Preliminary, Resulted 01/22/21 Antimicrobic Susceptibility - Preliminary, Resulted Medications Current Medications Fentanyl Citrate (Fentanyl 2ml Vial) 50 mcg PRN Q2HR PRN IVP PAIN Last administered on 01/23/21at 02:11; Start 01/22/21 at 16:00; Stop 01/23/21 at 03:01; Status DC Aspirin (Aspirin Chewable) 81 mg DAILY PO Last administered on 01/26/21at 08:32; Start 01/23/21 at 09:00 Clonidine HCl (Catapres Tts-2) 1 patch WEEKLY TD Last administered on 01/22/21at 16:26; Start 01/22/21 at 17:00 Docusate Sodium (Colace) 100 mg BID PO Last administered on 01/26/21at 08:30; Start 01/22/21 at 21:00 EZETIMIBE (Zetia) 10 mg DAILY PO Last administered on 01/26/21at 08:31; Start 01/23/21 at 09:00 Hydralazine HCl (Apresoline) 50 mg DAILY PO Last administered on 01/24/21at 08:41; Start 01/23/21 at 09:00; Stop 01/24/21 at 14:47; Status DC Hydrochlorothiazide (Microzide) 12.5 mg DAILY PO Last administered on 01/26/21at 08:31; Start 01/23/21 at 09:00 Acetaminophen/ Hydrocodone Bitart (Lortab 7.5/325) 2 tab PRN Q4HRS PRN PO PAIN Last administered on 01/23/21at 10:25; Start 01/22/21 at 16:00; Stop 01/23/21 at 13:34; Status DC Lisinopril (Prinivil) 20 mg DAILY PO ; Start 01/23/21 at 09:00; Stop 01/23/21 at 06:31; Status DC Methocarbamol (Robaxin) 750 mg TID PRN PRN PO MUSCLE SPASMS Last administered on 01/25/21at 10:10; Start 01/22/21 at 16:00 Atorvastatin Calcium (Lipitor) 80 mg DAILY PO Last administered on 01/26/21at 08:31; Start 01/23/21 at 09:00 Non-Formulary Medication (Empagliflozin (Jardiance)) 25 mg DAILY PO ; Start 01/23/21 at 09:00; Stop 01/23/21 at 18:17; Status DC Febuxostat (Uloric) 80 mg DAILY PO Last administered on 01/26/21at 08:31; Start 01/23/21 at 09:00 Non-Formulary Medication (Icosapent Ethyl (Vascepa)) 1 gm BID PO ; Start 01/22/21 at 21:00; Stop 01/23/21 at 18:18; Status DC Metoprolol Tartrate (Lopressor) 50 mg BID PO Last administered on 01/26/21at 08:32; Start 01/22/21 at 21:00 Probenecid (Benemid) 500 mg BID PO Last administered on 01/26/21at 08:32; Start 01/22/21 at 21:00 Non-Formulary Medication (Semaglutide (Ozempic)) 1 mg WEEKLY SQ ; Start 01/29/21 at 09:00; Status UNV Zolpidem Tartrate (Ambien) 5 mg PRN QHS PRN PO INSOMNIA, MAY REPEAT X1 Last administered on 01/23/21at 21:00; Start 01/22/21 at 16:15 Insulin Human Lispro (HumaLOG) 0-9 UNITS TIDWMEALS SQ Last administered on 01/26/21at 12:00; Start 01/22/21 at 00:00 Dextrose (Dextrose 50%-Water Syringe) 12.5 gm PRN Q15MIN PRN IV SEE COMMENTS; Start 01/22/21 at 20:45 Diphenhydramine HCl (Benadryl) 50 mg PRN Q6HRS PRN IVP ITCHING, 1ST CHOICE Last administered on 01/26/21at 12:13; Start 01/23/21 at 03:00 Diphenhydramine HCl (Benadryl) 100 mg PRN Q6HRS PRN IVP ITCHING, 2ND CHOICE; Start 01/23/21 at 03:00 Morphine Sulfate (Morphine Sulfate) 2 mg PRN Q2HR PRN IVP PAIN Last admin istered on 01/26/21at 15:57; Start 01/23/21 at 03:00 Famotidine (Pepcid Vial) 20 mg BID IVP Last administered on 01/26/21at 08:30; Start 01/23/21 at 07:00 Methylprednisolone Sodium Succinate (SOLU-Medrol 40MG VIAL) 40 mg Q12HR IV Last administered on 01/25/21at 08:02; Start 01/23/21 at 07:00; Stop 01/25/21 at 09:43; Status DC Daptomycin 640 mg/ Sodium Chloride 50 ml @ 100 mls/hr Q24H IV Last administered on 01/23/21at 11:01; Start 01/23/21 at 10:00; Stop 01/23/21 at 14:59; Status DC Piperacillin Sod/ Tazobactam Sod 3.375 gm/Sodium Chloride 50 ml @ 100 mls/hr Q6HRS IV Last administered on 01/25/21at 06:16; Start 01/23/21 at 10:00; Stop 01/25/21 at 08:23; Status DC Lactobacillus Rhamnosus (Culturelle) 1 cap BID PO Last administered on 1at 08:31; Start 01/23/21 at 21:00 Oxycodone/ Acetaminophen (Percocet 5/325) 1 tab PRN Q4HRS PRN PO MODERATE PAIN; Start 01/23/21 at 13:45 Oxycodone/ Acetaminophen (Percocet 5/325) 2 tab PRN Q4HRS PRN PO SEVERE PAIN Last administered on 01/26/21at 12:50; Start 01/23/21 at 13:45 Daptomycin 500 mg/ Sodium Chloride 50 ml @ 100 mls/hr Q24H IV Last administered on 01/26/21at 09:03; Start 01/24/21 at 09:00; Stop 01/26/21 at 12:51; Status DC Labetalol HCl (Normodyne Iv Push) 10 mg PRN Q15MIN PRN IVP HYPERTENSION Last administered on 01/25/21at 08:04; Start 01/24/21 at 00:00 Ziprasidone (Geodon) 20 mg PRN Q2HRS PRN PO ANXIETY / AGITATION Last administered on 01/25/21at 10:10; Start 01/24/21 at 00:00 Hydralazine HCl (Apresoline) 25 mg TID PO Last administered on 01/25/21at 08:01; Start 01/24/21 at 00:30; Stop 01/25/21 at 09:37; Status DC Insulin Human Lispro (HumaLOG) 5 units 1X ONCE SQ Last administered on 01/24/21at 00:19; Start 01/24/21 at 00:30; Stop 01/24/21 at 00:31; Status DC Ziprasidone (Geodon Im) 10 mg PRN Q2HRS PRN IM AGITATION Last administered on 01/24/21at 06:05; Start 01/24/21 at 00:15 Lidocaine HCl (Buffered Lidocaine 1%) 3 ml STK-MED ONCE .ROUTE ; Start 01/24/21 at 12:11; Stop 01/24/21 at 12:11; Status DC Lidocaine HCl (Buffered Lidocaine 1%) 3 ml STK-MED ONCE .ROUTE ; Start 01/24/21 at 12:21; Stop 01/24/21 at 12:22; Status DC Lidocaine HCl (Buffered Lidocaine 1%) 6 ml 1X ONCE INJ Last administered on 01/24/21at 13:10; Start 01/24/21 at 12:30; Stop 01/24/21 at 12:34; Status DC Gadoterate Meglumine (Clariscan) 20 ml 1X ONCE IVP Last administered on 01/24/21at 15:55; Start 01/24/21 at 15:30; Stop 01/24/21 at 15:31; Status DC Insulin Human Lispro (HumaLOG) 12 units 1X ONCE SQ Last administered on 01/24/21at 22:05; Start 01/24/21 at 22:00; Stop 01/24/21 at 22:01; Status DC Hydralazine HCl (Apresoline) 50 mg TID PO Last administered on 01/26/21at 12:13; Start 01/25/21 at 14:00 Insulin Glargine (Lantus Syringe) 10 unit BID SQ Last administered on 01/26/21at 09:09; Start 01/25/21 at 11:00 Prednisone (Prednisone) 40 mg DAILY PO Last administered on 01/26/21at 08:31; Start 01/26/21 at 09:00; Stop 01/26/21 at 09:15; Status DC Insulin Human Lispro (HumaLOG) 5 units TIDWMEALS SQ Last administered on 01/26/21at 12:00; Start 01/25/21 at 17:00 Polyethylene Glycol (miraLAX PACKET) 17 gm PRN Q4HRS PRN PO CONSTIPATION Last administered on 01/26/21at 12:12; Start 01/25/21 at 16:15 Insulin Human Lispro (HumaLOG) 20 units 1X ONCE SQ Last administered on 01/25/21at 18:18; Start 01/25/21 at 18:00; Stop 01/25/21 at 18:03; Status DC Prednisone (Prednisone) 20 mg DAILY PO ; Start 01/27/21 at 09:00 Amlodipine Besylate (Norvasc) 5 mg DAILY PO ; Start 01/26/21 at 09:15 Cefazolin Sodium/ Dextrose 50 ml @ 100 mls/hr Q8HRS IV Last administered on 01/26/21at 13:43; Start 01/26/21 at 14:00 Methylprednisolone Sodium Succinate (SOLU-Medrol 125MG VIAL) 125 mg 1X ONCE IV Last administered on 01/26/21at 14:59; Start 01/26/21 at 14:30; Stop 01/26/21 at 14:31; Status DC Active Scripts Active Colace (Docusate Sodium) 100 Mg Capsule 100 Mg PO BID 60 Days Methocarbamol 750 Mg Tablet 750 Mg PO TID PRN PRN Reported [V-Go 40 Day Kit ] Units SQ Q1HR 5 CLICKS @ MEALS 2 CLICKS @ SNACKS Freestyle Lite Test Strip (Blood Sugar Diagnostic) 1 Each Strip 1 Strip MC DAILY 30 Days Hydrocodone-Apap 7.5-325 (Hydrocodone Bit/Acetaminophen) 1 Tab Tablet 1-2 Tab PO PRN Q4HRS PRN Vascepa (Icosapent Ethyl) 1 Gm Capsule 1 Gm PO BID Zolpidem Tartrate Er (Zolpidem Tartrate) 12.5 Mg Tab.mphase 12.5 Mg PO PRN QHS PRN Probenecid 500 Mg Tablet 500 Mg PO BID Hydrochlorothiazide Capsule (Hydrochlorothiazide) 12.5 Mg Capsule 12.5 Mg PO DAILY Hydralazine Hcl 50 Mg Tablet 1 Tab PO DAILY Uloric (Febuxostat) 80 Mg Tablet 1 Tab PO DAILY 30 Days Clonidine Tts-2 (Clonidine) 1 Each Patch.tdwk 1 Patch TD WEEKLY Bystolic (Nebivolol Hcl) 20 Mg Tablet 20 Mg PO DAILY Aspirin 81 Mg Tab.chew 1 Tab PO DAILY Zetia (Ezetimibe) 10 Mg Tablet 10 Mg PO DAILY Zestril (Lisinopril) 20 Mg Tablet 1 Tab PO DAILY 30 Days Ozempic (Semaglutide) 1 Mg/0.75 Ml Pen.injctr 1 Mg SQ WEEKLY THURSDAY Lipitor (Atorvastatin Calcium) 80 Mg Tablet 1 Tab PO DAILY Jardiance (Empagliflozin) 25 Mg Tablet 25 Mg PO DAILY Vitals/I & O Vital Sign - Last 24 Hours 01/25/21 01/25/21 01/25/21 01/25/21 18:34 19:00 19:04 19:56 Temp 97.4 97.4 Pulse 94 Resp 16 B/P (MAP) 210/132 (158) Pulse Ox 98 98 98 O2 Delivery Room Air Room Air Room Air Room Air 01/25/21 01/25/21 01/25/21 01/25/21 20:00 20:09 20:09 20:26 Pulse 98 98 B/P (MAP) 158/92 158/92 Pulse Ox 97 O2 Delivery Room Air Room Air 01/25/21 01/25/21 01/25/21 01/26/21 22:33 23:00 23:03 06:09 Temp 97.6 97.6 Pulse 100 Resp 16 B/P (MAP) 169/97 (121) Pulse Ox 98 97 97 97 O2 Delivery Room Air Room Air Room Air Room Air 01/26/21 01/26/21 01/26/21 01/26/21 06:39 07:00 08:00 08:31 Temp 97.8 97.8 Pulse 88 88 Resp 16 B/P (MAP) 179/119 (139) 179/119 Pulse Ox 97 97 O2 Delivery Room Air Room Air Room Air 01/26/21 01/26/21 01/26/21 01/26/21 08:32 09:09 11:00 12:13 Temp 98.0 98.0 Pulse 88 83 83 Resp 16 B/P (MAP) 179/119 143/90 (107) 143/90 Pulse Ox 97 96 O2 Delivery Room Air Room Air 01/26/21 15:00 Temp 98.1 98.1 Pulse 94 Resp 16 B/P (MAP) 145/108 (120) Pulse Ox 94 O2 Delivery Room Air Justifications for Admission Other Justification DOUG ZAMAN MD Jan 26, 2021 16:25
[2021-01-26 19:20] VITALS: BP 166/115
[2021-01-26 22:55] VITALS: BP 187/124
[2021-01-27] VITALS (8 sets, daily range): BP systolic 146–188; BP diastolic 100–129
[2021-01-27] MEDS: MORPHINE SULFATE 2 MG/ML INJ. IVP PRN ×4 (00:48→17:06)
[2021-01-27] MEDS: LABETALOL 20 MG/4 ML DISP.SYRIN. IVP PRN ×3 (00:53→05:01)
[2021-01-27] MEDS: oxyCODONE/APAP 5/325 1 TAB TABLET PO PRN ×4 (02:37→21:16)
[2021-01-27] MEDS: METHOCARBAMOL 750 MG TABLET PO PRN (02:45)
[2021-01-27] MEDS: PROBENECID 500 MG TABLET PO SCH ×2 (07:37→21:08)
[2021-01-27] MEDS: LACTOBACILLUS RHAMNOSUS GG 1 CAPSULE. PO SCH ×2 (07:37→21:09)
[2021-01-27] MEDS: FEBUXOSTAT 40 MG TABLET PO SCH (07:37)
[2021-01-27] MEDS: FAMOTIDINE 20 MG/2 ML VIAL IVP SCH ×2 (07:37→21:08)
[2021-01-27] MEDS: METOPROLOL TART IMMED RELEASE 50 MG TABLET. PO SCH ×2 (07:38→21:08)
[2021-01-27] MEDS: predniSONE 20 MG TABLET PO SCH (07:38)
[2021-01-27] MEDS: ATORVASTATIN CALCIUM 40 MG TABLET. PO SCH (07:38)
[2021-01-27] MEDS: ASPIRIN CHEWABLE 81 MG TABLET. PO SCH (07:38)
[2021-01-27] MEDS: DOCUSATE SODIUM 100 MG CAPSULE. PO SCH ×2 (07:38→21:08)
[2021-01-27] MEDS: EZETIMIBE 10 MG TABLET. PO SCH (07:38)
[2021-01-27] MEDS: INSULIN LISPRO 300 UNITS/3 ML VIAL. SQ SCH ×5 (07:44→17:09)
[2021-01-27] MEDS: hydroCHLOROthiazide 12.5 MG CAPSULE PO SCH (09:00)
[2021-01-27 09:19] LABS: BASO % 0 % (0-3); EOS % 0 % (0-3); HEMATOCRIT 49.8 % (39.0-53.0); HEMOGLOBIN 16.4 g/dL (13.0-17.5); LYMPH % 9 % (24-48); MEAN CORPUSCULAR HEMOGLOBIN 29 pg (25-35); MEAN CORPUSCULAR HGB CONC 33 g/dL (31-37); MEAN CORPUSCULAR VOLUME 88 fL (79-100); MONO # 0.4 x10^3/uL (0.0-1.1); MONO % 4 % (0-9); NEUT # 10.4 x10^3/uL (1.8-7.7); NEUT % 88 % (31-73); PLATELET COUNT 247 x10^3/uL (140-400); RED BLOOD COUNT 5.63 x10^6/uL (4.30-5.70); RED CELL DISTRIBUTION WIDTH 14.7 % (11.5-14.5); WHITE BLOOD COUNT 11.9 x10^3/uL (4.0-11.0)
[2021-01-27 09:28] LABS: CREATININE 1.5 mg/dL (0.7-1.3); GFR 48.6; POTASSIUM 4.3 mmol/L (3.5-5.1)
[2021-01-27] MEDS: POLYETHYLENE GLYCOL 3350 17 GM PACKET. PO PRN (09:40)
[2021-01-27] MEDS: INSULIN GLARGINE SYRINGE. SQ SCH ×2 (09:44→21:15)
--- NOTE | 2021-01-27 10:03 | PDOC ---
[facility] PROGRESS NOTE Date of Service DOS: DATE: 01/27/21 TIME: 10:01 Chief Complaint Chief Complaint MICHAEL inhibitor induced angioedema Postoperative wound infection Continue with IV Solu-Medrol twice daily then transition to prednisone taper on 01/25/2021 Appreciate infectious disease recommendations for antibiotic management Pending blood and wound cultures Would avoid MICHAEL inhibitor for now, possible ARB in the future. Pending C4 levels and C1 esterase levels History of Present Illness History of Present Illness 55-year-old male who underwent lumbar hemilaminectomy of the L3-L4 levels on January 09, 2021. He was actually discharged home the following day was doing well. Unfortunately patient had a surgical site complication with infection he was started on Keflex and failed p.o. antibiotics over the weekend. There was increasing pain and serous drainage from incision and he was brought in for further evaluation and IV antibiotics. He was given fentanyl for pain and patient was on lisinopril chronically. Unfortunately patient had angioedema most likely with his use of MICHAEL inhibitors. Infectious diseases consulted for antibiotic management. Patient interviewed bedside and he was doing well. He denies any throat swelling or wheezing or trouble breathing. He does not have any periorbital edema or facial swelling. Only upper portion of his lip is swollen and his tongue is fine. He is speaking in full sentences without any use of his accessory muscles. Denies fevers, confusion, syncope, chest pain, shortness of breath, abdominal pain, diarrhea or hematuria. 01/24/2021 Patient had an acute agitative and confusion episode last night. Patient ripped out the sharps container from the wall. He appears to be close to his baseline today and appears lethargic but talking on the phone. Sitting on the recliner and not agitated at this time. No fevers somewhat tachycardic and no hypotensive episodes. Swelling of his upper lip appears to be improved. No redness or swelling. Patient will likely benefit from a PICC line placement for long-term IV antibiotics. Will defer the timing and course to infectious disease. Patient's chart, labs, images were reviewed and discussed with RN 01/25/2021 No acute events overnight. Patient is ambulating through the hallways back pain . There is clear drainage on the dressings which will need to be switched out. Blood pressures have been uncontrolled with systolic blood pressures from 1 60-1 90. He does have IV antihypertensive medications as needed. I have increased his hydralazine to 50 mg 3 times daily. His sugars have also been greater than 300 and as high as 400. I have added a long-acting Lantus 10 units twice daily and keeping him on regular insulin sliding scale. Patient usually does have an insulin pump in which he had his friend bring. However due to his staff aureus infection I would recommend him not to place the insulin pump at this time and only administer insulin as needed and do subcu injections. I have also decreased his Solu-Medrol to a prednisone taper at 40 mg daily for now. 01/26/2021 No acute events overnight. Patient seen and examined bedside. Resting comfortably. Appears pain is well controlled. Blood pressures have improved. Will decrease his prednisone to 20 mg daily. Continue his 5 units 3 times daily with meals of lispro and long-acting glargine 10 units twice daily with sliding scale high intensity. Patient's chart, labs, images were reviewed and discussed with RN 01/27/2021 No acute events overnight. Patient yesterday had some swelling around the eyes and I gave a dose of pulse IV steroids. Swelling and irritation or hives around the periorbital region has improved. Patient has some drug-seeking behavior which she was requiring only IV pain medications. Patient seen and examined bedside. Patient was using his cell phone at the time and appeared to be content. Not in any active pain at the time. No acute agitative episodes overnight. Wound is appearing improved without much drainage. Continue to taper steroids and continued IV antibiotics per ID. I have increased her glargine to 15 units twice daily and increased his premale lispro to 10 units before meals. Patient's chart, labs, images were reviewed and discussed with RN Vitals/I&O Vitals/I&O: Vital Signs Date Time Temp Pulse Resp B/P (MAP) Pulse Ox O2 Delivery O2 Flow Rate FiO2 01/27/21 09:40 97 Room Air 01/27/21 09:00 86 152/100 01/27/21 07:00 97.6 18 97.6 I & O 01/26/21 01/26/21 01/27/21 15:00 23:00 07:00 Intake Total 240 ml Output Total 300 ml Balance -300 ml 240 ml Physical Exam Physical Exam: GENERAL: Alert, oriented gentleman, not in distress. VITAL SIGNS: Stable. HEENT: Both pupils are round and reacting. No conjunctival lesion. No lesion in the mouth. NECK: Supple. No JVP. No lymphadenopathy. LUNGS: Clear. HEART: S1, S2, regular. ABDOMEN: Soft, nontender. No organomegaly. EXTREMITIES: No edema, cyanosis. SKIN: The patient does have some hives from fentanyl and lip swelling. SPINE: There is incision with drainage present. NEUROLOGIC: The patient is alert, awake and appropriate. No focal neurologic deficit. General: Alert, Oriented X3, Cooperative, Other (facial swelling improved) Heart: Regular rate Lungs: Clear Abdomen: Normal bowel sounds Extremities: No clubbing Skin: Other (dressing with some ss drainge, flat, intact) Labs Labs: Laboratory Tests Test 01/26/21 11:49 01/26/21 17:16 01/26/21 20:48 01/27/21 07:15 Glucose (Fingerstick) 273 mg/dL (70-99) 332 mg/dL (70-99) 363 mg/dL (70-99) 360 mg/dL (70-99) Test 01/27/21 08:00 White Blood Count 11.9 x10^3/uL (4.0-11.0) Red Blood Count 5.63 x10^6/uL (4.30-5.70) Hemoglobin 16.4 g/dL (13.0-17.5) Hematocrit 49.8 % (39.0-53.0) Mean Corpuscular Volume 88 fL (79-100) Mean Corpuscular Hemoglobin 29 pg (25-35) Mean Corpuscular Hemoglobin Concent 33 g/dL (31-37) Red Cell Distribution Width 14.7 % (11.5-14.5) Platelet Count 247 x10^3/uL (140-400) Neutrophils (%) (Auto) 88 % (31-73) Lymphocytes (%) (Auto) 9 % (24-48) Monocytes (%) (Auto) 4 % (0-9) Eosinophils (%) (Auto) 0 % (0-3) Basophils (%) (Auto) 0 % (0-3) Neutrophils # (Auto) 10.4 x10^3/uL (1.8-7.7) Lymphocytes # (Auto) 1.0 x10^3/uL (1.0-4.8) Monocytes # (Auto) 0.4 x10^3/uL (0.0-1.1) Eosinophils # (Auto) 0.0 x10^3/uL (0.0-0.7) Basophils # (Auto) 0.0 x10^3/uL (0.0-0.2) Sodium Level 135 mmol/L (136-145) Potassium Level 4.3 mmol/L (3.5-5.1) Chloride Level 95 mmol/L (98-107) Carbon Dioxide Level 33 mmol/L (21-32) Anion Gap 7 (6-14) Blood Urea Nitrogen 31 mg/dL (8-26) Creatinine 1.5 mg/dL (0.7-1.3) Estimated GFR (Cockcroft-Gault) 48.6 Glucose Level 281 mg/dL (70-99) Calcium Level 9.0 mg/dL (8.5-10.1) Comment Review of Relevant I have reviewed the following items lashaun (where applicable) has been applied. Medications: Current Medications Medications (Trade) Dose Ordered Sig/Zain Route PRN Reason Start Time Stop Time Status Last Admin Dose Admin Prednisone (Prednisone) 20 mg DAILY PO 01/27/21 09:00 01/27/21 07:38 Cefazolin Sodium/ Dextrose 50 ml @ 100 mls/hr Q8HRS IV 01/26/21 14:00 01/27/21 06:15 Methylprednisolone Sodium Succinate (SOLU-Medrol 125MG VIAL) 125 mg 1X ONCE IV 01/26/21 14:30 01/26/21 14:31 DC 01/26/21 14:59 Amlodipine Besylate (Norvasc) 10 mg DAILY PO 01/27/21 09:00 01/27/21 09:00 Insulin Glargine (Lantus Syringe) 15 unit BID SQ 01/27/21 09:00 01/27/21 09:44 Justifications for Admission Other Justification BRIANA CHU MD Jan 27, 2021 10:03
[2021-01-27] MEDS: diphenhydrAMINE 50 MG/ML VIAL IVP PRN (21:20)
[2021-01-28] VITALS (14 sets, daily range): BP systolic 119–198; BP diastolic 70–120
[2021-01-28] MEDS: LABETALOL 20 MG/4 ML DISP.SYRIN. IVP PRN ×5 (01:02→23:39)
--- NOTE | 2021-01-28 07:28 | PDOC ---
Infectious Disease Note Subjective: Subjective Patient feels better today Has pain whenever he does PT and OT Underwent dressing change earlier this morning Vital Signs: Vital Signs Vital Signs Date Time Temp Pulse Resp B/P (MAP) Pulse Ox O2 Delivery O2 Flow Rate FiO2 01/28/21 02:54 98.0 85 19 147/87 (107) 96 Room Air 98.0 Physical Exam: PHYSICAL EXAM GENERAL: Alert, oriented gentleman, not in distress. VITAL SIGNS: Stable. HEENT: Both pupils are round and reacting. No conjunctival lesion. No lesion in the mouth. NECK: Supple. No JVP. No lymphadenopathy. LUNGS: Clear. HEART: S1, S2, regular. ABDOMEN: Soft, nontender. No organomegaly. EXTREMITIES: No edema, cyanosis. SKIN: The patient does have some hives from fentanyl and lip swelling. SPINE: There is incision with drainage present. NEUROLOGIC: The patient is alert, awake and appropriate. No focal neurologic deficit. Medications: Inpatient Meds: Medications reviewed. Labs: Lab Laboratory Tests Test 01/27/21 08:00 01/27/21 11:06 01/27/21 16:37 01/27/21 21:16 White Blood Count 11.9 x10^3/uL (4.0-11.0) Red Blood Count 5.63 x10^6/uL (4.30-5.70) Hemoglobin 16.4 g/dL (13.0-17.5) Hematocrit 49.8 % (39.0-53.0) Mean Corpuscular Volume 88 fL (79-100) Mean Corpuscular Hemoglobin 29 pg (25-35) Mean Corpuscular Hemoglobin Concent 33 g/dL (31-37) Red Cell Distribution Width 14.7 % (11.5-14.5) Platelet Count 247 x10^3/uL (140-400) Neutrophils (%) (Auto) 88 % (31-73) Lymphocytes (%) (Auto) 9 % (24-48) Monocytes (%) (Auto) 4 % (0-9) Eosinophils (%) (Auto) 0 % (0-3) Basophils (%) (Auto) 0 % (0-3) Neutrophils # (Auto) 10.4 x10^3/uL (1.8-7.7) Lymphocytes # (Auto) 1.0 x10^3/uL (1.0-4.8) Monocytes # (Auto) 0.4 x10^3/uL (0.0-1.1) Eosinophils # (Auto) 0.0 x10^3/uL (0.0-0.7) Basophils # (Auto) 0.0 x10^3/uL (0.0-0.2) Sodium Level 135 mmol/L (136-145) Potassium Level 4.3 mmol/L (3.5-5.1) Chloride Level 95 mmol/L (98-107) Carbon Dioxide Level 33 mmol/L (21-32) Anion Gap 7 (6-14) Blood Urea Nitrogen 31 mg/dL (8-26) Creatinine 1.5 mg/dL (0.7-1.3) Estimated GFR (Cockcroft-Gault) 48.6 Glucose Level 281 mg/dL (70-99) Calcium Level 9.0 mg/dL (8.5-10.1) Glucose (Fingerstick) 341 mg/dL (70-99) 319 mg/dL (70-99) 368 mg/dL (70-99) Test 01/28/21 07:01 Glucose (Fingerstick) 317 mg/dL (70-99) Objective: Assessment: 1. Postsurgical spine infection. MSSA 2. Status post right-sided hemilaminotomy and microdiscectomy L3-L4 done on 01/09/2021. 3. Diabetes mellitus. 4. Hypertension. 5. Leukocytosis. 6. Renal insufficiency. Plan: Plan of Care Continue cefazolin Pain control per primary/neurosurgery When ready for discharge patient will need cefazolin as outpatient Prescription in chart Social work to assist with discharge antibiotics PICC online services manager and complications discussed Wound care per neurosurgery Follow-up in ID clinic in 2 weeks Feb 12 Discussed with JACKY CARBALLO MD Jan 28, 2021 07:28
[2021-01-28 07:56] LABS: BASO # 0.1 x10^3/uL (0.0-0.2); BASO % 1 % (0-3); EOS # 0.1 x10^3/uL (0.0-0.7); EOS % 1 % (0-3); HEMATOCRIT 50.1 % (39.0-53.0); HEMOGLOBIN 16.6 g/dL (13.0-17.5); LYMPH # 1.8 x10^3/uL (1.0-4.8); LYMPH % 19 % (24-48); MEAN CORPUSCULAR HEMOGLOBIN 29 pg (25-35); MEAN CORPUSCULAR HGB CONC 33 g/dL (31-37); MEAN CORPUSCULAR VOLUME 88 fL (79-100); MONO # 0.7 x10^3/uL (0.0-1.1); MONO % 7 % (0-9); NEUT # 7.1 x10^3/uL (1.8-7.7); NEUT % 73 % (31-73); PLATELET COUNT 215 x10^3/uL (140-400); RED BLOOD COUNT 5.69 x10^6/uL (4.30-5.70); RED CELL DISTRIBUTION WIDTH 14.4 % (11.5-14.5); WHITE BLOOD COUNT 9.8 x10^3/uL (4.0-11.0)
[2021-01-28 08:00] LABS: CALCIUM 8.5 mg/dL (8.5-10.1); CREATININE 1.4 mg/dL (0.7-1.3); GFR 52.6; POTASSIUM 3.9 mmol/L (3.5-5.1)
[2021-01-28] MEDS: oxyCODONE/APAP 5/325 1 TAB TABLET PO PRN (08:14)
[2021-01-28] MEDS: DOCUSATE SODIUM 100 MG CAPSULE. PO SCH ×2 (08:14→20:50)
[2021-01-28] MEDS: EZETIMIBE 10 MG TABLET. PO SCH (08:15)
[2021-01-28] MEDS: hydroCHLOROthiazide 12.5 MG CAPSULE PO SCH (08:15)
[2021-01-28] MEDS: FEBUXOSTAT 40 MG TABLET PO SCH (08:15)
[2021-01-28] MEDS: ASPIRIN CHEWABLE 81 MG TABLET. PO SCH (08:15)
[2021-01-28] MEDS: predniSONE 20 MG TABLET PO SCH (08:15)
[2021-01-28] MEDS: ATORVASTATIN CALCIUM 40 MG TABLET. PO SCH (08:16)
[2021-01-28] MEDS: LACTOBACILLUS RHAMNOSUS GG 1 CAPSULE. PO SCH ×2 (08:16→20:46)
[2021-01-28] MEDS: METOPROLOL TART IMMED RELEASE 50 MG TABLET. PO SCH ×2 (08:17→20:46)
[2021-01-28] MEDS: PROBENECID 500 MG TABLET PO SCH ×2 (08:17→20:46)
[2021-01-28] MEDS: INSULIN LISPRO 300 UNITS/3 ML VIAL. SQ SCH ×6 (08:32→18:07)
[2021-01-28] MEDS: FAMOTIDINE 20 MG/2 ML VIAL IVP SCH (09:00)
--- NOTE | 2021-01-28 10:10 | PDOC ---
PROGRESS NOTES Date of Service DATE: 01/28/21 TIME: 10:06 Subjective Subjective feels better today ambulating in room pain improving wants to go home Objective Objective Vital Signs Date Time Temp Pulse Resp B/P (MAP) Pulse Ox O2 Delivery O2 Flow Rate FiO2 01/28/21 08:47 96 20 168/115 (132) 01/28/21 07:15 97.9 96 Room Air 97.9 Intake and Output 01/28/21 07:00 Intake Total 350 ml Output Total 300 ml Balance 50 ml Intake Oral 350 ml Output Urine Total 300 ml Physical Exam General: Alert, Oriented X3, Cooperative, No acute distress, Other (facial swelling improved) MUSCULOSKELETAL: Other (KEYES) Neuro: Normal speech Skin: Other (dressing changed per RN this morning, some yellow serous drainage noted) Plan Plan of Care ok to DC when Home health services are arranged, will need dressing changes daily and blood pressure checks, blood glucose management- has pump at home wean steroids continue antibiotics at home follow up with ID in 2 weeks follow up with us in 2 weeks d/w RN Comment Review of Relevant I have reviewed the following items lashaun (where applicable) has been applied. Labs Laboratory Tests Test 01/26/21 11:49 01/26/21 17:16 01/26/21 20:48 01/27/21 07:15 Glucose (Fingerstick) 273 mg/dL (70-99) 332 mg/dL (70-99) 363 mg/dL (70-99) 360 mg/dL (70-99) Test 01/27/21 08:00 01/27/21 11:06 01/27/21 16:37 01/27/21 21:16 White Blood Count 11.9 x10^3/uL (4.0-11.0) Red Blood Count 5.63 x10^6/uL (4.30-5.70) Hemoglobin 16.4 g/dL (13.0-17.5) Hematocrit 49.8 % (39.0-53.0) Mean Corpuscular Volume 88 fL (79-100) Mean Corpuscular Hemoglobin 29 pg (25-35) Mean Corpuscular Hemoglobin Concent 33 g/dL (31-37) Red Cell Distribution Width 14.7 % (11.5-14.5) Platelet Count 247 x10^3/uL (140-400) Neutrophils (%) (Auto) 88 % (31-73) Lymphocytes (%) (Auto) 9 % (24-48) Monocytes (%) (Auto) 4 % (0-9) Eosinophils (%) (Auto) 0 % (0-3) Basophils (%) (Auto) 0 % (0-3) Neutrophils # (Auto) 10.4 x10^3/uL (1.8-7.7) Lymphocytes # (Auto) 1.0 x10^3/uL (1.0-4.8) Monocytes # (Auto) 0.4 x10^3/uL (0.0-1.1) Eosinophils # (Auto) 0.0 x10^3/uL (0.0-0.7) Basophils # (Auto) 0.0 x10^3/uL (0.0-0.2) Sodium Level 135 mmol/L (136-145) Potassium Level 4.3 mmol/L (3.5-5.1) Chloride Level 95 mmol/L (98-107) Carbon Dioxide Level 33 mmol/L (21-32) Anion Gap 7 (6-14) Blood Urea Nitrogen 31 mg/dL (8-26) Creatinine 1.5 mg/dL (0.7-1.3) Estimated GFR (Cockcroft-Gault) 48.6 Glucose Level 281 mg/dL (70-99) Calcium Level 9.0 mg/dL (8.5-10.1) Glucose (Fingerstick) 341 mg/dL (70-99) 319 mg/dL (70-99) 368 mg/dL (70-99) Test 01/28/21 07:01 01/28/21 07:45 Glucose (Fingerstick) 317 mg/dL (70-99) White Blood Count 9.8 x10^3/uL (4.0-11.0) Red Blood Count 5.69 x10^6/uL (4.30-5.70) Hemoglobin 16.6 g/dL (13.0-17.5) Hematocrit 50.1 % (39.0-53.0) Mean Corpuscular Volume 88 fL (79-100) Mean Corpuscular Hemoglobin 29 pg (25-35) Mean Corpuscular Hemoglobin Concent 33 g/dL (31-37) Red Cell Distribution Width 14.4 % (11.5-14.5) Platelet Count 215 x10^3/uL (140-400) Neutrophils (%) (Auto) 73 % (31-73) Lymphocytes (%) (Auto) 19 % (24-48) Monocytes (%) (Auto) 7 % (0-9) Eosinophils (%) (Auto) 1 % (0-3) Basophils (%) (Auto) 1 % (0-3) Neutrophils # (Auto) 7.1 x10^3/uL (1.8-7.7) Lymphocytes # (Auto) 1.8 x10^3/uL (1.0-4.8) Monocytes # (Auto) 0.7 x10^3/uL (0.0-1.1) Eosinophils # (Auto) 0.1 x10^3/uL (0.0-0.7) Basophils # (Auto) 0.1 x10^3/uL (0.0-0.2) Sodium Level 136 mmol/L (136-145) Potassium Level 3.9 mmol/L (3.5-5.1) Chloride Level 97 mmol/L (98-107) Carbon Dioxide Level 34 mmol/L (21-32) Anion Gap 5 (6-14) Blood Urea Nitrogen 26 mg/dL (8-26) Creatinine 1.4 mg/dL (0.7-1.3) Estimated GFR (Cockcroft-Gault) 52.6 Glucose Level 257 mg/dL (70-99) Calcium Level 8.5 mg/dL (8.5-10.1) C-Reactive Protein, Quantitative 8.2 mg/L (0-3.3) Laboratory Tests Test 01/27/21 11:06 01/27/21 16:37 01/27/21 21:16 01/28/21 07:01 Glucose (Fingerstick) 341 mg/dL (70-99) 319 mg/dL (70-99) 368 mg/dL (70-99) 317 mg/dL (70-99) Test 01/28/21 07:45 White Blood Count 9.8 x10^3/uL (4.0-11.0) Red Blood Count 5.69 x10^6/uL (4.30-5.70) Hemoglobin 16.6 g/dL (13.0-17.5) Hematocrit 50.1 % (39.0-53.0) Mean Corpuscular Volume 88 fL (79-100) Mean Corpuscular Hemoglobin 29 pg (25-35) Mean Corpuscular Hemoglobin Concent 33 g/dL (31-37) Red Cell Distribution Width 14.4 % (11.5-14.5) Platelet Count 215 x10^3/uL (140-400) Neutrophils (%) (Auto) 73 % (31-73) Lymphocytes (%) (Auto) 19 % (24-48) Monocytes (%) (Auto) 7 % (0-9) Eosinophils (%) (Auto) 1 % (0-3) Basophils (%) (Auto) 1 % (0-3) Neutrophils # (Auto) 7.1 x10^3/uL (1.8-7.7) Lymphocytes # (Auto) 1.8 x10^3/uL (1.0-4.8) Monocytes # (Auto) 0.7 x10^3/uL (0.0-1.1) Eosinophils # (Auto) 0.1 x10^3/uL (0.0-0.7) Basophils # (Auto) 0.1 x10^3/uL (0.0-0.2) Sodium Level 136 mmol/L (136-145) Potassium Level 3.9 mmol/L (3.5-5.1) Chloride Level 97 mmol/L (98-107) Carbon Dioxide Level 34 mmol/L (21-32) Anion Gap 5 (6-14) Blood Urea Nitrogen 26 mg/dL (8-26) Creatinine 1.4 mg/dL (0.7-1.3) Estimated GFR (Cockcroft-Gault) 52.6 Glucose Level 257 mg/dL (70-99) Calcium Level 8.5 mg/dL (8.5-10.1) C-Reactive Protein, Quantitative 8.2 mg/L (0-3.3) Microbiology 01/22/21 Gram Stain - Final, Complete 01/22/21 Aerobic and Anaerobic Culture - Final, Complete 01/22/21 Antimicrobic Susceptibility - Final, Complete Medications Current Medications Fentanyl Citrate (Fentanyl 2ml Vial) 50 mcg PRN Q2HR PRN IVP PAIN Last administered on 01/23/21at 02:11; Start 01/22/21 at 16:00; Stop 01/23/21 at 03:01; Status DC Aspirin (Aspirin Chewable) 81 mg DAILY PO Last administered on 01/28/21at 08:15; Start 01/23/21 at 09:00 Clonidine HCl (Catapres Tts-2) 1 patch WEEKLY TD Last administered on 01/22/21at 16:26; Start 01/22/21 at 17:00 Docusate Sodium (Colace) 100 mg BID PO Last administered on 01/28/21at 08:14; Start 01/22/21 at 21:00 EZETIMIBE (Zetia) 10 mg DAILY PO Last administered on 01/28/21at 08:15; Start 01/23/21 at 09:00 Hydralazine HCl (Apresoline) 50 mg DAILY PO Last administered on 01/24/21at 08:41; Start 01/23/21 at 09:00; Stop 01/24/21 at 14:47; Status DC Hydrochlorothiazide (Microzide) 12.5 mg DAILY PO Last administered on 01/28/21at 08:15; Start 01/23/21 at 09:00 Acetaminophen/ Hydrocodone Bitart (Lortab 7.5/325) 2 tab PRN Q4HRS PRN PO PAIN Last administered on 01/23/21at 10:25; Start 01/22/21 at 16:00; Stop 01/23/21 at 13:34; Status DC Lisinopril (Prinivil) 20 mg DAILY PO ; Start 01/23/21 at 09:00; Stop 01/23/21 at 06:31; Status DC Methocarbamol (Robaxin) 750 mg TID PRN PRN PO MUSCLE SPASMS Last administered on 01/27/21at 02:45; Start 01/22/21 at 16:00 Atorvastatin Calcium (Lipitor) 80 mg DAILY PO Last administered on 01/28/21at 08:16; Start 01/23/21 at 09:00 Non-Formulary Medication (Empagliflozin (Jardiance)) 25 mg DAILY PO ; Start 01/23/21 at 09:00; Stop 01/23/21 at 18:17; Status DC Febuxostat (Uloric) 80 mg DAILY PO Last administered on 01/28/21at 08:15; Start 01/23/21 at 09:00 Non-Formulary Medication (Icosapent Ethyl (Vascepa)) 1 gm BID PO ; Start 01/22/21 at 21:00; Stop 01/23/21 at 18:18; Status DC Metoprolol Tartrate (Lopressor) 50 mg BID PO Last administered on 01/28/21at 08:17; Start 01/22/21 at 21:00 Probenecid (Benemid) 500 mg BID PO Last administered on 01/28/21at 08:17; Start 01/22/21 at 21:00 Non-Formulary Medication (Semaglutide (Ozempic)) 1 mg WEEKLY SQ ; Start 01/29/21 at 09:00; Status UNV Zolpidem Tartrate (Ambien) 5 mg PRN QHS PRN PO INSOMNIA, MAY REPEAT X1 Last administered on 01/23/21at 21:00; Start 01/22/21 at 16:15 Insulin Human Lispro (HumaLOG) 0-9 UNITS TIDWMEALS SQ Last administered on 01/28/21at 08:32; Start 01/22/21 at 00:00 Dextrose (Dextrose 50%-Water Syringe) 12.5 gm PRN Q15MIN PRN IV SEE COMMENTS; Start 01/22/21 at 20:45 Diphenhydramine HCl (Benadryl) 50 mg PRN Q6HRS PRN IVP ITCHING, 1ST CHOICE Last administered on 01/27/21at 21:20; Start 01/23/21 at 03:00 Diphenhydramine HCl (Benadryl) 100 mg PRN Q6HRS PRN IVP ITCHING, 2ND CHOICE; Start 01/23/21 at 03:00 Morphine Sulfate (Morphine Sulfate) 2 mg PRN Q2HR PRN IVP PAIN Last administered on 01/27/21at 17:06; Start 01/23/21 at 03:00 Famotidine (Pepcid Vial) 20 mg BID IVP Last administered on 01/27/21at 21:08; Start 01/23/21 at 07:00 Methylprednisolone Sodium Succinate (SOLU-Medrol 40MG VIAL) 40 mg Q12HR IV Last administered on 01/25/21at 08:02; Start 01/23/21 at 07:00; Stop 01/25/21 at 09:43; Status DC Daptomycin 640 mg/ Sodium Chloride 50 ml @ 100 mls/hr Q24H IV Last administered on 01/23/21at 11:01; Start 01/23/21 at 10:00; Stop 01/23/21 at 14:59; Status DC Piperacillin Sod/ Tazobactam Sod 3.375 gm/Sodium Chloride 50 ml @ 100 mls/hr Q6HRS IV Last administered on 01/25/21at 06:16; Start 01/23/21 at 10:00; Stop 01/25/21 at 08:23; Status DC Lactobacillus Rhamnosus (Culturelle) 1 cap BID PO Last administered on 01/28/21at 08:16; Start 01/23/21 at 21:00 Oxycodone/ Acetaminophen (Percocet 5/325) 1 tab PRN Q4HRS PRN PO MODERATE PAIN; Start 01/23/21 at 13:45 Oxycodone/ Acetaminophen (Percocet 5/325) 2 tab PRN Q4HRS PRN PO SEVERE PAIN Last administered on 01/28/21at 08:14; Start 01/23/21 at 13:45 Daptomycin 500 mg/ Sodium Chloride 50 ml @ 100 mls/hr Q24H IV Last administered on 01/26/21at 09:03; Start 01/24/21 at 09:00; Stop 01/26/21 at 12:51; Status DC Labetalol HCl (Normodyne Iv Push) 10 mg PRN Q15MIN PRN IVP HYPERTENSION Last administered on 01/28/21at 08:18; Start 01/24/21 at 00:00 Ziprasidone (Geodon) 20 mg PRN Q2HRS PRN PO ANXIETY / AGITATION Last administered on 01/25/21at 10:10; Start 01/24/21 at 00:00 Hydralazine HCl (Apresoline) 25 mg TID PO Last administered on 01/25/21at 08:01; Start 01/24/21 at 00:30; Stop 01/25/21 at 09:37; Status DC Insulin Human Lispro (HumaLOG) 5 units 1X ONCE SQ Last administered on 03/26/20at 00:19; Start 01/24/21 at 00:30; Stop 01/24/21 at 00:31; Status DC Ziprasidone (Geodon Im) 10 mg PRN Q2HRS PRN IM AGITATION Last administered on 01/24/21at 06:05; Start 01/24/21 at 00:15 Lidocaine HCl (Buffered Lidocaine 1%) 3 ml STK-MED ONCE .ROUTE ; Start 01/24/21 at 12:11; Stop 01/24/21 at 12:11; Status DC Lidocaine HCl (Buffered Lidocaine 1%) 3 ml STK-MED ONCE .ROUTE ; Start 01/24/21 at 12:21; Stop 01/24/21 at 12:22; Status DC Lidocaine HCl (Buffered Lidocaine 1%) 6 ml 1X ONCE INJ Last administered on 01/24/21at 13:10; Start 01/24/21 at 12:30; Stop 01/24/21 at 12:34; Status DC Gadoterate Meglumine (Clariscan) 20 ml 1X ONCE IVP Last administered on 01/24/21at 15:55; Start 01/24/21 at 15:30; Stop 01/24/21 at 15:31; Status DC Insulin Human Lispro (HumaLOG) 12 units 1X ONCE SQ Last administered on 01/24/21at 22:05; Start 01/24/21 at 22:00; Stop 01/24/21 at 22:01; Status DC Hydralazine HCl (Apresoline) 50 mg TID PO Last administered on 01/28/21at 08:16; Start 01/25/21 at 14:00 Insulin Glargine (Lantus Syringe) 10 unit BID SQ Last administered on 01/26/21at 23:06; Start 01/25/21 at 11:00; Stop 01/27/21 at 08:13; Status DC Prednisone (Prednisone) 40 mg DAILY PO Last administered on 01/26/21at 08:31; Start 01/26/21 at 09:00; Stop 01/26/21 at 09:15; Status DC Insulin Human Lispro (HumaLOG) 5 units TIDWMEALS SQ Last administered on 01/26/21at 17:00; Start 01/25/21 at 17:00; Stop 01/27/21 at 08:13; Status DC Polyethylene Glycol (miraLAX PACKET) 17 gm PRN Q4HRS PRN PO CONSTIPATION Last administered on 01/27/21at 09:40; Start 01/25/21 at 16:15 Insulin Human Lispro (HumaLOG) 20 units 1X ONCE SQ Last administered on 01/25/21at 18:18; Start 01/25/21 at 18:00; Stop 01/25/21 at 18:03; Status DC Prednisone (Prednisone) 20 mg DAILY PO Last administered on 01/28/21at 08:15; Start 01/27/21 at 09:00 Amlodipine Besylate (Norvasc) 5 mg DAILY PO Last administered on 01/27/21at 07:39; Start 01/26/21 at 09:15; Stop 01/27/21 at 08:12; Status DC Cefazolin Sodium/ Dextrose 50 ml @ 100 mls/hr Q8HRS IV Last administered on 01/28/21at 05:56; Start 01/26/21 at 14:00 Methylprednisolone Sodium Succinate (SOLU-Medrol 125MG VIAL) 125 mg 1X ONCE IV Last administered on 01/26/21at 14:59; Start 01/26/21 at 14:30; Stop 01/26/21 at 14:31; Status DC Amlodipine Besylate (Norvasc) 10 mg DAILY PO Last administered on 01/28/21at 08:15; Start 01/27/21 at 09:00 Insulin Glargine (Lantus Syringe) 15 unit BID SQ Last administered on 01/27/21at 21:15; Start 01/27/21 at 09:00 Insulin Human Lispro (HumaLOG) 10 units TIDWMEALS SQ Last administered on 01/28/21at 08:34; Start 01/27/21 at 12:00 Active Scripts Active Colace (Docusate Sodium) 100 Mg Capsule 100 Mg PO BID 60 Days Methocarbamol 750 Mg Tablet 750 Mg PO TID PRN PRN Reported [V-Go 40 Day Kit ] Units SQ Q1HR 5 CLICKS @ MEALS 2 CLICKS @ SNACKS Freestyle Lite Test Strip (Blood Sugar Diagnostic) 1 Each Strip 1 Strip MC DAILY 30 Days Hydrocodone-Apap 7.5-325 (Hydrocodone Bit/Acetaminophen) 1 Tab Tablet 1-2 Tab PO PRN Q4HRS PRN Vascepa (Icosapent Ethyl) 1 Gm Capsule 1 Gm PO BID Zolpidem Tartrate Er (Zolpidem Tartrate) 12.5 Mg Tab.mphase 12.5 Mg PO PRN QHS PRN Probenecid 500 Mg Tablet 500 Mg PO BID Hydrochlorothiazide Capsule (Hydrochlorothiazide) 12.5 Mg Capsule 12.5 Mg PO DAILY Hydralazine Hcl 50 Mg Tablet 1 Tab PO DAILY Uloric (Febuxostat) 80 Mg Tablet 1 Tab PO DAILY 30 Days Clonidine Tts-2 (Clonidine) 1 Each Patch.tdwk 1 Patch TD WEEKLY Bystolic (Nebivolol Hcl) 20 Mg Tablet 20 Mg PO DAILY Aspirin 81 Mg Tab.chew 1 Tab PO DAILY Zetia (Ezetimibe) 10 Mg Tablet 10 Mg PO DAILY Zestril (Lisinopril) 20 Mg Tablet 1 Tab PO DAILY 30 Days Ozempic (Semaglutide) 1 Mg/0.75 Ml Pen.injctr 1 Mg SQ WEEKLY THURSDAY Lipitor (Atorvastatin Calcium) 80 Mg Tablet 1 Tab PO DAILY Jardiance (Empagliflozin) 25 Mg Tablet 25 Mg PO DAILY Vitals/I & O Vital Sign - Last 24 Hours 01/27/21 01/27/21 01/27/21 01/27/21 11:00 11:51 13:11 14:40 Temp 97.8 97.8 Pulse 85 85 Resp 18 B/P (MAP) 162/102 (122) 162/102 Pulse Ox 96 96 O2 Delivery Room Air Room Air Room Air 01/27/21 01/27/21 01/27/21 01/27/21 15:00 17:06 17:45 19:00 Temp 98.1 97.3 98.1 97.3 Pulse 87 91 Resp 18 18 B/P (MAP) 146/109 (121) 178/112 (134) Pulse Ox 98 98 98 95 O2 Delivery Room Air Room Air Room Air Room Air 01/27/21 01/27/21 01/27/21 01/27/21 19:40 21:08 21:09 21:16 Pulse 91 91 Resp 20 B/P (MAP) 178/112 178/112 O2 Delivery Room Air Room Air 01/27/21 01/27/21 01/28/21 01/28/21 21:46 22:59 01:02 02:54 Temp 98.0 98.0 98.0 98.0 Pulse 86 82 85 Resp B/P (MAP) 181/108 (132) 184/114 147/87 (107) Pulse Ox 96 96 O2 Delivery Room Air Room Air Room Air 01/28/21 01/28/21 01/28/21 01/28/21 07:15 08:15 08:16 08:17 Temp 97.9 97.9 Pulse 81 81 81 81 Resp 20 B/P (MAP) 175/87 (116) 175/87 175/87 175/87 Pulse Ox 96 O2 Delivery Room Air 01/28/21 01/28/21 01/28/21 01/28/21 08:18 08:22 08:29 08:47 Pulse 81 85 81 96 Resp 20 B/P (MAP) 175/87 158/97 (117) 181/118 (139) 168/115 (132) Intake and Output 01/27/21 01/27/21 01/28/21 15:00 23:00 07:00 Intake Total 200 ml 150 ml Output Total 300 ml Balance 200 ml -150 ml Justifications for Admission Other Justification KEISHA CUEVAS [employer] Jan 28, 2021 10:10
[2021-01-28] MEDS ORDERED: oxyCODONE IR 5 MG TABLET PO PRN (10:15)
[2021-01-28] MEDS: INSULIN GLARGINE SYRINGE. SQ SCH ×2 (10:20→22:03)
--- NOTE | 2021-01-28 10:48 | PDOC ---
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 No need for further tapering as patient was only on high-dose steroids for less than a week Recommend to continue with HCTZ, amlodipine, metoprolol and clonidine patch for blood pressure control. Okay to continue with insulin pump as long as there is no other concerns for other sources of infection infection, especially in the skin or soft tissue area Would avoid MICHAEL inhibitor for now, and may consider possibly ARB in the future if blood pressure still poorly controlled as patient is a diabetic and would benefit significantly from a ARB for kidney protection History of Present Illness History of Present Illness 55-year-old male who underwent lumbar hemilaminectomy of the L3-L4 levels on January 09, 2021. He was actually discharged home the following day was doing well. Unfortunately patient had a surgical site complication with infection he was started on Keflex and failed p.o. antibiotics over the weekend. There was increasing pain and serous drainage from incision and he was brought in for further evaluation and IV antibiotics. He was given fentanyl for pain and patient was on lisinopril chronically. Unfortunately patient had angioedema most likely with his use of MICHAEL inhibitors. Infectious diseases consulted for antibiotic management. Patient interviewed bedside and he was doing well. He denies any throat swelling or wheezing or trouble breathing. He does not have any periorbital edema or facial swelling. Only upper portion of his lip is swollen and his tongue is fine. He is speaking in full sentences without any use of his accessory muscles. Denies fevers, confusion, syncope, chest pain, shortness of breath, abdominal pain, diarrhea or hematuria. 01/24/2021 Patient had an acute agitative and confusion episode last night. Patient ripped out the sharps container from the wall. He appears to be close to his baseline today and appears lethargic but talking on the phone. Sitting on the recliner and not agitated at this time. No fevers somewhat tachycardic and no hypotensive episodes. Swelling of his upper lip appears to be improved. No redness or swelling. Patient will likely benefit from a PICC line placement for long-term IV antibiotics. Will defer the timing and course to infectious disease. Patient's chart, labs, images were reviewed and discussed with RN 01/25/2021 No acute events overnight. Patient is ambulating through the hallways back pain. There is clear drainage on the dressings which will need to be switched out. Blood pressures have been uncontrolled with systolic blood pressures from 1 60-1 90. He does have IV antihypertensive medications as needed. I have increased his hydralazine to 50 mg 3 times daily. His sugars have also been greater than 300 and as high as 400. I have added a long-acting Lantus 10 units twice daily and keeping him on regular insulin sliding scale. Patient usually does have an insulin pump in which he had his friend bring. However due to his staff aureus infection I would recommend him not to place the insulin pump at this time and only administer insulin as needed and do subcu injections. I have also decreased his Solu-Medrol to a prednisone taper at 40 mg daily for now. 01/26/2021 No acute events overnight. Patient seen and examined bedside. Resting comfortably. Appears pain is well controlled. Blood pressures have improved. Will decrease his prednisone to 20 mg daily. Continue his 5 units 3 times daily with meals of lispro and long-acting glargine 10 units twice daily with sliding scale high intensity. Patient's chart, labs, images were reviewed and discussed with RN 01/27/2021 No acute events overnight. Patient yesterday had some swelling around the eyes and I gave a dose of pulse IV steroids. Swelling and irritation or hives around the periorbital region has improved. Patient has some drug-seeking behavior which she was requiring only IV pain medications. Patient seen and examined bedside. Patient was using his cell phone at the time and appeared to be content. Not in any active pain at the time. No acute agitative episodes overnight. Wound is appearing improved without much drainage. Continue to taper steroids and continued IV antibiotics per ID. I have increased her glargine to 15 units twice daily and increased his premale lispro to 10 units before meals. Patient's chart, labs, images were reviewed and discussed with RN Vitals/I&O Vitals/I&O: Vital Signs Date Time Temp Pulse Resp B/P (MAP) Pulse Ox O2 Delivery O2 Flow Rate FiO2 01/28/21 08:47 96 20 168/115 (132) 01/28/21 07:15 97.9 96 Room Air 97.9 I & O 01/27/21 01/27/21 01/28/21 15:00 23:00 07:00 Intake Total 200 ml 150 ml Output Total 300 ml Balance 200 ml -150 ml Physical Exam Physical Exam: GENERAL: Alert, oriented gentleman, not in distress. VITAL SIGNS: Stable. HEENT: Both pupils are round and reacting. No conjunctival lesion. No lesion in the mouth. NECK: Supple. No JVP. No lymphadenopathy. LUNGS: Clear. HEART: S1, S2, regular. ABDOMEN: Soft, nontender. No organomegaly. EXTREMITIES: No edema, cyanosis. SKIN: The patient does have some hives from fentanyl and lip swelling. SPINE: There is incision with drainage present. NEUROLOGIC: The patient is alert, awake and appropriate. No focal neurologic deficit. General: Alert, Oriented X3, Cooperative, No acute distress, Other (facial swelling improved) Heart: Regular rate Lungs: Clear Abdomen: Normal bowel sounds Extremities: No clubbing Skin: Other (dressing changed per RN this morning, some yellow serous drainage noted) Labs Labs: Laboratory Tests Test 01/27/21 11:06 01/27/21 16:37 01/27/21 21:16 01/28/21 07:01 Glucose (Fingerstick) 341 mg/dL (70-99) 319 mg/dL (70-99) 368 mg/dL (70-99) 317 mg/dL (70-99) Test 01/28/21 07:45 White Blood Count 9.8 x10^3/uL (4.0-11.0) Red Blood Count 5.69 x10^6/uL (4.30-5.70) Hemoglobin 16.6 g/dL (13.0-17.5) Hematocrit 50.1 % (39.0-53.0) Mean Corpuscular Volume 88 fL (79-100) Mean Corpuscular Hemoglobin 29 pg (25-35) Mean Corpuscular Hemoglobin Concent 33 g/dL (31-37) Red Cell Distribution Width 14.4 % (11.5-14.5) Platelet Count 215 x10^3/uL (140-400) Neutrophils (%) (Auto) 73 % (31-73) Lymphocytes (%) (Auto) 19 % (24-48) Monocytes (%) (Auto) 7 % (0-9) Eosinophils (%) (Auto) 1 % (0-3) Basophils (%) (Auto) 1 % (0-3) Neutrophils # (Auto) 7.1 x10^3/uL (1.8-7.7) Lymphocytes # (Auto) 1.8 x10^3/uL (1.0-4.8) Monocytes # (Auto) 0.7 x10^3/uL (0.0-1.1) Eosinophils # (Auto) 0.1 x10^3/uL (0.0-0.7) Basophils # (Auto) 0.1 x10^3/uL (0.0-0.2) Erythrocyte Sedimentation Rate 6 (0-15) Sodium Level 136 mmol/L (136-145) Potassium Level 3.9 mmol/L (3.5-5.1) Chloride Level 97 mmol/L (98-107) Carbon Dioxide Level 34 mmol/L (21-32) Anion Gap 5 (6-14) Blood Urea Nitrogen 26 mg/dL (8-26) Creatinine 1.4 mg/dL (0.7-1.3) Estimated GFR (Cockcroft-Gault) 52.6 Glucose Level 257 mg/dL (70-99) Calcium Level 8.5 mg/dL (8.5-10.1) C-Reactive Protein, Quantitative 8.2 mg/L (0-3.3) Comment Review of Relevant I have reviewed the following items lashaun (where applicable) has been applied. Medications: Current Medications Medications (Trade) Dose Ordered Sig/Zain Route PRN Reason Start Time Stop Time Status Last Admin Dose Admin Insulin Human Lispro (HumaLOG) 10 units TIDWMEALS SQ 01/27/21 12:00 01/28/21 08:34 Justifications for Admission Other Justification BRIANA CHU MD Jan 28, 2021 10:48
[2021-01-28] MEDS: oxyCODONE IR 5 MG TABLET PO PRN ×3 (11:45→21:56)
--- NOTE | 2021-01-28 12:52 | NUR ---
Dr. Pardo regarding blood sugar 452. to give a total 15 units NovoLog insulin for sliding scale and increase Lantus 5 units bid(20 units total)
[2021-01-28] MEDS ORDERED: INSULIN LISPRO 300 UNITS/3 ML VIAL. SQ ONE (13:00)
[2021-01-28] MEDS ORDERED: INSULIN REGULAR 100 UNIT/ML 3ML VIAL. IV ONE (13:00)
[2021-01-28] MEDS: MORPHINE SULFATE 2 MG/ML INJ. IVP PRN (14:50)
[2021-01-28] MEDS: METHOCARBAMOL 750 MG TABLET PO PRN (17:58)
--- NOTE | 2021-01-28 18:00 | NUR ---
have given at least 3 doses of labetalol for elevated blood pressure and had to call for at least 2 blood sugars greater that 350. dressings have been changed at 3 times today. drainage remains unchanged
[2021-01-28] MEDS: FAMOTIDINE 20 MG TABLET. PO SCH (20:47)
[2021-01-28] MEDS: diphenhydrAMINE 50 MG/ML VIAL IVP PRN (23:11)
[2021-01-29 03:08] VITALS: BP 159/90
[2021-01-29] MEDS: oxyCODONE IR 5 MG TABLET PO PRN ×3 (05:04→21:39)
[2021-01-29 06:18] LABS: CALCIUM 8.7 mg/dL (8.5-10.1); CREATININE 1.3 mg/dL (0.7-1.3); GFR 57.3
[2021-01-29 06:42] LABS: BASO # 0.1 x10^3/uL (0.0-0.2); BASO % 0 % (0-3); EOS # 0.2 x10^3/uL (0.0-0.7); EOS % 2 % (0-3); HEMATOCRIT 52.7 % (39.0-53.0); HEMOGLOBIN 17.3 g/dL (13.0-17.5); LYMPH # 2.2 x10^3/uL (1.0-4.8); LYMPH % 18 % (24-48); MEAN CORPUSCULAR HEMOGLOBIN 29 pg (25-35); MEAN CORPUSCULAR HGB CONC 33 g/dL (31-37); MEAN CORPUSCULAR VOLUME 88 fL (79-100); MONO # 0.8 x10^3/uL (0.0-1.1); MONO % 6 % (0-9); NEUT # 9.3 x10^3/uL (1.8-7.7); NEUT % 74 % (31-73); PLATELET COUNT 160 x10^3/uL (140-400); RED CELL DISTRIBUTION WIDTH 14.7 % (11.5-14.5); WHITE BLOOD COUNT 12.6 x10^3/uL (4.0-11.0)
[2021-01-29 07:00] VITALS: BP 173/104
[2021-01-29] MEDS: diphenhydrAMINE 50 MG/ML VIAL IVP PRN ×2 (08:39→20:05)
[2021-01-29] MEDS: ATORVASTATIN CALCIUM 40 MG TABLET. PO SCH (08:40)
[2021-01-29] MEDS: LACTOBACILLUS RHAMNOSUS GG 1 CAPSULE. PO SCH ×2 (08:40→20:01)
[2021-01-29] MEDS: predniSONE 20 MG TABLET PO SCH (08:40)
[2021-01-29] MEDS: EZETIMIBE 10 MG TABLET. PO SCH (08:40)
[2021-01-29] MEDS: FEBUXOSTAT 40 MG TABLET PO SCH (08:40)
[2021-01-29] MEDS: ASPIRIN CHEWABLE 81 MG TABLET. PO SCH (08:41)
[2021-01-29] MEDS: DOCUSATE SODIUM 100 MG CAPSULE. PO SCH ×2 (08:41→20:04)
[2021-01-29] MEDS: METOPROLOL TART IMMED RELEASE 50 MG TABLET. PO SCH ×2 (08:41→20:02)
[2021-01-29] MEDS: hydroCHLOROthiazide 12.5 MG CAPSULE PO SCH (08:41)
[2021-01-29] MEDS: cloNIDine TTS-2 1 PATCH PATCH TD SCH (08:42)
[2021-01-29] MEDS: FAMOTIDINE 20 MG TABLET. PO SCH ×2 (08:42→20:02)
[2021-01-29] MEDS: PROBENECID 500 MG TABLET PO SCH ×2 (08:42→20:01)
[2021-01-29] MEDS: INSULIN GLARGINE SYRINGE. SQ SCH ×2 (08:46→21:42)
[2021-01-29] MEDS: MORPHINE SULFATE 2 MG/ML INJ. IVP PRN ×3 (08:49→12:45)
[2021-01-29] MEDS: INSULIN LISPRO 300 UNITS/3 ML VIAL. SQ SCH ×6 (08:50→17:40)
--- NOTE | 2021-01-29 08:52 | PDOC ---
Infectious Disease Note Subjective: Subjective Patient complains of rash which started around the anterior neck and now has developed a large welt on the back of the neck So has developed some puffiness around his eyes for which he took Benadryl with some relief It has been itching His back pain has been aggravated since yesterday He denies any mucosal involvement Denies any fever, chills, nausea, vomiting, diarrhea, abdominal pain, vision disturbance Vital Signs: Vital Signs Vital Signs Date Time Temp Pulse Resp B/P (MAP) Pulse Ox O2 Delivery O2 Flow Rate FiO2 01/29/21 07:00 98.0 75 16 173/104 (127) 97 Room Air 98.0 Physical Exam: PHYSICAL EXAM GENERAL: Alert, oriented gentleman, not in distress. HEENT: Both pupils are round and reacting. No conjunctival lesion. No lesion in the mouth. Some puffiness around the eyes NECK: Supple. No JVP. No lymphadenopathy. LUNGS: Clear. HEART: S1, S2, regular. ABDOMEN: Soft, nontender. No organomegaly. EXTREMITIES: No edema, cyanosis. SKIN: The patient does have some hives around his neck and anterior neck SPINE: Incision with dressing intact, dry not taken down NEUROLOGIC: The patient is alert, awake and appropriate. No focal neurologic deficit. Medications: Inpatient Meds: Medications reviewed. Labs: Lab Laboratory Tests Test 01/28/21 11:35 01/28/21 17:24 01/28/21 21:30 01/29/21 05:30 Glucose (Fingerstick) 452 mg/dL (70-99) 428 mg/dL (70-99) 276 mg/dL (70-99) Sodium Level 135 mmol/L (136-145) Potassium Level 4.0 mmol/L (3.5-5.1) Chloride Level 95 mmol/L (98-107) Carbon Dioxide Level 32 mmol/L (21-32) Anion Gap 8 (6-14) Blood Urea Nitrogen 25 mg/dL (8-26) Creatinine 1.3 mg/dL (0.7-1.3) Estimated GFR (Cockcroft-Gault) 57.3 Glucose Level 196 mg/dL (70-99) Calcium Level 8.7 mg/dL (8.5-10.1) Test 01/29/21 06:30 01/29/21 07:10 White Blood Count 12.6 x10^3/uL (4.0-11.0) Red Blood Count 6.00 x10^6/uL (4.30-5.70) Hemoglobin 17.3 g/dL (13.0-17.5) Hematocrit 52.7 % (39.0-53.0) Mean Corpuscular Volume 88 fL (79-100) Mean Corpuscular Hemoglobin 29 pg (25-35) Mean Corpuscular Hemoglobin Concent 33 g/dL (31-37) Red Cell Distribution Width 14.7 % (11.5-14.5) Platelet Count 160 x10^3/uL (140-400) Neutrophils (%) (Auto) 74 % (31-73) Lymphocytes (%) (Auto) 18 % (24-48) Monocytes (%) (Auto) 6 % (0-9) Eosinophils (%) (Auto) 2 % (0-3) Basophils (%) (Auto) 0 % (0-3) Neutrophils # (Auto) 9.3 x10^3/uL (1.8-7.7) Lymphocytes # (Auto) 2.2 x10^3/uL (1.0-4.8) Monocytes # (Auto) 0.8 x10^3/uL (0.0-1.1) Eosinophils # (Auto) 0.2 x10^3/uL (0.0-0.7) Basophils # (Auto) 0.1 x10^3/uL (0.0-0.2) Glucose (Fingerstick) 202 mg/dL (70-99) Objective: Assessment: 1. Postsurgical spine infection. MSSA CRP 8.2, ESR 6 2. Status post right-sided hemilaminotomy and microdiscectomy L3-L4 done on 01/09/2021. 3. Diabetes mellitus. 4. Hypertension. 5. Leukocytosis. 6. Renal insufficiency. 7. MICHAEL inhibitor induced angioedema 8. 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
[2021-01-29] MEDS ORDERED: NON FORMULARY ITEM (Semaglutide (Ozempic) 1 MG) SQ SCH (09:00)
[2021-01-29 11:00] VITALS: BP 164/104
--- NOTE | 2021-01-29 11:35 | PDOC ---
[facility] PROGRESS NOTE Date of Service DOS: DATE: 01/29/21 TIME: 11:34 Chief Complaint Chief Complaint MICHAEL inhibitor induced angioedema with normal C4 and C1 esterase levels Postoperative wound infection Okay with discharge to home with home health Recommend to continue prednisone for another 2 days at 20 mg daily. No need for further tapering as patient was only on high-dose steroids for less than a week Recommend to continue with HCTZ, amlodipine, metoprolol and clonidine patch for blood pressure control. Okay to continue with insulin pump as long as there is no other concerns for other sources of infection infection, especially in the skin or soft tissue area Would avoid MICHAEL inhibitor for now, and may consider possibly ARB in the future if blood pressure still poorly controlled as patient is a diabetic and would benefit significantly from a ARB for kidney protection History of Present Illness History of Present Illness 55-year-old male who underwent lumbar hemilaminectomy of the L3-L4 levels on January 09, 2021. He was actually discharged home the following day was doing well. Unfortunately patient had a surgical site complication with infection he was started on Keflex and failed p.o. antibiotics over the weekend. There was increasing pain and serous drainage from incision and he was brought in for further evaluation and IV antibiotics. He was given fentanyl for pain and patient was on lisinopril chronically. Unfortunately patient had angioedema most likely with his use of MICHAEL inhibitors. Infectious diseases consulted for antibiotic management. Patient interviewed bedside and he was doing well. He denies any throat swelling or wheezing or trouble breathing. He does not have any periorbital edema or facial swelling. Only upper portion of his lip is swollen and his tongue is fine. He is speaking in full sentences without any use of his accessory muscles. Denies fevers, confusion, syncope, chest pain, shortness of breath, abdominal pain, diarrhea or hematuria. 01/24/2021 Patient had an acute agitative and confusion episode last night. Patient ripped out the sharps container from the wall. He appears to be close to his baseline today and appears lethargic but talking on the phone. Sitting on the recliner and not agitated at this time. No fevers somewhat tachycardic and no hypotensive episodes. Swelling of his upper lip appears to be improved. No redness or swelling. Patient will likely benefit from a PICC line placement for long-term IV antibiotics. Will defer the timing and course to infectious disease. Patient's chart, labs, images were reviewed and discussed with RN 01/25/2021 No acute events overnight. Patient is ambulating through the hallways back pain. There is clear drainage on the dressings which will need to be switched out. Blood pressures have been uncontrolled with systolic blood pressures from 1 60-1 90. He does have IV antihypertensive medications as needed. I have increased his hydralazine to 50 mg 3 times daily. His sugars have also been greater than 300 and as high as 400. I have added a long-acting Lantus 10 units twice daily and keeping him on regular insulin sliding scale. Patient usually does have an insulin pump in which he had his friend bring. However due to his staff aureus infection I would recommend him not to place the insulin pump at this time and only administer insulin as needed and do subcu injections. I have also decreased his Solu-Medrol to a prednisone taper at 40 mg daily for now. 01/26/2021 No acute events overnight. Patient seen and examined bedside. Resting comfortably. Appears pain is well controlled. Blood pressures have improved. Will decrease his prednisone to 20 mg daily. Continue his 5 units 3 times daily with meals of lispro and long-acting glargine 10 units twice daily with sliding scale high intensity. Patient's chart, labs, images were reviewed and discussed with RN 01/27/2021 No acute events overnight. Patient yesterday had some swelling around the eyes and I gave a dose of pulse IV steroids. Swelling and irritation or hives around the periorbital region has improved. Patient has some drug-seeking behavior which she was requiring only IV pain medications. Patient seen and examined bedside. Patient was using his cell phone at the time and appeared to be content. Not in any active pain at the time. No acute agitative episodes overnight. Wound is appearing improved without much drainage. Continue to taper steroids and continued IV antibiotics per ID. I have increased her glargine to 15 units twice daily and increased his premale lispro to 10 units before meals. Patient's chart, labs, images were reviewed and discussed with RN 01/29/2021 No acute events overnight. Patient seen and examined bedside. Resting comfortably in bed. Blood pressures continues to be elevated in the 170s to 160s systolics. I have increased his hydralazine to 75 mg 3 times daily. I have stopped his prednisone. Sugars have been better controlled. Patient's chart, labs, images were reviewed and discussed with RN Vitals/I&O Vitals/I&O: Vital Signs Date Time Temp Pulse Resp B/P (MAP) Pulse Ox O2 Delivery O2 Flow Rate FiO2 01/29/21 11:00 98.2 86 16 164/104 (124) 95 Room Air 98.2 I & O 01/28/21 01/28/21 01/29/21 15:00 23:00 07:00 Intake Total 200 ml 200 ml Output Total 1 ml Balance 199 ml 200 ml Physical Exam Physical Exam: GENERAL: Alert, oriented gentleman, not in distress. HEENT: Both pupils are round and reacting. No conjunctival lesion. No lesion in the mouth. Some puffiness around the eyes NECK: Supple. No JVP. No lymphadenopathy. LUNGS: Clear. HEART: S1, S2, regular. ABDOMEN: Soft, nontender. No organomegaly. EXTREMITIES: No edema, cyanosis. SKIN: The patient does have some hives around his neck and anterior neck SPINE: Incision with dressing intact, dry not taken down NEUROLOGIC: The patient is alert, awake and appropriate. No focal neurologic deficit. General: Alert, Oriented X3, Cooperative, No acute distress, Other (facial swelling improved) Heart: Regular rate Lungs: Clear Abdomen: Normal bowel sounds Extremities: No clubbing Skin: Other (dressing changed per RN this morning, some yellow serous drainage noted) Labs Labs: Laboratory Tests Test 01/28/21 11:35 01/28/21 17:24 01/28/21 21:30 01/29/21 05:30 Glucose (Fingerstick) 452 mg/dL (70-99) 428 mg/dL (70-99) 276 mg/dL (70-99) Sodium Level 135 mmol/L (136-145) Potassium Level 4.0 mmol/L (3.5-5.1) Chloride Level 95 mmol/L (98-107) Carbon Dioxide Level 32 mmol/L (21-32) Anion Gap 8 (6-14) Blood Urea Nitrogen 25 mg/dL (8-26) Creatinine 1.3 mg/dL (0.7-1.3) Estimated GFR (Cockcroft-Gault) 57.3 Glucose Level 196 mg/dL (70-99) Calcium Level 8.7 mg/dL (8.5-10.1) Test 01/29/21 06:30 01/29/21 07:10 01/29/21 11:25 White Blood Count 12.6 x10^3/uL (4.0-11.0) Red Blood Count 6.00 x10^6/uL (4.30-5.70) Hemoglobin 17.3 g/dL (13.0-17.5) Hematocrit 52.7 % (39.0-53.0) Mean Corpuscular Volume 88 fL (79-100) Mean Corpuscular Hemoglobin 29 pg (25-35) Mean Corpuscular Hemoglobin Concent 33 g/dL (31-37) Red Cell Distribution Width 14.7 % (11.5-14.5) Platelet Count 160 x10^3/uL (140-400) Neutrophils (%) (Auto) 74 % (31-73) Lymphocytes (%) (Auto) 18 % (24-48) Monocytes (%) (Auto) 6 % (0-9) Eosinophils (%) (Auto) 2 % (0-3) Basophils (%) (Auto) 0 % (0-3) Neutrophils # (Auto) 9.3 x10^3/uL (1.8-7.7) Lymphocytes # (Auto) 2.2 x10^3/uL (1.0-4.8) Monocytes # (Auto) 0.8 x10^3/uL (0.0-1.1) Eosinophils # (Auto) 0.2 x10^3/uL (0.0-0.7) Basophils # (Auto) 0.1 x10^3/uL (0.0-0.2) Glucose (Fingerstick) 202 mg/dL (70-99) 206 mg/dL (70-99) Comment Review of Relevant I have reviewed the following items lashaun (where applicable) has been applied. Medications: Current Medications Medications (Trade) Dose Ordered Sig/Zain Route PRN Reason Start Time Stop Time Status Last Admin Dose Admin Amlodipine Besylate (Norvasc) 10 mg DAILY PO 01/29/21 09:00 01/29/21 08:40 Famotidine (Pepcid) 20 mg BID PO 01/28/21 21:00 01/29/21 08:42 Insulin Glargine (Lantus Syringe) 20 unit BID SQ 01/28/21 21:00 01/29/21 08:46 Insulin Human Lispro (HumaLOG) 20 units TIDWMEALS SQ 01/28/21 18:00 01/29/21 08:51 Justifications for Admission Other Justification BRIANA CHU MD Jan 29, 2021 11:35
--- NOTE | 2021-01-29 12:10 | PDOC ---
PROGRESS NOTES Date of Service DATE: 01/29/21 TIME: 12:01 Subjective Subjective up ambulating in room developed rash on neck and upper back blood glucose improved back pain, controlled with medication Objective Objective Vital Signs Date Time Temp Pulse Resp B/P (MAP) Pulse Ox O2 Delivery O2 Flow Rate FiO2 01/29/21 11:45 86 164/104 01/29/21 11:00 98.2 16 95 Room Air 98.2 Intake and Output 01/29/21 07:00 Intake Total 400 ml Output Total 1 ml Balance 399 ml Intake Oral 400 ml Stool Total 1 ml # Voids 2 Physical Exam General: Alert, Oriented X3, Cooperative, No acute distress Neuro: Normal speech Skin: Other (dressing recently changed, clear yellow drainge reported) Plan Plan of Care antibiotics were changed due to rash, will monitor continue wound care activity as tolerated hopefully dc with tomorrow Comment Review of Relevant I have reviewed the following items lashaun (where applicable) has been applied. Labs Laboratory Tests Test 01/27/21 16:37 01/27/21 21:16 01/28/21 07:01 01/28/21 07:45 Glucose (Fingerstick) 319 mg/dL (70-99) 368 mg/dL (70-99) 317 mg/dL (70-99) White Blood Count 9.8 x10^3/uL (4.0-11.0) Red Blood Count 5.69 x10^6/uL (4.30-5.70) Hemoglobin 16.6 g/dL (13.0-17.5) Hematocrit 50.1 % (39.0-53.0) Mean Corpuscular Volume 88 fL (79-100) Mean Corpuscular Hemoglobin 29 pg (25-35) Mean Corpuscular Hemoglobin Concent 33 g/dL (31-37) Red Cell Distribution Width 14.4 % (11.5-14.5) Platelet Count 215 x10^3/uL (140-400) Neutrophils (%) (Auto) 73 % (31-73) Lymphocytes (%) (Auto) 19 % (24-48) Monocytes (%) (Auto) 7 % (0-9) Eosinophils (%) (Auto) 1 % (0-3) Basophils (%) (Auto) 1 % (0-3) Neutrophils # (Auto) 7.1 x10^3/uL (1.8-7.7) Lymphocytes # (Auto) 1.8 x10^3/uL (1.0-4.8) Monocytes # (Auto) 0.7 x10^3/uL (0.0-1.1) Eosinophils # (Auto) 0.1 x10^3/uL (0.0-0.7) Basophils # (Auto) 0.1 x10^3/uL (0.0-0.2) Erythrocyte Sedimentation Rate 6 (0-15) Sodium Level 136 mmol/L (136-145) Potassium Level 3.9 mmol/L (3.5-5.1) Chloride Level 97 mmol/L (98-107) Carbon Dioxide Level 34 mmol/L (21-32) Anion Gap 5 (6-14) Blood Urea Nitrogen 26 mg/dL (8-26) Creatinine 1.4 mg/dL (0.7-1.3) Estimated GFR (Cockcroft-Gault) 52.6 Glucose Level 257 mg/dL (70-99) Calcium Level 8.5 mg/dL (8.5-10.1) C-Reactive Protein, Quantitative 8.2 mg/L (0-3.3) Test 01/28/21 11:35 01/28/21 17:24 01/28/21 21:30 01/29/21 05:30 Glucose (Fingerstick) 452 mg/dL (70-99) 428 mg/dL (70-99) 276 mg/dL (70-99) Sodium Level 135 mmol/L (136-145) Potassium Level 4.0 mmol/L (3.5-5.1) Chloride Level 95 mmol/L (98-107) Carbon Dioxide Level 32 mmol/L (21-32) Anion Gap 8 (6-14) Blood Urea Nitrogen 25 mg/dL (8-26) Creatinine 1.3 mg/dL (0.7-1.3) Estimated GFR (Cockcroft-Gault) 57.3 Glucose Level 196 mg/dL (70-99) Calcium Level 8.7 mg/dL (8.5-10.1) Test 01/29/21 06:30 01/29/21 07:10 01/29/21 11:25 White Blood Count 12.6 x10^3/uL (4.0-11.0) Red Blood Count 6.00 x10^6/uL (4.30-5.70) Hemoglobin 17.3 g/dL (13.0-17.5) Hematocrit 52.7 % (39.0-53.0) Mean Corpuscular Volume 88 fL (79-100) Mean Corpuscular Hemoglobin 29 pg (25-35) Mean Corpuscular Hemoglobin Concent 33 g/dL (31-37) Red Cell Distribution Width 14.7 % (11.5-14.5) Platelet Count 160 x10^3/uL (140-400) Neutrophils (%) (Auto) 74 % (31-73) Lymphocytes (%) (Auto) 18 % (24-48) Monocytes (%) (Auto) 6 % (0-9) Eosinophils (%) (Auto) 2 % (0-3) Basophils (%) (Auto) 0 % (0-3) Neutrophils # (Auto) 9.3 x10^3/uL (1.8-7.7) Lymphocytes # (Auto) 2.2 x10^3/uL (1.0-4.8) Monocytes # (Auto) 0.8 x10^3/uL (0.0-1.1) Eosinophils # (Auto) 0.2 x10^3/uL (0.0-0.7) Basophils # (Auto) 0.1 x10^3/uL (0.0-0.2) Glucose (Fingerstick) 202 mg/dL (70-99) 206 mg/dL (70-99) Laboratory Tests Test 01/28/21 17:24 01/28/21 21:30 01/29/21 05:30 01/29/21 06:30 Glucose (Fingerstick) 428 mg/dL (70-99) 276 mg/dL (70-99) Sodium Level 135 mmol/L (136-145) Potassium Level 4.0 mmol/L (3.5-5.1) Chloride Level 95 mmol/L (98-107) Carbon Dioxide Level 32 mmol/L (21-32) Anion Gap 8 (6-14) Blood Urea Nitrogen 25 mg/dL (8-26) Creatinine 1.3 mg/dL (0.7-1.3) Estimated GFR (Cockcroft-Gault) 57.3 Glucose Level 196 mg/dL (70-99) Calcium Level 8.7 mg/dL (8.5-10.1) White Blood Count 12.6 x10^3/uL (4.0-11.0) Red Blood Count 6.00 x10^6/uL (4.30-5.70) Hemoglobin 17.3 g/dL (13.0-17.5) Hematocrit 52.7 % (39.0-53.0) Mean Corpuscular Volume 88 fL (79-100) Mean Corpuscular Hemoglobin 29 pg (25-35) Mean Corpuscular Hemoglobin Concent 33 g/dL (31-37) Red Cell Distribution Width 14.7 % (11.5-14.5) Platelet Count 160 x10^3/uL (140-400) Neutrophils (%) (Auto) 74 % (31-73) Lymphocytes (%) (Auto) 18 % (24-48) Monocytes (%) (Auto) 6 % (0-9) Eosinophils (%) (Auto) 2 % (0-3) Basophils (%) (Auto) 0 % (0-3) Neutrophils # (Auto) 9.3 x10^3/uL (1.8-7.7) Lymphocytes # (Auto) 2.2 x10^3/uL (1.0-4.8) Monocytes # (Auto) 0.8 x10^3/uL (0.0-1.1) Eosinophils # (Auto) 0.2 x10^3/uL (0.0-0.7) Basophils # (Auto) 0.1 x10^3/uL (0.0-0.2) Test 01/29/21 07:10 01/29/21 11:25 Glucose (Fingerstick) 202 mg/dL (70-99) 206 mg/dL (70-99) Microbiology 01/22/21 Gram Stain - Final, Complete 01/22/21 Aerobic and Anaerobic Culture - Final, Complete 01/22/21 Antimicrobic Susceptibility - Final, Complete Medications Current Medications Fentanyl Citrate (Fentanyl 2ml Vial) 50 mcg PRN Q2HR PRN IVP PAIN Last administered on 01/23/21at 02:11; Start 01/22/21 at 16:00; Stop 01/23/21 at 03:01; Status DC Aspirin (Aspirin Chewable) 81 mg DAILY PO Last administered on 01/29/21 08:41; Start 01/23/21 at 09:00 Clonidine HCl (Catapres Tts-2) 1 patch WEEKLY TD Last administered on 01/29/21at 08:42; Start 01/22/21 at 17:00 Docusate Sodium (Colace) 100 mg BID PO Last administered on 01/29/21at 08:41; Start 01/22/21 at 21:00 EZETIMIBE (Zetia) 10 mg DAILY PO Last administered on 01/29/21at 08:40; Start 01/23/21 at 09:00 Hydralazine HCl (Apresoline) 50 mg DAILY PO Last administered on 01/24/21at 08:41; Start 01/23/21 at 09:00; Stop 01/24/21 at 14:47; Status DC Hydrochlorothiazide (Microzide) 12.5 mg DAILY PO Last administered on 01/29/21at 08:41; Start 01/23/21 at 09:00 Acetaminophen/ Hydrocodone Bitart (Lortab 7.5/325) 2 tab PRN Q4HRS PRN PO PAIN Last administered on 01/23/21at 10:25; Start 01/22/21 at 16:00; Stop 01/23/21 at 13:34; Status DC Lisinopril (Prinivil) 20 mg DAILY PO ; Start 01/23/21 at 09:00; Stop 01/23/21 at 06:31; Status DC Methocarbamol (Robaxin) 750 mg TID PRN PRN PO MUSCLE SPASMS Last administered on 01/28/21at 17:58; Start 01/22/21 at 16:00 Atorvastatin Calcium (Lipitor) 80 mg DAILY PO Last administered on 01/29/21at 08:40; Start 01/23/21 at 09:00 Non-Formulary Medication (Empagliflozin (Jardiance)) 25 mg DAILY PO ; Start 01/23/21 at 09:00; Stop 01/23/21 at 18:17; Status DC Febuxostat (Uloric) 80 mg DAILY PO Last administered on 01/29/21at 08:40; Start 01/23/21 at 09:00 Non-Formulary Medication (Icosapent Ethyl (Vascepa)) 1 gm BID PO ; Start 01/22/21 at 21:00; Stop 01/23/21 at 18:18; Status DC Metoprolol Tartrate (Lopressor) 50 mg BID PO Last administered on 01/29/21at 08:41; Start 01/22/21 at 21:00 Probenecid (Benemid) 500 mg BID PO Last administered on 01/29/21at 08:42; Start 01/22/21 at 21:00 Non-Formulary Medication (Semaglutide (Ozempic)) 1 mg WEEKLY SQ ; Start 01/29/21 at 09:00; Status UNV Zolpidem Tartrate (Ambien) 5 mg PRN QHS PRN PO INSOMNIA, MAY REPEAT X1 Last administered on 01/23/21at 21:00; Start 01/22/21 at 16:15 Insulin Human Lispro (HumaLOG) 0-9 UNITS TIDWMEALS SQ Last administered on 01/08 05/27at 08:50; Start 01/22/21 at 00:00 Dextrose (Dextrose 50%-Water Syringe) 12.5 gm PRN Q15MIN PRN IV SEE COMMENTS; Start 01/22/21 at 20:45 Diphenhydramine HCl (Benadryl) 50 mg PRN Q6HRS PRN IVP ITCHING, 1ST CHOICE Last administered on 01/29/21at 08:39; Start 01/23/21 at 03:00 Diphenhydramine HCl (Benadryl) 100 mg PRN Q6HRS PRN IVP ITCHING, 2ND CHOICE; Start 01/23/21 at 03:00 Morphine Sulfate (Morphine Sulfate) 2 mg PRN Q2HR PRN IVP PAIN Last administered on 01/29/21at 08:49; Start 01/23/21 at 03:00 Famotidine (Pepcid Vial) 20 mg BID IVP Last administered on 01/28/21at 09:00; Start 01/23/21 at 07:00; Stop 01/28/21 at 12:26; Status DC Methylprednisolone Sodium Succinate (SOLU-Medrol 40MG VIAL) 40 mg Q12HR IV Last administered on 01/25/21at 08:02; Start 01/23/21 at 07:00; Stop 01/25/21 at 09:43; Status DC Daptomycin 640 mg/ Sodium Chloride 50 ml @ 100 mls/hr Q24H IV Last administered on 01/23/21at 11:01; Start 01/23/21 at 10:00; Stop 01/23/21 at 14:59; Status DC Piperacillin Sod/ Tazobactam Sod 3.375 gm/Sodium Chloride 50 ml @ 100 mls/hr Q6HRS IV Last administered on 01/25/21at 06:16; Start 01/23/21 at 10:00; Stop 01/25/21 at 08:23; Status DC Lactobacillus Rhamnosus (Culturelle) 1 cap BID PO Last administered on 01/29/21at 08:40; Start 01/23/21 at 21:00 Oxycodone/ Acetaminophen (Percocet 5/325) 1 tab PRN Q4HRS PRN PO MODERATE PAIN; Start 01/23/21 at 13:45; Stop 01/28/21 at 10:13; Status DC Oxycodone/ Acetaminophen (Percocet 5/325) 2 tab PRN Q4HRS PRN PO SEVERE PAIN Last administered on 01/28/21at 08:14; Start 01/23/21 at 13:45; Stop 01/28/21 at 10:13; Status DC Daptomycin 500 mg/ Sodium Chloride 50 ml @ 100 mls/hr Q24H IV Last administered on 01/26/21at 09:03; Start 01/24/21 at 09:00; Stop 01/26/21 at 12:51; Status DC Labetalol HCl (Normodyne Iv Push) 10 mg PRN Q15MIN PRN IVP HYPERTENSION Last administered on 01/28/21at 23:39; Start 01/24/21 at 00:00 Ziprasidone (Geodon) 20 mg PRN Q2HRS PRN PO ANXIETY / AGITATION Last administered on 01/25/21at 10:10; Start 01/24/21 at 00:00 Hydralazine HCl (Apresoline) 25 mg TID PO Last administered on 01/25/21at 08:01; Start 01/24/21 at 00:30; Stop 01/25/21 at 09:37; Status DC Insulin Human Lispro (HumaLOG) 5 units 1X ONCE SQ Last administered on 01/24/21at 00:19; Start 01/24/21 at 00:30; Stop 01/24/21 at 00:31; Status DC Ziprasidone (Geodon Im) 10 mg PRN Q2HRS PRN IM AGITATION Last administered on 01/24/21at 06:05; Start 01/24/21 at 00:15 Lidocaine HCl (Buffered Lidocaine 1%) 3 ml STK-MED ONCE .ROUTE ; Start 01/24/21 at 12:11; Stop 01/24/21 at 12:11; Status DC Lidocaine HCl (Buffered Lidocaine 1%) 3 ml STK-MED ONCE .ROUTE ; Start 01/24/21 at 12:21; Stop 01/24/21 at 12:22; Status DC Lidocaine HCl (Buffered Lidocaine 1%) 6 ml 1X ONCE INJ Last administered on 01/24/21at 13:10; Start 01/24/21 at 12:30; Stop 01/24/21 at 12:34; Status DC Gadoterate Meglumine (Clariscan) 20 ml 1X ONCE IVP Last administered on 01/24/21at 15:55; Start 01/24/21 at 15:30; Stop 01/24/21 at 15:31; Status DC Insulin Human Lispro (HumaLOG) 12 units 1X ONCE SQ Last administered on 01/24/21at 22:05; Start 01/24/21 at 22:00; Stop 01/24/21 at 22:01; Status DC Hydralazine HCl (Apresoline) 50 mg TID PO Last administered on 01/29/21at 08:42; Start 01/25/21 at 14:00; Stop 01/29/21 at 11:34; Status DC Insulin Glargine (Lantus Syringe) 10 unit BID SQ Last administered on 01/26/21at 23:06; Start 01/25/21 at 11:00; Stop 01/27/21 at 08:13; Status DC Prednisone (Prednisone) 40 mg DAILY PO Last administered on 01/26/21at 08:31; Start 01/26/21 at 09:00; Stop 01/26/21 at 09:15; Status DC Insulin Human Lispro (HumaLOG) 5 units TIDWMEALS SQ Last administered on 01/26/21at 17:00; Start 01/25/21 at 17:00; Stop 01/27/21 at 08:13; Status DC Polyethylene Glycol (miraLAX PACKET) 17 gm PRN Q4HRS PRN PO CONSTIPATION Last administered on 01/27/21at 09:40; Start 01/25/21 at 16:15 Insulin Human Lispro (HumaLOG) 20 units 1X ONCE SQ Last administered on 01/25/21at 18:18; Start 01/25/21 at 18:00; Stop 01/25/21 at 18:03; Status DC Prednisone (Prednisone) 20 mg DAILY PO Last administered on 01/29/21at 08:40; Start 01/27/21 at 09:00; Stop 01/29/21 at 11:34; Status DC Amlodipine Besylate (Norvasc) 5 mg DAILY PO Last administered on 01/27/21at 07:39; Start 01/26/21 at 09:15; Stop 01/27/21 at 08:12; Status DC Cefazolin Sodium/ Dextrose 50 ml @ 100 mls/hr Q8HRS IV Last administered on 01/29/21at 05:04; Start 01/26/21 at 14:00; Stop 01/29/21 at 10:36; Status DC Methylprednisolone Sodium Succinate (SOLU-Medrol 125MG VIAL) 125 mg 1X ONCE IV Last administered on 01/26/21at 14:59; Start 01/26/21 at 14:30; Stop 01/26/21 at 14:31; Status DC Amlodipine Besylate (Norvasc) 10 mg DAILY PO Last administered on 01/28/21at 08:15; Start 01/27/21 at 09:00; Stop 01/28/21 at 12:23; Status DC Insulin Glargine (Lantus Syringe) 15 unit BID SQ Last administered on 01/28/21at 10:20; Start 01/27/21 at 09:00; Stop 01/28/21 at 12:33; Status DC Insulin Human Lispro (HumaLOG) 10 units TIDWMEALS SQ Last administered on 01/28/21at 12:41; Start 01/27/21 at 12:00; Stop 01/28/21 at 17:53; Status DC Oxycodone HCl (Roxicodone) 5 mg PRN Q4HRS PRN PO PAIN; Start 01/28/21 at 10:15 Oxycodone HCl (Roxicodone) 10 mg PRN Q4HRS PRN PO PAIN Last administered on 01/29/21at 05:04; Start 01/28/21 at 10:30 Amlodipine Besylate (Norvasc) 10 mg DAILY PO Last administered on 01/29/21at 08:40; Start 01/29/21 at 09:00 Famotidine (Pepcid) 20 mg BID PO Last administered on 01/29/21at 08:42; Start 01/28/21 at 21:00 Insulin Glargine (Lantus Syringe) 20 unit BID SQ Last administered on 01/29/21at 08:46; Start 01/28/21 at 21:00 Insulin Human Regular (HumuLIN R VIAL) 15 unit 1X ONCE IV ; Start 01/28/21 at 13:00; Stop 01/28/21 at 13:01; Status DC Insulin Human Lispro (HumaLOG) 15 units 1X ONCE SQ ; Start 01/28/21 at 13:00; Stop 01/28/21 at 13:01; Status DC Insulin Human Lispro (HumaLOG) 20 units TIDWMEALS SQ Last administered on 01/29/21at 08:51; Start 01/28/21 at 18:00 Daptomycin 640 mg/ Sodium Chloride 50 ml @ 100 mls/hr Q24H IV ; Start 01/29/21 at 12:00 Hydralazine HCl (Apresoline) 75 mg TID PO ; Start 01/29/21 at 11:45 Active Scripts Active Colace (Docusate Sodium) 100 Mg Capsule 100 Mg PO BID 60 Days Methocarbamol 750 Mg Tablet 750 Mg PO TID PRN PRN Reported [V-Go 40 Day Kit ] Units SQ Q1HR 5 CLICKS @ MEALS 2 CLICKS @ SNACKS Freestyle Lite Test Strip (Blood Sugar Diagnostic) 1 Each Strip 1 Strip MC DAILY 30 Days Hydrocodone-Apap 7.5-325 (Hydrocodone Bit/Acetaminophen) 1 Tab Tablet 1-2 Tab PO PRN Q4HRS PRN Vascepa (Icosapent Ethyl) 1 Gm Capsule 1 Gm PO BID Zolpidem Tartrate Er (Zolpidem Tartrate) 12.5 Mg Tab.mphase 12.5 Mg PO PRN QHS PRN Probenecid 500 Mg Tablet 500 Mg PO BID Hydrochlorothiazide Capsule (Hydrochlorothiazide) 12.5 Mg Capsule 12.5 Mg PO DAILY Hydralazine Hcl 50 Mg Tablet 1 Tab PO DAILY Uloric (Febuxostat) 80 Mg Tablet 1 Tab PO DAILY 30 Days Clonidine Tts-2 (Clonidine) 1 Each Patch.tdwk 1 Patch TD WEEKLY Bystolic (Nebivolol Hcl) 20 Mg Tablet 20 Mg PO DAILY Aspirin 81 Mg Tab.chew 1 Tab PO DAILY Zetia (Ezetimibe) 10 Mg Tablet 10 Mg PO DAILY Zestril (Lisinopril) 20 Mg Tablet 1 Tab PO DAILY 30 Days Ozempic (Semaglutide) 1 Mg/0.75 Ml Pen.injctr 1 Mg SQ WEEKLY THURSDAY Lipitor (Atorvastatin Calcium) 80 Mg Tablet 1 Tab PO DAILY Jardiance (Empagliflozin) 25 Mg Tablet 25 Mg PO DAILY Vitals/I & O Vital Sign - Last 24 Hours 01/28/21 01/28/21 01/28/21 01/28/21 14:53 15:00 15:52 15:58 Temp 97.6 97.6 Pulse 85 95 95 94 Resp 16 B/P (MAP) 121/82 179/113 (135) 179/113 169/116 (133) Pulse Ox 93 O2 Delivery Room Air Room Air 01/28/21 01/28/21 01/28/21 01/28/21 16:02 17:52 18:02 18:09 Pulse 93 93 98 Resp 20 20 B/P (MAP) 145/103 (117) 167/112 (130) 167/112 161/120 (134) O2 Delivery Room Air 01/28/21 01/28/21 01/28/21 01/28/21 19:00 20:00 20:46 20:47 Temp 97.9 97.9 Pulse 95 95 95 Resp 16 B/P (MAP) 129/75 (93) 129/75 129/75 Pulse Ox 94 O2 Delivery Room Air Room Air 01/28/21 01/28/21 01/28/21 01/29/21 21:56 23:00 23:39 03:08 Temp 97.6 97.9 97.6 97.9 Pulse 77 77 76 Resp 16 16 B/P (MAP) 198/117 (144) 198/117 159/90 (113) Pulse Ox 94 96 94 O2 Delivery Room Air Room Air Room Air 01/29/21 01/29/21 01/29/21 01/29/21 05:04 05:34 07:00 08:00 Temp 98.0 98.0 Pulse 75 Resp 16 16 B/P (MAP) 173/104 (127) Pulse Ox 94 94 97 O2 Delivery Room Air Room Air Room Air Room Air 01/29/21 01/29/21 01/29/21 01/29/21 08:40 08:41 08:42 08:49 Pulse 75 75 75 Resp 20 B/P (MAP) 173/104 173/104 173/104 01/29/21 01/29/21 11:00 11:45 Temp 98.2 98.2 Pulse 86 86 Resp 16 B/P (MAP) 164/104 (124) 164/104 Pulse Ox 95 O2 Delivery Room Air Intake and Output 01/28/21 01/28/21 01/29/21 15:00 23:00 07:00 Intake Total 200 ml 200 ml Output Total 1 ml Balance 199 ml 200 ml Justifications for Admission Other Justification DOUG ZAMAN MD Jan 29, 2021 12:10
[2021-01-29] MEDS: METHOCARBAMOL 750 MG TABLET PO PRN ×2 (12:44→20:03)
[2021-01-29] MEDS: DAPTOmycin (GENERIC) IVPB 640 MG in IV NORMAL SALINE 50ML 50 ML IV SCH (12:47)
[2021-01-29 15:00] VITALS: BP 125/80
[2021-01-29] MEDS: CETIRIZINE HCL 10 MG TABLET. PO SCH (17:35)
[2021-01-29 19:35] VITALS: BP 157/100
[2021-01-29 23:04] VITALS: BP 133/82
[2021-01-30] MEDS: oxyCODONE IR 5 MG TABLET PO PRN ×4 (02:34→16:35)
[2021-01-30 02:55] VITALS: BP 149/82
[2021-01-30 05:07] LABS: BASO % 0 % (0-3); EOS # 0.2 x10^3/uL (0.0-0.7); EOS % 1 % (0-3); HEMATOCRIT 49.3 % (39.0-53.0); HEMOGLOBIN 16.4 g/dL (13.0-17.5); LYMPH # 1.8 x10^3/uL (1.0-4.8); LYMPH % 14 % (24-48); MEAN CORPUSCULAR HEMOGLOBIN 29 pg (25-35); MEAN CORPUSCULAR HGB CONC 33 g/dL (31-37); MEAN CORPUSCULAR VOLUME 88 fL (79-100); MONO # 0.7 x10^3/uL (0.0-1.1); MONO % 6 % (0-9); NEUT # 9.9 x10^3/uL (1.8-7.7); NEUT % 78 % (31-73); PLATELET COUNT 214 x10^3/uL (140-400); RED CELL DISTRIBUTION WIDTH 14.5 % (11.5-14.5); WHITE BLOOD COUNT 12.6 x10^3/uL (4.0-11.0)
[2021-01-30 05:13] LABS: CALCIUM 8.5 mg/dL (8.5-10.1); CREATININE 1.5 mg/dL (0.7-1.3); GFR 48.6; POTASSIUM 3.9 mmol/L (3.5-5.1)
[2021-01-30 07:00] VITALS: BP 200/111
[2021-01-30] MEDS: FEBUXOSTAT 40 MG TABLET PO SCH (07:57)
[2021-01-30] MEDS: PROBENECID 500 MG TABLET PO SCH (07:57)
[2021-01-30] MEDS: CETIRIZINE HCL 10 MG TABLET. PO SCH (07:58)
[2021-01-30] MEDS: METOPROLOL TART IMMED RELEASE 50 MG TABLET. PO SCH (07:58)
[2021-01-30] MEDS: LACTOBACILLUS RHAMNOSUS GG 1 CAPSULE. PO SCH (07:59)
[2021-01-30] MEDS: ASPIRIN CHEWABLE 81 MG TABLET. PO SCH (08:00)
[2021-01-30] MEDS: hydroCHLOROthiazide 12.5 MG CAPSULE PO SCH (08:00)
[2021-01-30] MEDS: FAMOTIDINE 20 MG TABLET. PO SCH (08:00)
[2021-01-30] MEDS: EZETIMIBE 10 MG TABLET. PO SCH (08:00)
[2021-01-30] MEDS: ATORVASTATIN CALCIUM 40 MG TABLET. PO SCH (08:00)
[2021-01-30] MEDS: DOCUSATE SODIUM 100 MG CAPSULE. PO SCH (08:00)
[2021-01-30] MEDS: INSULIN GLARGINE SYRINGE. SQ SCH (09:00)
[2021-01-30] MEDS: INSULIN LISPRO 300 UNITS/3 ML VIAL. SQ SCH ×4 (09:19→11:31)
[2021-01-30] MEDS: POLYETHYLENE GLYCOL 3350 17 GM PACKET. PO PRN (09:21)
--- NOTE | 2021-01-30 10:18 | PDOC ---
Infectious Disease Note Subjective: Subjective Patient without complaints Eager to get discharged home today Neck welts have resolved after local Benadryl cream Back pain is under control Ambulating in the room without difficulty Denies fever, nausea, vomiting, shortness of breath, diarrhea, abdominal pain, rash Otherwise as above Vital Signs: Vital Signs Vital Signs Date Time Temp Pulse Resp B/P (MAP) Pulse Ox O2 Delivery O2 Flow Rate FiO2 01/30/21 08:28 97 Room Air 01/30/21 08:00 200/111 01/30/21 07:00 97.8 79 18 97.8 Physical Exam: PHYSICAL EXAM GENERAL: Alert, oriented gentleman, not in distress. HEENT: Both pupils are round and reacting. No conjunctival lesion. No lesion in the mouth. Puffiness around the eyes resolved NECK: Supple. No JVP. No lymphadenopathy. LUNGS: Clear. HEART: S1, S2, regular. ABDOMEN: Soft, nontender. No organomegaly. EXTREMITIES: No edema, cyanosis. SKIN: Hives resolved No generalized rash SPINE: Incision with dressing intact, dry not taken down NEUROLOGIC: The patient is alert, awake and appropriate. No focal neurologic deficit. Medications: Inpatient Meds: Medications reviewed. Labs: Lab Laboratory Tests Test 01/29/21 11:25 01/29/21 16:44 01/29/21 20:52 01/30/21 04:45 Glucose (Fingerstick) 206 mg/dL (70-99) 197 mg/dL (70-99) 297 mg/dL (70-99) White Blood Count 12.6 x10^3/uL (4.0-11.0) Red Blood Count 5.60 x10^6/uL (4.30-5.70) Hemoglobin 16.4 g/dL (13.0-17.5) Hematocrit 49.3 % (39.0-53.0) Mean Corpuscular Volume 88 fL (79-100) Mean Corpuscular Hemoglobin 29 pg (25-35) Mean Corpuscular Hemoglobin Concent 33 g/dL (31-37) Red Cell Distribution Width 14.5 % (11.5-14.5) Platelet Count 214 x10^3/uL (140-400) Neutrophils (%) (Auto) 78 % (31-73) Lymphocytes (%) (Auto) 14 % (24-48) Monocytes (%) (Auto) 6 % (0-9) Eosinophils (%) (Auto) 1 % (0-3) Basophils (%) (Auto) 0 % (0-3) Neutrophils # (Auto) 9.9 x10^3/uL (1.8-7.7) Lymphocytes # (Auto) 1.8 x10^3/uL (1.0-4.8) Monocytes # (Auto) 0.7 x10^3/uL (0.0-1.1) Eosinophils # (Auto) 0.2 x10^3/uL (0.0-0.7) Basophils # (Auto) 0.0 x10^3/uL (0.0-0.2) Sodium Level 135 mmol/L (136-145) Potassium Level 3.9 mmol/L (3.5-5.1) Chloride Level 96 mmol/L (98-107) Carbon Dioxide Level 32 mmol/L (21-32) Anion Gap 7 (6-14) Blood Urea Nitrogen 29 mg/dL (8-26) Creatinine 1.5 mg/dL (0.7-1.3) Estimated GFR (Cockcroft-Gault) 48.6 Glucose Level 242 mg/dL (70-99) Calcium Level 8.5 mg/dL (8.5-10.1) Test 01/30/21 07:27 Glucose (Fingerstick) 179 mg/dL (70-99) Objective: Assessment: 1. Postsurgical spine infection. MSSA CRP 8.2, ESR 6 2. Status post right-sided hemilaminotomy and microdiscectomy L3-L4 done on 01/09/2021. 3. Diabetes mellitus. 4. Hypertension. 5. Leukocytosis. 6. Renal insufficiency. 7. MICHAEL inhibitor induced angioedema 8. Dermatitis around the neck less likely from cefazolin Plan: Plan of Care Continue daptomycin( do not feel cefazolin causes hives) Could be from one of his pain medications. Prednisone per primary Pain control per primary/neurosurgery When ready for discharge patient will need daptomycin as outpatient Prescription in chart Social work to assist with discharge antibiotics PICC crate liner and complications discussed Wound care per neurosurgery Follow-up in ID clinic as scheduled phone [phone] Discussed with JACKY CARBALLO MD Jan 30, 2021 10:18
[2021-01-30 11:00] VITALS: BP 130/79
--- NOTE | 2021-01-30 11:13 | PDOC2 ---
CONSULT Date of Consult Date of Consult DATE: 01/30/21 TIME: 11:08 Reason for Consult Reason for Consult: RENAL FAILURE Referring Physician Referring Physician: JUNIE Identification/Chief Complaint Chief Complaint BACK PAIN Source Source: Chart review, Patient History of Present Illness Reason for Visit: THIS IS A 55 YR OLD WITH BACK PAIN. UNDERWENT A HEMILAMINECTOMY OF L3-4 LEVELS. WENT HOME AND THEN DEVELOPED AN INFECTION. HAS BEEN ON ANTIBIOTICS. CR OF 1.5. HAS BEEN TOLD BY HIS PCP HE HAS CKD BUT HAS NOT YET SEEN RENAL. NO HEMODYNAMIC INSTABILITY. HAS DM II AND HTN OF LONG STANDING DURATION. UNABLE TO TAKE AN MICHAEL- I DUE TO ANGIOEDEMA. 24 HR PROTEIN HAS NOT BEEN QUANTIFIED. NO OTHER HX Past Medical History Cardiovascular: HTN Musculoskeletal: low back pain Renal/: Chronic renal insuff Endocrine: Diabetes Past Surgical History Past Surgical History LUMBAR LAMINECTOMY Family History Family History: Hypertension Social History No ALCOHOL: rare Drugs: None Lives: with Family Current Medications Current Medications Current Medications Fentanyl Citrate (Fentanyl 2ml Vial) 50 mcg PRN Q2HR PRN IVP PAIN Last administered on 01/23/21at 02:11; Start 01/22/21 at 16:00; Stop 01/23/21 at 03:01; Status DC Aspirin (Aspirin Chewable) 81 mg DAILY PO Last administered on 01/30/21at 08:00; Start 01/23/21 at 09:00 Clonidine HCl (Catapres Tts-2) 1 patch WEEKLY TD Last administered on 01/29/21at 08:42; Start 01/22/21 at 17:00 Docusate Sodium (Colace) 100 mg BID PO Last administered on 01/30/21at 08:00; Start 01/22/21 at 21:00 EZETIMIBE (Zetia) 10 mg DAILY PO Last administered on 01/30/21at 08:00; Start 01/23/21 at 09:00 Hydralazine HCl (Apresoline) 50 mg DAILY PO Last administered on 01/24/21at 08:41; Start 01/23/21 at 09:00; Stop 01/24/21 at 14:47; Status DC Hydrochlorothiazide (Microzide) 12.5 mg DAILY PO Last administered on 01/30/21at 08:00; Start 01/23/21 at 09:00 Acetaminophen/ Hydrocodone Bitart (Lortab 7.5/325) 2 tab PRN Q4HRS PRN PO PAIN Last administered on 01/23/21at 10:25; Start 01/22/21 at 16:00; Stop 01/23/21 at 13:34; Status DC Lisinopril (Prinivil) 20 mg DAILY PO ; Start 01/23/21 at 09:00; Stop 01/23/21 at 06:31; Status DC Methocarbamol (Robaxin) 750 mg TID PRN PRN PO MUSCLE SPASMS Last administered on 01/29/21at 20:03; Start 01/22/21 at 16:00 Atorvastatin Calcium (Lipitor) 80 mg DAILY PO Last administered on 01/30/21at 08:00; Start 01/23/21 at 09:00 Non-Formulary Medication (Empagliflozin (Jardiance)) 25 mg DAILY PO ; Start 01/23/21 at 09:00; Stop 01/23/21 at 18:17; Status DC Febuxostat (Uloric) 80 mg DAILY PO Last administered on 01/30/21at 07:57; Start 01/23/21 at 09:00 Non-Formulary Medication (Icosapent Ethyl (Vascepa)) 1 gm BID PO ; Start 01/22/21 at 21:00; Stop 01/23/21 at 18:18; Status DC Metoprolol Tartrate (Lopressor) 50 mg BID PO Last administered on 01/30/21at 07:58; Start 01/22/21 at 21:00 Probenecid (Benemid) 500 mg BID PO Last administered on 01/30/21at 07:57; Start 01/22/21 at 21:00 Non-Formulary Medication (Semaglutide (Ozempic)) 1 mg WEEKLY SQ ; Start 01/29/21 at 09:00; Status UNV Zolpidem Tartrate (Ambien) 5 mg PRN QHS PRN PO INSOMNIA, MAY REPEAT X1 Last administered on 01/23/21at 21:00; Start 01/22/21 at 16:15 Insulin Human Lispro (HumaLOG) 0-9 UNITS TIDWMEALS SQ Last administered on 01/30/21at 09:20; Start 01/22/21 at 00:00 Dextrose (Dextrose 50%-Water Syringe) 12.5 gm PRN Q15MIN PRN IV SEE COMMENTS; Start 01/22/21 at 20:45 Diphenhydramine HCl (Benadryl) 50 mg PRN Q6HRS PRN IVP ITCHING, 1ST CHOICE Last administered on 01/29/21at 20:05; Start 01/23/21 at 03:00 Diphenhydramine HCl (Benadryl) 100 mg PRN Q6HRS PRN IVP ITCHING, 2ND CHOICE Last administered on 01/29/21at 12:48; Start 01/23/21 at 03:00 Morphine Sulfate (Morphine Sulfate) 2 mg PRN Q2HR PRN IVP PAIN Last administered on 01/29/21at 12:45; Start 01/23/21 at 03:00 Famotidine (Pepcid Vial) 20 mg BID IVP Last administered on 01/28/21at 09:00; Start 01/23/21 at 07:00; Stop 01/28/21 at 12:26; Status DC Methylprednisolone Sodium Succinate (SOLU-Medrol 40MG VIAL) 40 mg Q12HR IV Last administered on 01/25/21at 08:02; Start 01/23/21 at 07:00; Stop 01/25/21 at 09:43; Status DC Daptomycin 640 mg/ Sodium Chloride 50 ml @ 100 mls/hr Q24H IV Last administered on 01/23/21at 11:01; Start 01/23/21 at 10:00; Stop 01/23/21 at 14:59; Status DC Piperacillin Sod/ Tazobactam Sod 3.375 gm/Sodium Chloride 50 ml @ 100 mls/hr Q6HRS IV Last administered on 01/25/21at 06:16; Start 01/23/21 at 10:00; Stop 01/25/21 at 08:23; Status DC Lactobacillus Rhamnosus (Culturelle) 1 cap BID PO Last administered on 01/30/21at 07:59; Start 01/23/21 at 21:00 Oxycodone/ Acetaminophen (Percocet 5/325) 1 tab PRN Q4HRS PRN PO MODERATE PAIN; Start 01/23/21 at 13:45; Stop 01/28/21 at 10:13; Status DC Oxycodone/ Acetaminophen (Percocet 5/325) 2 tab PRN Q4HRS PRN PO SEVERE PAIN Last administered on 01/28/21at 08:14; Start 01/23/21 at 13:45; Stop 01/28/21 at 10:13; Status DC Daptomycin 500 mg/ Sodium Chloride 50 ml @ 100 mls/hr Q24H IV Last administered on 01/26/21at 09:03; Start 01/24/21 at 09:00; Stop 01/26/21 at 12:51; Status DC Labetalol HCl (Normodyne Iv Push) 10 mg PRN Q15MIN PRN IVP HYPERTENSION Last administered on 01/28/21at 23:39; Start 01/24/21 at 00:00 Ziprasidone (Geodon) 20 mg PRN Q2HRS PRN PO ANXIETY / AGITATION Last administered on 01/25/21at 10:10; Start 01/24/21 at 00:00 Hydralazine HCl (Apresoline) 25 mg TID PO Last administered on 01/25/21at 08:01; Start 01/24/21 at 00:30; Stop 01/25/21 at 09:37; Status DC Insulin Human Lispro (HumaLOG) 5 units 1X ONCE SQ Last administered on 01/24/21at 00:19; Start 01/24/21 at 00:30; Stop 01/24/21 at 00:31; Status DC Ziprasidone (Geodon Im) 10 mg PRN Q2HRS PRN IM AGITATION Last administered on 01/24/21at 06:05; Start 01/24/21 at 00:15 Lidocaine HCl (Buffered Lidocaine 1%) 3 ml STK-MED ONCE .ROUTE ; Start 01/24/21 at 12:11; Stop 01/24/21 at 12:11; Status DC Lidocaine HCl (Buffered Lidocaine 1%) 3 ml STK-MED ONCE .ROUTE ; Start 01/24/21 at 12:21; Stop 01/24/21 at 12:22; Status DC Lidocaine HCl (Buffered Lidocaine 1%) 6 ml 1X ONCE INJ Last administered on 01/24/21at 13:10; Start 01/24/21 at 12:30; Stop 01/24/21 at 12:34; Status DC Gadoterate Meglumine (Clariscan) 20 ml 1X ONCE IVP Last administered on 01/24/21at 15:55; Start 01/24/21 at 15:30; Stop 01/24/21 at 15:31; Status DC Insulin Human Lispro (HumaLOG) 12 units 1X ONCE SQ Last administered on 01/24/21at 22:05; Start 01/24/21 at 22:00; Stop 01/24/21 at 22:01; Status DC Hydralazine HCl (Apresoline) 50 mg TID PO Last administered on 01/29/21at 08:42; Start 01/25/21 at 14:00; Stop 01/29/21 at 11:34; Status DC Insulin Glargine (Lantus Syringe) 10 unit BID SQ Last administered on 01/26/21at 23:06; Start 01/25/21 at 11:00; Stop 01/27/21 at 08:13; Status DC Prednisone (Prednisone) 40 mg DAILY PO Last administered on 01/26/21at 08:31; Start 01/26/21 at 09:00; Stop 01/26/21 at 09:15; Status DC Insulin Human Lispro (HumaLOG) 5 units TIDWMEALS SQ Last administered on 01/26/21at 17:00; Start 01/25/21 at 17:00; Stop 01/27/21 at 08:13; Status DC Polyethylene Glycol (miraLAX PACKET) 17 gm PRN Q4HRS PRN PO CONSTIPATION Last administered on 01/30/21at 09:21; Start 01/25/21 at 16:15 Insulin Human Lispro (HumaLOG) 20 units 1X ONCE SQ Last administered on 01/25/21at 18:18; Start 01/25/21 at 18:00; Stop 01/25/21 at 18:03; Status DC Prednisone (Prednisone) 20 mg DAILY PO Last administered on 01/29/21at 08:40; Start 01/27/21 at 09:00; Stop 01/29/21 at 11:34; Status DC Amlodipine Besylate (Norvasc) 5 mg DAILY PO Last administered on 01/27/21at 07:39; Start 01/26/21 at 09:15; Stop 01/27/21 at 08:12; Status DC Cefazolin Sodium/ Dextrose 50 ml @ 100 mls/hr Q8HRS IV Last administered on 01/29/21at 05:04; Start 01/26/21 at 14:00; Stop 01/29/21 at 10:36; Status DC Methylprednisolone Sodium Succinate (SOLU-Medrol 125MG VIAL) 125 mg 1X ONCE IV Last administered on 01/26/21at 14:59; Start 01/26/21 at 14:30; Stop 01/26/21 at 14:31; Status DC Amlodipine Besylate (Norvasc) 10 mg DAILY PO Last administered on 01/28/21at 08:15; Start 01/27/21 at 09:00; Stop 01/28/21 at 12:23; Status DC Insulin Glargine (Lantus Syringe) 15 unit BID SQ Last administered on 01/28/21at 10:20; Start 01/27/21 at 09:00; Stop 01/28/21 at 12:33; Status DC Insulin Human Lispro (HumaLOG) 10 units TIDWMEALS SQ Last administered on 01/28/21at 12:41; Start 01/27/21 at 12:00; Stop 01/28/21 at 17:53; Status DC Oxycodone HCl (Roxicodone) 5 mg PRN Q4HRS PRN PO PAIN; Start 01/28/21 at 10:15 Oxycodone HCl (Roxicodone) 10 mg PRN Q4HRS PRN PO PAIN Last administered on 01/30/21at 07:58; Start 01/28/21 at 10:30 Amlodipine Besylate (Norvasc) 10 mg DAILY PO Last administered on 01/30/21at 08:00; Start 01/29/21 at 09:00 Famotidine (Pepcid) 20 mg BID PO Last administered on 01/30/21at 08:00; Start 01/28/21 at 21:00 Insulin Glargine (Lantus Syringe) 20 unit BID SQ Last administered on 01/30/21at 09:00; Start 01/28/21 at 21:00 Insulin Human Regular (HumuLIN R VIAL) 15 unit 1X ONCE IV ; Start 01/28/21 at 13:00; Stop 01/28/21 at 13:01; Status DC Insulin Human Lispro (HumaLOG) 15 units 1X ONCE SQ ; Start 01/28/21 at 13:00; Stop 01/28/21 at 13:01; Status DC Insulin Human Lispro (HumaLOG) 20 units TIDWMEALS SQ Last administered on 01/30/21at 09:19; Start 01/28/21 at 18:00 Daptomycin 640 mg/ Sodium Chloride 50 ml @ 100 mls/hr Q24H IV Last adm inistered on 01/29/21at 12:47; Start 01/29/21 at 12:00 Hydralazine HCl (Apresoline) 75 mg TID PO Last administered on 01/30/21at 07:59; Start 01/29/21 at 11:45 Cetirizine HCl (ZyrTEC) 10 mg DAILY PO Last administered on 01/30/21at 07:58; Start 01/29/21 at 16:00 Active Scripts Active Colace (Docusate Sodium) 100 Mg Capsule 100 Mg PO BID 60 Days Methocarbamol 750 Mg Tablet 750 Mg PO TID PRN PRN Reported [V-Go 40 Day Kit ] Units SQ Q1HR 5 CLICKS @ MEALS 2 CLICKS @ SNACKS Freestyle Lite Test Strip (Blood Sugar Diagnostic) 1 Each Strip 1 Strip MC DAILY 30 Days Hydrocodone-Apap 7.5-325 (Hydrocodone Bit/Acetaminophen) 1 Tab Tablet 1-2 Tab PO PRN Q4HRS PRN Vascepa (Icosapent Ethyl) 1 Gm Capsule 1 Gm PO BID Zolpidem Tartrate Er (Zolpidem Tartrate) 12.5 Mg Tab.mphase 12.5 Mg PO PRN QHS PRN Probenecid 500 Mg Tablet 500 Mg PO BID Hydrochlorothiazide Capsule (Hydrochlorothiazide) 12.5 Mg Capsule 12.5 Mg PO DAILY Hydralazine Hcl 50 Mg Tablet 1 Tab PO DAILY Uloric (Febuxostat) 80 Mg Tablet 1 Tab PO DAILY 30 Days Clonidine Tts-2 (Clonidine) 1 Each Patch.tdwk 1 Patch TD WEEKLY Bystolic (Nebivolol Hcl) 20 Mg Tablet 20 Mg PO DAILY Aspirin 81 Mg Tab.chew 1 Tab PO DAILY Zetia (Ezetimibe) 10 Mg Tablet 10 Mg PO DAILY Zestril (Lisinopril) 20 Mg Tablet 1 Tab PO DAILY 30 Days Ozempic (Semaglutide) 1 Mg/0.75 Ml Pen.injctr 1 Mg SQ WEEKLY THURSDAY Lipitor (Atorvastatin Calcium) 80 Mg Tablet 1 Tab PO DAILY Jardiance (Empagliflozin) 25 Mg Tablet 25 Mg PO DAILY Allergies Allergies: Coded Allergies: MICHAEL Inhibitors (Verified Allergy, Severe, ANGIOEDEMA, 01/24/21) swelling dulaglutide (Verified Allergy, Intermediate, Rash, 01/10/21) fentanyl (Verified Allergy, Intermediate, Swelling, 01/23/21) + Hives ROS Review of System FULL ROS NEG EXCEPT FOR BACK PAIN AND BELOW General: YES: Fatigue Eyes: Yes Decreased vision Physical Exam General: Alert, Oriented X3, Cooperative, No acute distress HEENT: Atraumatic Lungs: Clear to auscultation Heart: Regular rate Abdomen: Normal bowel sounds, Soft Extremities: No clubbing, No cyanosis Skin: No breakdown Neuro: Normal speech Psych/Mental Status: Mental status NL, Mood NL MUSCULOSKELETAL: No joint tenderness, No deformity Vitals VITALS Vital Signs Date Time Temp Pulse Resp B/P (MAP) Pulse Ox O2 Delivery O2 Flow Rate FiO2 01/30/21 08:28 97 Room Air 01/30/21 08:00 200/111 01/30/21 07:00 97.8 79 18 97.8 Labs Labs Laboratory Tests Test 01/28/21 11:35 01/28/21 17:24 01/28/21 21:30 01/29/21 05:30 Glucose (Fingerstick) 452 mg/dL (70-99) 428 mg/dL (70-99) 276 mg/dL (70-99) Sodium Level 135 mmol/L (136-145) Potassium Level 4.0 mmol/L (3.5-5.1) Chloride Level 95 mmol/L (98-107) Carbon Dioxide Level 32 mmol/L (21-32) Anion Gap 8 (6-14) Blood Urea Nitrogen 25 mg/dL (8-26) Creatinine 1.3 mg/dL (0.7-1.3) Estimated GFR (Cockcroft-Gault) 57.3 Glucose Level 196 mg/dL (70-99) Calcium Level 8.7 mg/dL (8.5-10.1) Test 01/29/21 06:30 01/29/21 07:10 01/29/21 11:25 01/29/21 16:44 White Blood Count 12.6 x10^3/uL (4.0-11.0) Red Blood Count 6.00 x10^6/uL (4.30-5.70) Hemoglobin 17.3 g/dL (13.0-17.5) Hematocrit 52.7 % (39.0-53.0) Mean Corpuscular Volume 88 fL (79-100) Mean Corpuscular Hemoglobin 29 pg (25-35) Mean Corpuscular Hemoglobin Concent 33 g/dL (31-37) Red Cell Distribution Width 14.7 % (11.5-14.5) Platelet Count 160 x10^3/uL (140-400) Neutrophils (%) (Auto) 74 % (31-73) Lymphocytes (%) (Auto) 18 % (24-48) Monocytes (%) (Auto) 6 % (0-9) Eosinophils (%) (Auto) 2 % (0-3) Basophils (%) (Auto) 0 % (0-3) Neutrophils # (Auto) 9.3 x10^3/uL (1.8-7.7) Lymphocytes # (Auto) 2.2 x10^3/uL (1.0-4.8) Monocytes # (Auto) 0.8 x10^3/uL (0.0-1.1) Eosinophils # (Auto) 0.2 x10^3/uL (0.0-0.7) Basophils # (Auto) 0.1 x10^3/uL (0.0-0.2) Glucose (Fingerstick) 202 mg/dL (70-99) 206 mg/dL (70-99) 197 mg/dL (70-99) Test 01/29/21 20:52 01/30/21 04:45 01/30/21 07:27 01/30/21 10:41 Glucose (Fingerstick) 297 mg/dL (70-99) 179 mg/dL (70-99) 307 mg/dL (70-99) White Blood Count 12.6 x10^3/uL (4.0-11.0) Red Blood Count 5.60 x10^6/uL (4.30-5.70) Hemoglobin 16.4 g/dL (13.0-17.5) Hematocrit 49.3 % (39.0-53.0) Mean Corpuscular Volume 88 fL (79-100) Mean Corpuscular Hemoglobin 29 pg (25-35) Mean Corpuscular Hemoglobin Concent 33 g/dL (31-37) Red Cell Distribution Width 14.5 % (11.5-14.5) Platelet Count 214 x10^3/uL (140-400) Neutrophils (%) (Auto) 78 % (31-73) Lymphocytes (%) (Auto) 14 % (24-48) Monocytes (%) (Auto) 6 % (0-9) Eosinophils (%) (Auto) 1 % (0-3) Basophils (%) (Auto) 0 % (0-3) Neutrophils # (Auto) 9.9 x10^3/uL (1.8-7.7) Lymphocytes # (Auto) 1.8 x10^3/uL (1.0-4.8) Monocytes # (Auto) 0.7 x10^3/uL (0.0-1.1) Eosinophils # (Auto) 0.2 x10^3/uL (0.0-0.7) Basophils # (Auto) 0.0 x10^3/uL (0.0-0.2) Sodium Level 135 mmol/L (136-145) Potassium Level 3.9 mmol/L (3.5-5.1) Chloride Level 96 mmol/L (98-107) Carbon Dioxide Level 32 mmol/L (21-32) Anion Gap 7 (6-14) Blood Urea Nitrogen 29 mg/dL (8-26) Creatinine 1.5 mg/dL (0.7-1.3) Estimated GFR (Cockcroft-Gault) 48.6 Glucose Level 242 mg/dL (70-99) Calcium Level 8.5 mg/dL (8.5-10.1) Laboratory Tests Test 01/29/21 11:25 01/29/21 16:44 01/29/21 20:52 01/30/21 04:45 Glucose (Fingerstick) 206 mg/dL (70-99) 197 mg/dL (70-99) 297 mg/dL (70-99) White Blood Count 12.6 x10^3/uL (4.0-11.0) Red Blood Count 5.60 x10^6/uL (4.30-5.70) Hemoglobin 16.4 g/dL (13.0-17.5) Hematocrit 49.3 % (39.0-53.0) Mean Corpuscular Volume 88 fL (79-100) Mean Corpuscular Hemoglobin 29 pg (25-35) Mean Corpuscular Hemoglobin Concent 33 g/dL (31-37) Red Cell Distribution Width 14.5 % (11.5-14.5) Platelet Count 214 x10^3/uL (140-400) Neutrophils (%) (Auto) 78 % (31-73) Lymphocytes (%) (Auto) 14 % (24-48) Monocytes (%) (Auto) 6 % (0-9) Eosinophils (%) (Auto) 1 % (0-3) Basophils (%) (Auto) 0 % (0-3) Neutrophils # (Auto) 9.9 x10^3/uL (1.8-7.7) Lymphocytes # (Auto) 1.8 x10^3/uL (1.0-4.8) Monocytes # (Auto) 0.7 x10^3/uL (0.0-1.1) Eosinophils # (Auto) 0.2 x10^3/uL (0.0-0.7) Basophils # (Auto) 0.0 x10^3/uL (0.0-0.2) Sodium Level 135 mmol/L (136-145) Potassium Level 3.9 mmol/L (3.5-5.1) Chloride Level 96 mmol/L (98-107) Carbon Dioxide Level 32 mmol/L (21-32) Anion Gap 7 (6-14) Blood Urea Nitrogen 29 mg/dL (8-26) Creatinine 1.5 mg/dL (0.7-1.3) Estimated GFR (Cockcroft-Gault) 48.6 Glucose Level 242 mg/dL (70-99) Calcium Level 8.5 mg/dL (8.5-10.1) Test 01/30/21 07:27 01/30/21 10:41 Glucose (Fingerstick) 179 mg/dL (70-99) 307 mg/dL (70-99) Assessment/Plan Assessment/Plan IMP CKD STAGE 3 A - CR STABLE AT 1.5 LABILE HTN DM II POST SURGICAL SPINE INFECTION PLAN FOR NOW WILL STOP CATAPRESS PATCH WILL START PO CLONIDINE OP F/U D/C PLANS NOTED D/W ISABEL SHAH MD Jan 30, 2021 11:13
[2021-01-30] MEDS ORDERED: cloNIDine HCL 0.1 MG TABLET PO ONE (11:15)
[2021-01-30] MEDS: METHOCARBAMOL 750 MG TABLET PO PRN (11:22)
[2021-01-30] MEDS: DAPTOmycin (GENERIC) IVPB 640 MG in IV NORMAL SALINE 50ML 50 ML IV SCH (11:23)
--- NOTE | 2021-01-30 12:08 | PDOC ---
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 Hypertension. Leukocytosis. Renal insufficiency - follow up nephrology outpatient Okay with discharge to home with home health Recommend to continue prednisone for another 2 days at 20 mg daily. No need for further tapering as patient was only on high-dose steroids for less than a week Recommend to continue with HCTZ, amlodipine, metoprolol and clonidine for blood pressure control. Discussed with nephrology to stop clonidine patch and changed to 0.2 mg twice daily clonidine tablets on discharge Okay to continue with insulin pump as long as there is no other concerns for other sources of infection infection, especially in the skin or soft tissue area Would avoid MICHAEL inhibitor for now, and may consider possibly ARB in the future if blood pressure still poorly controlled as patient is a diabetic and would benefit significantly from a ARB for kidney protection History of Present Illness History of Present Illness 55-year-old male who underwent lumbar hemilaminectomy of the L3-L4 levels on January 09, 2021. He was actually discharged home the following day was doing well. Unfortunately patient had a surgical site complication with infection he was started on Keflex and failed p.o. antibiotics over the weekend. There was increasing pain and serous drainage from incision and he was brought in for further evaluation and IV antibiotics. He was given fentanyl for pain and patient was on lisinopril chronically. Unfortunately patient had angioedema most likely with his use of MICHAEL inhibitors. Infectious diseases consulted for antibiotic management. Patient interviewed bedside and he was doing well. He denies any throat swelling or wheezing or trouble breathing. He does not have any periorbital edema or facial swelling. Only upper portion of his lip is swollen and his tongue is fine. He is speaking in full sentences without any use of his accessory muscles. Denies fevers, confusion, syncope, chest pain, shortness of breath, abdominal pain, diarrhea or hematuria. 01/24/2021 Patient had an acute agitative and confusion episode last night. Patient ripped out the sharps container from the wall. He appears to be close to his baseline today and appears lethargic but talking on the phone. Sitting on the recliner and not agitated at this time. No fevers somewhat tachycardic and no hypotensive episodes. Swelling of his upper lip appears to be improved. No redness or swelling. Patient will likely benefit from a PICC line placement for long-term IV antibiotics. Will defer the timing and course to infectious disease. Patient's chart, labs, images were reviewed and discussed with RN 01/25/2021 No acute events overnight. Patient is ambulating through the hallways [facility]. There is clear drainage on the dressings which will need to be switched out. Blood pressures have been uncontrolled with systolic blood pressures from 1 60- 1 90. He does have IV antihypertensive medications as needed. I have increased his hydralazine to 50 mg 3 times daily. His sugars have also been greater than 300 and as high as 400. I have added a long-acting Lantus 10 units twice daily and keeping him on regular insulin sliding scale. Patient usually does have an insulin pump in which he had his friend bring. However due to his staff aureus infection I would recommend him not to place the insulin pump at this time and only administer insulin as needed and do subcu injections. I have also decreased his Solu-Medrol to a prednisone taper at 40 mg daily for now. 01/26/2021 No acute events overnight. Patient seen and examined bedside. Resting comfortably. Appears pain is well controlled. Blood pressures have improved. Will decrease his prednisone to 20 mg daily. Continue his 5 units 3 times daily with meals of lispro and long-acting glargine 10 units twice daily with sliding scale high intensity. Patient's chart, labs, images were reviewed and discussed with RN 01/27/2021 No acute events overnight. Patient yesterday had some swelling around the eyes and I gave a dose of pulse IV steroids. Swelling and irritation or hives around the periorbital region has improved. Patient has some drug-seeking behavior which she was requiring only IV pain medications. Patient seen and examined bedside. Patient was using his cell phone at the time and appeared to be content. Not in any active pain at the time. No acute agitative episodes overnight. Wound is appearing improved without much drainage. Continue to taper steroids and continued IV antibiotics per ID. I have increased her glargine to 15 units twice daily and increased his premale lispro to 10 units before meals. Patient's chart, labs, images were reviewed and discussed with RN 01/29: No acute events overnight. Patient seen and examined bedside. Resting comfortably in bed. Blood pressures continues to be elevated in the 170s to 160s systolics. I have increased his hydralazine to 75 mg 3 times daily. I have stopped his prednisone. Sugars have been better controlled. 01/30: No overnight events. Blood pressure improved discussed with nephrology to change to 0.2 mg twice daily of clonidine and to follow-up with nephrology outpatient. Patient without complaints. Wishes for d/c today, has home antibiotics set up, has previously had PICC and home antibiotics. Vitals/I&O Vitals/I&O: Vital Signs Date Time Temp Pulse Resp B/P (MAP) Pulse Ox O2 Delivery O2 Flow Rate FiO2 01/30/21 11: 78 130/79 01/30/21 11:00 98.1 16 97 Room Air 98.1 I & O 01/29/21 01/29/21 01/30/21 15:00 23:00 07:00 Intake Total 480 ml Balance 480 ml Physical Exam Physical Exam: GENERAL: Alert, oriented gentleman, not in distress. HEENT: Both pupils are round and reacting. No conjunctival lesion. No lesion in the mouth. Puffiness around the eyes resolved NECK: Supple. No JVP. No lymphadenopathy. LUNGS: Clear. HEART: S1, S2, regular. ABDOMEN: Soft, nontender. No organomegaly. EXTREMITIES: No edema, cyanosis. SKIN: Hives resolved No generalized rash SPINE: Incision with dressing intact, dry not taken down NEUROLOGIC: The patient is alert, awake and appropriate. No focal neurologic deficit. General: Alert, Oriented X3, Cooperative, No acute distress Heart: Regular rate Lungs: Clear Abdomen: Normal bowel sounds, Soft Extremities: No clubbing, No cyanosis Skin: No breakdown Labs Labs: Laboratory Tests Test 01/29/21 16:44 01/29/21 20:52 01/30/21 04:45 01/30/21 07:27 Glucose (Fingerstick) 197 mg/dL (70-99) 297 mg/dL (70-99) 179 mg/dL (70-99) White Blood Count 12.6 x10^3/uL (4.0-11.0) Red Blood Count 5.60 x10^6/uL (4.30-5.70) Hemoglobin 16.4 g/dL (13.0-17.5) Hematocrit 49.3 % (39.0-53.0) Mean Corpuscular Volume 88 fL (79-100) Mean Corpuscular Hemoglobin 29 pg (25-35) Mean Corpuscular Hemoglobin Concent 33 g/dL (31-37) Red Cell Distribution Width 14.5 % (11.5-14.5) Platelet Count 214 x10^3/uL (140-400) Neutrophils (%) (Auto) 78 % (31-73) Lymphocytes (%) (Auto) 14 % (24-48) Monocytes (%) (Auto) 6 % (0-9) Eosinophils (%) (Auto) 1 % (0-3) Basophils (%) (Auto) 0 % (0-3) Neutrophils # (Auto) 9.9 x10^3/uL (1.8-7.7) Lymphocytes # (Auto) 1.8 x10^3/uL (1.0-4.8) Monocytes # (Auto) 0.7 x10^3/uL (0.0-1.1) Eosinophils # (Auto) 0.2 x10^3/uL (0.0-0.7) Basophils # (Auto) 0.0 x10^3/uL (0.0-0.2) Sodium Level 135 mmol/L (136-145) Potassium Level 3.9 mmol/L (3.5-5.1) Chloride Level 96 mmol/L (98-107) Carbon Dioxide Level 32 mmol/L (21-32) Anion Gap 7 (6-14) Blood Urea Nitrogen 29 mg/dL (8-26) Creatinine 1.5 mg/dL (0.7-1.3) Estimated GFR (Cockcroft-Gault) 48.6 Glucose Level 242 mg/dL (70-99) Calcium Level 8.5 mg/dL (8.5-10.1) Test 01/30/21 10:41 Glucose (Fingerstick) 307 mg/dL (70-99) Comment Review of Relevant I have reviewed the following items lashaun (where applicable) has been applied. Medications: Current Medications Medications (Trade) Dose Ordered Sig/Zain Route PRN Reason Start Time Stop Time Status Last Admin Dose Admin Daptomycin 640 mg/ Sodium Chloride 50 ml @ 100 mls/hr Q24H IV 01/29/21 12:00 01/30/21 11:23 Cetirizine HCl (ZyrTEC) 10 mg DAILY PO 01/29/21 16:00 01/30/21 07:58 Clonidine HCl (Catapres) 0.1 mg 1X ONCE PO 01/30/21 11:15 01/30/21 11:18 DC 01/30/21 11:23 Justifications for Admission Other Justification AVTAR BARKER MD Jan 30, 2021 12:08
[2021-01-30] MEDS ORDERED: AMLO-187 PO (12:13)
[2021-01-30] MEDS ORDERED: LACT1CAP19 PO (12:13)
[2021-01-30] MEDS ORDERED: DAPT350V IV (12:13)
[2021-01-30] MEDS ORDERED: CLON0.2T PO (12:13)
--- NOTE | 2021-01-30 12:16 | SNU/HH DC ---
DISCHARGE WITH HOME HEALTH DISCHARGE INFORMATION: Discharge Date: Jan 30, 2021 Final Diagnosis: Staph spine infection Condition on Discharge: Stable CODE STATUS: Code Status: Full HOME HEALTH: Face to Face: I certify this patient is under my care and that I, or a nurse practitioner or physician's printer assistant working with me, had a face to face encounter that meets the physician face to face encounter requirements with this patient on 01/30/2021. Medical Complications: DM, HTN, Other (Infection) Senior Living For: Admin/Educate Injections, Diabetic Care, IV Infusion Therapy, Medication Management RN For Eval/Treatment: Yes Pt Meets Homebound Status: Limited distance walking POST DISCHARGE ORDERS: Activity Instructions for Disc: Activity as tolerated, Walk in house Weight Bearing Status after Di: No restrictions Bathing Instructions: Shower-keep dressing dry, No Tub Bath until see DIET AFTER DISCHARGE: ADA Wound/Incision Care: Ice to area for comfort, Keep wound/cast CDI, Keep wound elevated FOLLOW-UP: Additional Instructions: [facility] Doctors: Jamal [address] [place] [address], [address] [place] [address] Dr. Zaman Perrin Neurosurgery [facility] [address] [place] [address] [facility]ious [facility] follow up 2 weeks [address] [place] [address] P: F: Fax weekly CBC BUN/creatinine CPK ESR and CRP [id number] attention Dr. Echols TREATMENT/EQUIPMENT ORDERS: Adaptive Equipment Issued: None Infusion Equipment, home use: PICC Line CERTIFICATION STATEMENT: Certification Statement: Certification Statement: Based on the above finding, I certify that this patient is confined to the home and needs intermittent snf care, physical therapy and/or speech therapy, or continues to need occupational therapy.~ This patient is under my care, and I have initiated the establishment of the plan of care.~ This patient will be followed by myself or a community physician who will periodically review the plan of care. Home Meds Active Scripts Clonidine Hcl (CLONIDINE HCL) 0.2 Mg Tablet, 1 TAB PO BID for HTN for 30 Days, #60 TAB 2 Refills Prov:AVTAR BARKER MD 01/30/21 Amlodipine Besylate (AMLODIPINE BESYLATE) 10 Mg Tablet, 10 MG PO DAILY for HTN for 30 Days, #30 TAB 2 Refills Prov:AVTAR BARKER MD 01/30/21 Lactobacillus Rhamnosus Gg (CULTURELLE) 1 Each Cap.sprink, 1 CAP PO BID for probiotic for 42 Days, #84 CAP Prov:AVTAR BARKER MD 01/30/21 Daptomycin (Daptomycin) 350 Mg Vial, 600 MG IV DAILY for Spine staph infection for 42 Days, #72 EACH Prov:AVTAR BARKER MD 01/30/21 Docusate Sodium (COLACE) 100 Mg Capsule, 100 MG PO BID for constipation for 60 Days, #120 CAP Prov:DOUG ZAMAN MD 01/09/21 Methocarbamol (METHOCARBAMOL) 750 Mg Tablet, 750 MG PO TID PRN PRN for MUSCLE SPASMS, #60 TAB Prov:DOUG ZAMAN MD 01/09/21 Reported Medications [V-Go 40 Day Kit ] No Conflict Check, UNITS SQ Q1HR, #1.67 5 CLICKS @ MEALS 2 CLICKS @ SNACKS 01/02/21 Blood Sugar Diagnostic (Freestyle Lite Test Strip) 1 Each Strip, 1 STRIP MC DAILY for CHECK BLOOD SUGAR for 30 Days, #30 STRIP 0 Refills 01/02/21 Hydrocodone Bit/Acetaminophen (HYDROCODONE-APAP 7.5-325 ) 1 Tab Tablet, 1-2 TAB PO PRN Q4HRS PRN for PAIN, TAB 0 Refills 01/02/21 Icosapent Ethyl (VASCEPA) 1 Gm Capsule, 1 GM PO BID for , CAP 01/02/21 Zolpidem Tartrate (ZOLPIDEM TARTRATE ER) 12.5 Mg Tab.mphase, 12.5 MG PO PRN QHS PRN for INSOMNIA, TAB 0 Refills 01/02/21 Probenecid (PROBENECID) 500 Mg Tablet, 500 MG PO BID for , TAB 01/02/21 Hydrochlorothiazide (HYDROCHLOROTHIAZIDE CAPSULE ) 12.5 Mg Capsule, 12.5 MG PO DAILY for DIURETIC, CAP 0 Refills 01/05/20 Hydralazine Hcl (HYDRALAZINE HCL) 50 Mg Tablet, 1 TAB PO DAILY for lower blood pressure, #90 TAB 5 Refills 01/05/20 Febuxostat (ULORIC) 80 Mg Tablet, 1 TAB PO DAILY for gout for 30 Days, #30 TAB 0 Refills 01/05/20 Nebivolol Hcl (BYSTOLIC) 20 Mg Tablet, 20 MG PO DAILY for lower blood pressure, TAB 01/05/20 Aspirin (ASPIRIN) 81 Mg Tab.chew, 1 TAB PO DAILY for thin blood, #30 TAB 3 Refil ls 01/05/20 Ezetimibe (ZETIA) 10 Mg Tablet, 10 MG PO DAILY for lower cholesterol, TAB 01/05/20 Semaglutide (Ozempic) 1 Mg/0.75 Ml Pen.injctr, 1 MG SQ WEEKLY for control blood sugar, EACH Thursday01/05/20 Atorvastatin Calcium (LIPITOR) 80 Mg Tablet, 1 TAB PO DAILY for control cholesterol, #30 TAB 5 Refills 01/05/20 Empagliflozin (Jardiance) 25 Mg Tablet, 25 MG PO DAILY for control blood sugar, TAB 01/05/20 Discontinued Reported Medications Clonidine (CLONIDINE TTS-2 ) 1 Each Patch.tdwk, 1 PATCH TD WEEKLY for HYPERTENSION, PATCH 01/05/20 Lisinopril (ZESTRIL) 20 Mg Tablet, 1 TAB PO DAILY for lower blood pressure for 30 Days, #30 TAB 0 Refills 01/05/20 AVTAR BARKER MD Jan 30, 2021 12:16
--- NOTE | 2021-01-30 12:18 | PDOC3 ---
Discharge Summary Visit Information Date of Admission: Jan 22, 2021 Date of Discharge: Jan 30, 2021 Admitting Diagnosis: MSSA wound Final Diagnosis MSSA wound Brief Hospital Course Allergies Allergies Coded Allergies Type Severity Reaction Last Updated Verified MICHAEL Inhibitors Allergy Severe ANGIOEDEMA 01/24/21 Yes dulaglutide Allergy Intermediate Rash 01/10/21 Yes fentanyl Allergy Intermediate Swelling 01/23/21 Yes Vital Signs Vital Signs Date Time Temp Pulse Resp B/P (MAP) Pulse Ox O2 Delivery O2 Flow Rate FiO2 01/30/21 11:23 78 130/79 01/30/21 11:00 98.1 16 97 Room Air 98.1 Lab Results Laboratory Tests Test 01/28/21 17:24 01/28/21 21:30 01/29/21 05:30 01/29/21 06:30 Glucose (Fingerstick) 428 mg/dL (70-99) 276 mg/dL (70-99) Sodium Level 135 mmol/L (136-145) Potassium Level 4.0 mmol/L (3.5-5.1) Chloride Level 95 mmol/L (98-107) Carbon Dioxide Level 32 mmol/L (21-32) Anion Gap 8 (6-14) Blood Urea Nitrogen 25 mg/dL (8-26) Creatinine 1.3 mg/dL (0.7-1.3) Estimated GFR (Cockcroft-Gault) 57.3 Glucose Level 196 mg/dL (70-99) Calcium Level 8.7 mg/dL (8.5-10.1) White Blood Count 12.6 x10^3/uL (4.0-11.0) Red Blood Count 6.00 x10^6/uL (4.30-5.70) Hemoglobin 17.3 g/dL (13.0-17.5) Hematocrit 52.7 % (39.0-53.0) Mean Corpuscular Volume 88 fL (79-100) Mean Corpuscular Hemoglobin 29 pg (25-35) Mean Corpuscular Hemoglobin Concent 33 g/dL (31-37) Red Cell Distribution Width 14.7 % (11.5-14.5) Platelet Count 160 x10^3/uL (140-400) Neutrophils (%) (Auto) 74 % (31-73) Lymphocytes (%) (Auto) 18 % (24-48) Monocytes (%) (Auto) 6 % (0-9) Eosinophils (%) (Auto) 2 % (0-3) Basophils (%) (Auto) 0 % (0-3) Neutrophils # (Auto) 9.3 x10^3/uL (1.8-7.7) Lymphocytes # (Auto) 2.2 x10^3/uL (1.0-4.8) Monocytes # (Auto) 0.8 x10^3/uL (0.0-1.1) Eosinophils # (Auto) 0.2 x10^3/uL (0.0-0.7) Basophils # (Auto) 0.1 x10^3/uL (0.0-0.2) Test 01/29/21 07:10 01/29/21 11:25 01/29/21 16:44 01/29/21 20:52 Glucose (Fingerstick) 202 mg/dL (70-99) 206 mg/dL (70-99) 197 mg/dL (70-99) 297 mg/dL (70-99) Test 01/30/21 04:45 01/30/21 07:27 01/30/21 10:41 White Blood Count 12.6 x10^3/uL (4.0-11.0) Red Blood Count 5.60 x10^6/uL (4.30-5.70) Hemoglobin 16.4 g/dL (13.0-17.5) Hematocrit 49.3 % (39.0-53.0) Mean Corpuscular Volume 88 fL (79-100) Mean Corpuscular Hemoglobin 29 pg (25-35) Mean Corpuscular Hemoglobin Concent 33 g/dL (31-37) Red Cell Distribution Width 14.5 % (11.5-14.5) Platelet Count 214 x10^3/uL (140-400) Neutrophils (%) (Auto) 78 % (31-73) Lymphocytes (%) (Auto) 14 % (24-48) Monocytes (%) (Auto) 6 % (0-9) Eosinophils (%) (Auto) 1 % (0-3) Basophils (%) (Auto) 0 % (0-3) Neutrophils # (Auto) 9.9 x10^3/uL (1.8-7.7) Lymphocytes # (Auto) 1.8 x10^3/uL (1.0-4.8) Monocytes # (Auto) 0.7 x10^3/uL (0.0-1.1) Eosinophils # (Auto) 0.2 x10^3/uL (0.0-0.7) Basophils # (Auto) 0.0 x10^3/uL (0.0-0.2) Sodium Level 135 mmol/L (136-145) Potassium Level 3.9 mmol/L (3.5-5.1) Chloride Level 96 mmol/L (98-107) Carbon Dioxide Level 32 mmol/L (21-32) Anion Gap 7 (6-14) Blood Urea Nitrogen 29 mg/dL (8-26) Creatinine 1.5 mg/dL (0.7-1.3) Estimated GFR (Cockcroft-Gault) 48.6 Glucose Level 242 mg/dL (70-99) Calcium Level 8.5 mg/dL (8.5-10.1) Glucose (Fingerstick) 179 mg/dL (70-99) 307 mg/dL (70-99) Laboratory Tests Test 01/29/21 16:44 01/29/21 20:52 01/30/21 04:45 01/30/21 07:27 Glucose (Fingerstick) 197 mg/dL (70-99) 297 mg/dL (70-99) 179 mg/dL (70-99) White Blood Count 12.6 x10^3/uL (4.0-11.0) Red Blood Count 5.60 x10^6/uL (4.30-5.70) Hemoglobin 16.4 g/dL (13.0-17.5) Hematocrit 49.3 % (39.0-53.0) Mean Corpuscular Volume 88 fL (79-100) Mean Corpuscular Hemoglobin 29 pg (25-35) Mean Corpuscular Hemoglobin Concent 33 g/dL (31-37) Red Cell Distribution Width 14.5 % (11.5-14.5) Platelet Count 214 x10^3/uL (140-400) Neutrophils (%) (Auto) 78 % (31-73) Lymphocytes (%) (Auto) 14 % (24-48) Monocytes (%) (Auto) 6 % (0-9) Eosinophils (%) (Auto) 1 % (0-3) Basophils (%) (Auto) 0 % (0-3) Neutrophils # (Auto) 9.9 x10^3/uL (1.8-7.7) Lymphocytes # (Auto) 1.8 x10^3/uL (1.0-4.8) Monocytes # (Auto) 0.7 x10^3/uL (0.0-1.1) Eosinophils # (Auto) 0.2 x10^3/uL (0.0-0.7) Basophils # (Auto) 0.0 x10^3/uL (0.0-0.2) Sodium Level 135 mmol/L (136-145) Potassium Level 3.9 mmol/L (3.5-5.1) Chloride Level 96 mmol/L (98-107) Carbon Dioxide Level 32 mmol/L (21-32) Anion Gap 7 (6-14) Blood Urea Nitrogen 29 mg/dL (8-26) Creatinine 1.5 mg/dL (0.7-1.3) Estimated GFR (Cockcroft-Gault) 48.6 Glucose Level 242 mg/dL (70-99) Calcium Level 8.5 mg/dL (8.5-10.1) Test 01/30/21 10:41 Glucose (Fingerstick) 307 mg/dL (70-99) Brief Hospital Course 55-year-old male who underwent lumbar hemilaminectomy of the L3-L4 levels on January 09, 2021. He was actually discharged home the following day was doing well. Unfortunately patient had a surgical site complication with infection he was started on Keflex and failed p.o. antibiotics over the weekend. There was increasing pain and serous drainage from incision and he was brought in for further evaluation and IV antibiotics. He was given fentanyl for pain and patient was on lisinopril chronically. Unfortunately patient had angioedema most likely with his use of MICHAEL inhibitors. Infectious diseases consulted for antibiotic management. Patient interviewed bedside and he was doing well. He denies any throat swelling or wheezing or trouble breathing. He does not have any periorbital edema or facial swelling. Only upper portion of his lip is swollen and his tongue is fine. He is speaking in full sentences without any use of his accessory muscles. Denies fevers, confusion, syncope, chest pain, shortness of breath, abdominal pain, diarrhea or hematuria. 01/24/2021 Patient had an acute agitative and confusion episode last night. Patient ripped out the sharps container from the wall. He appears to be close to his baseline today and appears lethargic but talking on the phone. Sitting on the recliner and not agitated at this time. No fevers somewhat tachycardic and no hypotensive episodes. Swelling of his upper lip appears to be improved. No redness or swelling. Patient will likely benefit from a PICC line placement for long-term IV antibiotics. Will defer the timing and course to infectious disease. Patient's chart, labs, images were reviewed and discussed with RN 01/25/2021 No acute events overnight. Patient is ambulating through the hallways back pain. There is clear drainage on the dressings which will need to be switched out. Blood pressures have been uncontrolled with systolic blood pressures from 1 60-1 90. He does have IV antihypertensive medications as needed. I have increased his hydralazine to 50 mg 3 times daily. His sugars have also been greater than 300 and as high as 400. I have added a long-acting Lantus 10 units twice daily and keeping him on regular insulin sliding scale. Patient usually does have an insulin pump in which he had his friend bring. However due to his staff aureus infection I would recommend him not to place the insulin pump at this time and only administer insulin as needed and do subcu injections. I have also decreased his Solu-Medrol to a prednisone taper at 40 mg daily for now. 01/26/2021 No acute events overnight. Patient seen and examined bedside. Resting comfortably. Appears pain is well controlled. Blood pressures have improved. Will decrease his prednisone to 20 mg daily. Continue his 5 units 3 times daily with meals of lispro and long-acting glargine 10 units twice daily with sliding scale high intensity. Patient's chart, labs, images were reviewed and discussed with RN 01/27/2021 No acute events overnight. Patient yesterday had some swelling around the eyes and I gave a dose of pulse IV steroids. Swelling and irritation or hives around the periorbital region has improved. Patient has some drug-seeking behavior which she was requiring only IV pain medications. Patient seen and examined bedside. Patient was using his cell phone at the time and appeared to be content. Not in any active pain at the time. No acute agitative episodes overnight. Wound is appearing improved without much drainage. Continue to taper steroids and continued IV antibiotics per ID. I have increased her glargine to 15 units twice daily and increased his premale lispro to 10 units before meals. Patient's chart, labs, images were reviewed and discussed with RN 01/29: No acute events overnight. Patient seen and examined bedside. Resting comfortably in bed. Blood pressures continues to be elevated in the 170s to 160s systolics. I have increased his hydralazine to 75 mg 3 times daily. I have stopped his prednisone. Sugars have been better controlled. 01/30: No overnight events. Blood pressure improved discussed with nephrology to change to 0.2 mg twice daily of clonidine and to follow-up with nephrology outpatient. Patient without complaints. Wishes for d/c today, has home antibiotics set up, has previously had PICC and home antibiotics. 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 Hypertension. Leukocytosis. Renal insufficiency - follow up nephrology outpatient Okay with discharge to home with home health Recommend to continue prednisone for another 2 days at 20 mg daily. No need for further tapering as patient was only on high-dose steroids for less than a week Recommend to continue with HCTZ, amlodipine, metoprolol and clonidine for blood pressure control. Discussed with nephrology to stop clonidine patch and changed to 0.2 mg twice daily clonidine tablets on discharge Okay to continue with insulin pump as long as there is no other concerns for other sources of infection infection, especially in the skin or soft tissue area Would avoid MICHAEL inhibitor for now, and may consider possibly ARB in the future if blood pressure still poorly controlled as patient is a diabetic and would benefit significantly from a ARB for kidney protection Greater than 30 minutes spent on d/c Discharge Information Condition at Discharge: Improved Follow Up: Weeks Disposition/Orders: D/C to Home w/ HH Scheduled Amlodipine Besylate (Amlodipine Besylate) 10 Mg Tablet, 10 MG PO DAILY for HTN for 30 Days, #30 Ref 2 Prescribed by: AVTAR BARKER MD on 01/30/21 1213 Aspirin (Aspirin) 81 Mg Tab.chew, 1 TAB PO DAILY for thin blood, #30 Ref 3 (Reported) Entered as Reported by: SAVI DE LA CRUZ on 01/05/201514 Last Action: Continued on 01/22/211556 by ZORA LLANOS Atorvastatin Calcium (Lipitor) 80 Mg Tablet, 1 TAB PO DAILY for control cholesterol, #30 Ref 5 (Reported) Entered as Reported by: SAIV DE LA CRUZ on 01/05/201457 Last Action: Converted on 01/22/211556 by ZORA LLANOS Blood Sugar Diagnostic (Freestyle Lite Test Strip) 1 Each Strip, 1 STRIP MC DAILY for CHECK BLOOD SUGAR for 30 Days, #30 Ref 0 (Reported) Entered as Reported by: Irvin Reyes on 01/02/21 1326 Clonidine Hcl (Clonidine Hcl) 0.2 Mg Tablet, 1 TAB PO BID for HTN for 30 Days, #60 Ref 2 Prescribed by: AVTAR BARKER MD on 01/30/21 1213 Daptomycin (Daptomycin) 350 Mg Vial, 600 MG IV DAILY for Spine staph infection for 42 Days, #72 Prescribed by: AVTAR BARKER MD on 01/30/21 1213 Docusate Sodium (Colace) 100 Mg Capsule, 100 MG PO BID for constipation for 60 Days, #120 Prescribed by: DOUG ZAMAN on 01/09/21 1450 Last Action: Continued on 01/22/211556 by ZORA LLANOS Empagliflozin (Jardiance) 25 Mg Tablet, 25 MG PO DAILY for control blood sugar, (Reported) Entered as Reported by: SAVI DE LA CRUZ on 01/05/201457 Last Action: Converted on 01/22/211556 by ZORA LLANOS Ezetimibe (Zetia) 10 Mg Tablet, 10 MG PO DAILY for lower cholesterol, (Reported) Entered as Reported by: SAVI DE LA CRUZ on 01/05/20 150 Last Action: Continued on 01/22/211556 by ZORA LLANOS Febuxostat (Uloric) 80 Mg Tablet, 1 TAB PO DAILY for gout for 30 Days, #30 Ref 0 (Reported) Entered as Reported by: SAVI DE LA CRUZ on 01/05/201514 Last Action: Converted on 01/22/211556 by ZORA LLANOS Hydralazine Hcl (Hydralazine Hcl) 50 Mg Tablet, 1 TAB PO DAILY for lower blood pressure, #90 Ref 5 (Reported) Entered as Reported by: SAVI DE LA CRUZ on 01/05/201514 Last Action: Continued on 01/22/211556 by ZORA LLANOS Hydrochlorothiazide (Hydrochlorothiazide Capsule ) 12.5 Mg Capsule, 12.5 MG PO DAILY for DIURETIC, Ref 0 (Reported) Entered as Reported by: SAVI DE LA CRUZ on 01/05/201514 Last Action: Continued on 01/22/211556 by ZORA LLANOS Icosapent Ethyl (Vascepa) 1 Gm Capsule, 1 GM PO BID for , (Reported) Entered as Reported by: Irvin Reyes on 01/02/211322 Last Action: Converted on 01/22/211556 by ZORA LLANOS Lactobacillus Rhamnosus Gg (Culturelle) 1 Each Cap.sprink, 1 CAP PO BID for probiotic for 42 Days, #84 Prescribed by: AVTAR BARKER MD on 01/30/21 1213 Nebivolol Hcl (Bystolic) 20 Mg Tablet, 20 MG PO DAILY for lower blood pressure, (Reported) Entered as Reported by: SAVI DE LA CRUZ on 01/05/201514 Last Action: Converted on 01/22/211556 by ZORA LLANOS Probenecid (Probenecid) 500 Mg Tablet, 500 MG PO BID for , (Reported) Entered as Reported by: Irvin Reyes on 01/02/211321 Last Action: Converted on 01/22/211556 by ZORA LLANOS Semaglutide (Ozempic) 1 Mg/0.75 Ml Pen.injctr, 1 MG SQ WEEKLY for control blood sugar, (Reported) THURSDAY Entered as Reported by: SAVI DE LA CRUZ on 01/05/20 1458 Last Action: Converted on 01/22/211556 by ZORA LLANOS Scheduled PRN Hydrocodone Bit/Acetaminophen (Hydrocodone-Apap 7.5-325 ) 1 Tab Tablet, 1-2 TAB PO PRN Q4HRS PRN for PAIN, Ref 0 (Reported) Entered as Reported by: Irvin Reyes on 01/02/211324 Last Action: Continued on 01/22/211556 by ZORA LLANOS Methocarbamol (Methocarbamol) 750 Mg Tablet, 750 MG PO TID PRN PRN for MUSCLE SPASMS, #60 Prescribed by: DOUG ZAMAN on 01/09/21 1449 Last Action: Continued on 01/22/211556 by ZORA LLANOS Zolpidem Tartrate (Zolpidem Tartrate Er) 12.5 Mg Tab.mphase, 12.5 MG PO PRN QHS PRN for INSOMNIA, Ref 0 (Reported) Entered as Reported by: Irvin Reyes on 01/02/21 1323 Last Action: Converted on 01/22/211556 by ZORA LLANOS Discontinued Medications Clonidine (Clonidine Tts-2 ) 1 Each Patch.tdwk, 1 PATCH TD WEEKLY for HYPERTENSION, (Reported) Entered as Reported by: SAVI DE LA CRUZ on 01/05/20 1515 Last Taken: Unknown Dose on 01/15/21 Last Action: Continued on 01/22/211556 by ZORA LLANOS Lisinopril (Zestril) 20 Mg Tablet, 1 TAB PO DAILY for lower blood pressure for 30 Days, #30 Ref 0 (Reported) Entered as Reported by: SAVI DE LA CRUZ on 01/05/20 1458 Last Action: Continued on 01/22/211556 by ZORA LLANOS Durable Medical Equipment [V-Go 40 Day Kit ] , UNITS SQ Q1HR, #1.67 (Reported), (DME) 5 CLICKS @ MEALS 2 CLICKS @ SNACKS Entered as Reported by: Irvin Reyes on 01/02/21 1331 Last Action: Reviewed on 01/22/211556 by ZORA LLANOS Justicifation of Admission Dx: Justifications for Admission: Justification of Admission Dx: Yes AVTAR BARKER MD Jan 30, 2021 12:18
--- NOTE | 2021-01-30 14:30 | PDOC ---
PROGRESS NOTES Date of Service DATE: 01/30/21 TIME: 14:28 Subjective Subjective up in chair pain better controlled has been up ambulating Objective Objective Vital Signs Date Time Temp Pulse Resp B/P (MAP) Pulse Ox O2 Delivery O2 Flow Rate FiO2 01/30/21 13:13 97 Room Air 01/30/21 11:23 78 130/79 01/30/21 11:00 98.1 16 98.1 Intake and Output 01/30/21 07:00 Intake Total 480 ml Balance 480 ml Intake Oral 480 ml # Voids 3 Physical Exam General: Alert, Oriented X3, Cooperative, No acute distress Neuro: Normal speech Skin: Other (dressing changed per RN) Plan Plan of Care ok to dc home with Home health- dressing changes, BP checks IV antibiotics f/u with ID F/u with nephrology F/u with me in 2 weeks D/W RN Comment Review of Relevant I have reviewed the following items lashaun (where applicable) has been applied. Labs Laboratory Tests Test 01/28/21 17:24 01/28/21 21:30 01/29/21 05:30 01/29/21 06:30 Glucose (Fingerstick) 428 mg/dL (70-99) 276 mg/dL (70-99) Sodium Level 135 mmol/L (136-145) Potassium Level 4.0 mmol/L (3.5-5.1) Chloride Level 95 mmol/L (98-107) Carbon Dioxide Level 32 mmol/L (21-32) Anion Gap 8 (6-14) Blood Urea Nitrogen 25 mg/dL (8-26) Creatinine 1.3 mg/dL (0.7-1.3) Estimated GFR (Cockcroft-Gault) 57.3 Glucose Level 196 mg/dL (70-99) Calcium Level 8.7 mg/dL (8.5-10.1) White Blood Count 12.6 x10^3/uL (4.0-11.0) Red Blood Count 6.00 x10^6/uL (4.30-5.70) Hemoglobin 17.3 g/dL (13.0-17.5) Hematocrit 52.7 % (39.0-53.0) Mean Corpuscular Volume 88 fL (79-100) Mean Corpuscular Hemoglobin 29 pg (25-35) Mean Corpuscular Hemoglobin Concent 33 g/dL (31-37) Red Cell Distribution Width 14.7 % (11.5-14.5) Platelet Count 160 x10^3/uL (140-400) Neutrophils (%) (Auto) 74 % (31-73) Lymphocytes (%) (Auto) 18 % (24-48) Monocytes (%) (Auto) 6 % (0-9) Eosinophils (%) (Auto) 2 % (0-3) Basophils (%) (Auto) 0 % (0-3) Neutrophils # (Auto) 9.3 x10^3/uL (1.8-7.7) Lymphocytes # (Auto) 2.2 x10^3/uL (1.0-4.8) Monocytes # (Auto) 0.8 x10^3/uL (0.0-1.1) Eosinophils # (Auto) 0.2 x10^3/uL (0.0-0.7) Basophils # (Auto) 0.1 x10^3/uL (0.0-0.2) Test 01/29/21 07:10 01/29/21 11:25 01/29/21 16:44 01/29/21 20:52 Glucose (Fingerstick) 202 mg/dL (70-99) 206 mg/dL (70-99) 197 mg/dL (70-99) 297 mg/dL (70-99) Test 01/30/21 04:45 01/30/21 07:27 01/30/21 10:41 White Blood Count 12.6 x10^3/uL (4.0-11.0) Red Blood Count 5.60 x10^6/uL (4.30-5.70) Hemoglobin 16.4 g/dL (13.0-17.5) Hematocrit 49.3 % (39.0-53.0) Mean Corpuscular Volume 88 fL (79-100) Mean Corpuscular Hemoglobin 29 pg (25-35) Mean Corpuscular Hemoglobin Concent 33 g/dL (31-37) Red Cell Distribution Width 14.5 % (11.5-14.5) Platelet Count 214 x10^3/uL (140-400) Neutrophils (%) (Auto) 78 % (31-73) Lymphocytes (%) (Auto) 14 % (24-48) Monocytes (%) (Auto) 6 % (0-9) Eosinophils (%) (Auto) 1 % (0-3) Basophils (%) (Auto) 0 % (0-3) Neutrophils # (Auto) 9.9 x10^3/uL (1.8-7.7) Lymphocytes # (Auto) 1.8 x10^3/uL (1.0-4.8) Monocytes # (Auto) 0.7 x10^3/uL (0.0-1.1) Eosinophils # (Auto) 0.2 x10^3/uL (0.0-0.7) Basophils # (Auto) 0.0 x10^3/uL (0.0-0.2) Sodium Level 135 mmol/L (136-145) Potassium Level 3.9 mmol/L (3.5-5.1) Chloride Level 96 mmol/L (98-107) Carbon Dioxide Level 32 mmol/L (21-32) Anion Gap 7 (6-14) Blood Urea Nitrogen 29 mg/dL (8-26) Creatinine 1.5 mg/dL (0.7-1.3) Estimated GFR (Cockcroft-Gault) 48.6 Glucose Level 242 mg/dL (70-99) Calcium Level 8.5 mg/dL (8.5-10.1) Glucose (Fingerstick) 179 mg/dL (70-99) 307 mg/dL (70-99) Laboratory Tests Test 01/29/21 16:44 01/29/21 20:52 01/30/21 04:45 01/30/21 07:27 Glucose (Fingerstick) 197 mg/dL (70-99) 297 mg/dL (70-99) 179 mg/dL (70-99) White Blood Count 12.6 x10^3/uL (4.0-11.0) Red Blood Count 5.60 x10^6/uL (4.30-5.70) Hemoglobin 16.4 g/dL (13.0-17.5) Hematocrit 49.3 % (39.0-53.0) Mean Corpuscular Volume 88 fL (79-100) Mean Corpuscular Hemoglobin 29 pg (25-35) Mean Corpuscular Hemoglobin Concent 33 g/dL (31-37) Red Cell Distribution Width 14.5 % (11.5-14.5) Platelet Count 214 x10^3/uL (140-400) Neutrophils (%) (Auto) 78 % (31-73) Lymphocytes (%) (Auto) 14 % (24-48) Monocytes (%) (Auto) 6 % (0-9) Eosinophils (%) (Auto) 1 % (0-3) Basophils (%) (Auto) 0 % (0-3) Neutrophils # (Auto) 9.9 x10^3/uL (1.8-7.7) Lymphocytes # (Auto) 1.8 x10^3/uL (1.0-4.8) Monocytes # (Auto) 0.7 x10^3/uL (0.0-1.1) Eosinophils # (Auto) 0.2 x10^3/uL (0.0-0.7) Basophils # (Auto) 0.0 x10^3/uL (0.0-0.2) Sodium Level 135 mmol/L (136-145) Potassium Level 3.9 mmol/L (3.5-5.1) Chloride Level 96 mmol/L (98-107) Carbon Dioxide Level 32 mmol/L (21-32) Anion Gap 7 (6-14) Blood Urea Nitrogen 29 mg/dL (8-26) Creatinine 1.5 mg/dL (0.7-1.3) Estimated GFR (Cockcroft-Gault) 48.6 Glucose Level 242 mg/dL (70-99) Calcium Level 8.5 mg/dL (8.5-10.1) Test 01/30/21 10:41 Glucose (Fingerstick) 307 mg/dL (70-99) Microbiology 01/22/21 Gram Stain - Final, Complete 01/22/21 Aerobic and Anaerobic Culture - Final, Complete 01/22/21 Antimicrobic Susceptibility - Final, Complete Medications Current Medications Fentanyl Citrate (Fentanyl 2ml Vial) 50 mcg PRN Q2HR PRN IVP PAIN Last administered on 01/23/21at 02:11; Start 01/22/21 at 16:00; Stop 01/23/21 at 03:01; Status DC Aspirin (Aspirin Chewable) 81 mg DAILY PO Last administered on 01/30/21at 08:00; Start 01/23/21 at 09:00 Clonidine HCl (Catapres Tts-2) 1 patch WEEKLY TD Last administered on 01/29/21at 08:42; Start 01/22/21 at 17:00; Stop 01/30/21 at 11:07; Status DC Docusate Sodium (Colace) 100 mg BID PO Last administered on 01/30/21at 08:00; Start 01/22/21 at 21:00 EZETIMIBE (Zetia) 10 mg DAILY PO Last administered on 01/30/21at 08:00; Start 01/23/21 at 09:00 Hydralazine HCl (Apresoline) 50 mg DAILY PO Last administered on 01/24/21at 08:41; Start 01/23/21 at 09:00; Stop 01/24/21 at 14:47; Status DC Hydrochlorothiazide (Microzide) 12.5 mg DAILY PO Last administered on 01/30/21at 08:00; Start 01/23/21 at 09:00 Acetaminophen/ Hydrocodone Bitart (Lortab 7.5/325) 2 tab PRN Q4HRS PRN PO PAIN Last administered on 01/23/21at 10:25; Start 01/22/21 at 16:00; Stop 01/23/21 at 13:34; Status DC Lisinopril (Prinivil) 20 mg DAILY PO ; Start 01/23/21 at 09:00; Stop 01/23/21 at 06:31; Status DC Methocarbamol (Robaxin) 750 mg TID PRN PRN PO MUSCLE SPASMS Last administered on 01/30/21at 11:22; Start 01/22/21 at 16:00 Atorvastatin Calcium (Lipitor) 80 mg DAILY PO Last administered on 01/30/21at 08:00; Start 01/23/21 at 09:00 Non-Formulary Medication (Empagliflozin (Jardiance)) 25 mg DAILY PO ; Start 01/23/21 at 09:00; Stop 01/23/21 at 18:17; Status DC Febuxostat (Uloric) 80 mg DAILY PO Last administered on 01/30/21at 07:57; Start 01/23/21 at 09:00 Non-Formulary Medication (Icosapent Ethyl (Vascepa)) 1 gm BID PO ; Start 01/22/21 at 21:00; Stop 01/23/21 at 18:18; Status DC Metoprolol Tartrate (Lopressor) 50 mg BID PO Last administered on 01/30/21at 07:58; Start 01/22/21 at 21:00 Probenecid (Benemid) 500 mg BID PO Last administered on 01/30/21at 07:57; Start 01/22/21 at 21:00 Non-Formulary Medication (Semaglutide (Ozempic)) 1 mg WEEKLY SQ ; Start 01/29/21 at 09:00; Status UNV Zolpidem Tartrate (Ambien) 5 mg PRN QHS PRN PO INSOMNIA, MAY REPEAT X1 Last administered on 01/23/21at 21:00; Start 01/22/21 at 16:15 Insulin Human Lispro (HumaLOG) 0-9 UNITS TIDWMEALS SQ Last administered on 01/30/21at 11:31; Start 01/22/21 at 00:00 Dextrose (Dextrose 50%-Water Syringe) 12.5 gm PRN Q15MIN PRN IV SEE COMMENTS; Start 01/22/21 at 20:45 Diphenhydramine HCl (Benadryl) 50 mg PRN Q6HRS PRN IVP ITCHING, 1ST CHOICE Last administered on 01/29/21at 20:05; Start 01/23/21 at 03:00 Diphenhydramine HCl (Benadryl) 100 mg PRN Q6HRS PRN IVP ITCHING, 2ND CHOICE Last administered on 01/29/21at 12:48; Start 01/23/21 at 03:00 Morphine Sulfate (Morphine Sulfate) 2 mg PRN Q2HR PRN IVP PAIN Last administered on 01/29/21at 12:45; Start 01/23/21 at 03:00 Famotidine (Pepcid Vial) 20 mg BID IVP Last administered on 01/28/21at 09:00; Start 01/23/21 at 07:00; Stop 01/28/21 at 12:26; Status DC Methylprednisolone Sodium Succinate (SOLU-Medrol 40MG VIAL) 40 mg Q12HR IV Last administered on 01/25/21at 08:02; Start 01/23/21 at 07:00; Stop 01/25/21 at 09:43; Status DC Daptomycin 640 mg/ Sodium Chloride 50 ml @ 100 mls/hr Q24H IV Last admin istered on 01/23/21at 11:01; Start 01/23/21 at 10:00; Stop 01/23/21 at 14:59; Status DC Piperacillin Sod/ Tazobactam Sod 3.375 gm/Sodium Chloride 50 ml @ 100 mls/hr Q6HRS IV Last administered on 01/25/21at 06:16; Start 01/23/21 at 10:00; Stop 01/25/21 at 08:23; Status DC Lactobacillus Rhamnosus (Culturelle) 1 cap BID PO Last administered on 01/30/21at 07:59; Start 01/23/21 at 21:00 Oxycodone/ Acetaminophen (Percocet 5/325) 1 tab PRN Q4HRS PRN PO MODERATE PAIN; Start 01/23/21 at 13:45; Stop 01/28/21 at 10:13; Status DC Oxycodone/ Acetaminophen (Percocet 5/325) 2 tab PRN Q4HRS PRN PO SEVERE PAIN Last administered on 01/28/21at 08:14; Start 01/23/21 at 13:45; Stop 01/28/21 at 10:13; Status DC Daptomycin 500 mg/ Sodium Chloride 50 ml @ 100 mls/hr Q24H IV Last administered on 01/26/21at 09:03; Start 01/24/21 at 09:00; Stop 01/26/21 at 12:51; Status DC Labetalol HCl (Normodyne Iv Push) 10 mg PRN Q15MIN PRN IVP HYPERTENSION Last administered on 01/28/21at 23:39; Start 01/24/21 at 00:00 Ziprasidone (Geodon) 20 mg PRN Q2HRS PRN PO ANXIETY / AGITATION Last administered on 01/25/21at 10:10; Start 01/24/21 at 00:00 Hydralazine HCl (Apresoline) 25 mg TID PO Last administered on 01/25/21at 08:01; Start 01/24/21 at 00:30; Stop 01/25/21 at 09:37; Status DC Insulin Human Lispro (HumaLOG) 5 units 1X ONCE SQ Last administered on 01/24/21at 00:19; Start 01/24/21 at 00:30; Stop 01/24/21 at 00:31; Status DC Ziprasidone (Geodon Im) 10 mg PRN Q2HRS PRN IM AGITATION Last administered on 01/24/21at 06:05; Start 01/24/21 at 00:15 Lidocaine HCl (Buffered Lidocaine 1%) 3 ml STK-MED ONCE .ROUTE ; Start 01/24/21 at 12:11; Stop 01/24/21 at 12:11; Status DC Lidocaine HCl (Buffered Lidocaine 1%) 3 ml STK-MED ONCE .ROUTE ; Start 01/24/21 at 12:21; Stop 01/24/21 at 12:22; Status DC Lidocaine HCl (Buffered Lidocaine 1%) 6 ml 1X ONCE INJ Last administered on 01/24/21at 13:10; Start 01/24/21 at 12:30; Stop 01/24/21 at 12:34; Status DC Gadoterate Meglumine (Clariscan) 20 ml 1X ONCE IVP Last administered on 01/24/21at 15:55; Start 01/24/21 at 15:30; Stop 01/24/21 at 15:31; Status DC Insulin Human Lispro (HumaLOG) 12 units 1X ONCE SQ Last administered on 01/24/21at 22:05; Start 01/24/21 at 22:00; Stop 01/24/21 at 22:01; Status DC Hydralazine HCl (Apresoline) 50 mg TID PO Last administered on 01/29/21at 08:42; Start 01/25/21 at 14:00; Stop 01/29/21 at 11:34; Status DC Insulin Glargine (Lantus Syringe) 10 unit BID SQ Last administered on 01/26/21at 23:06; Start 01/25/21 at 11:00; Stop 01/27/21 at 08:13; Status DC Prednisone (Prednisone) 40 mg DAILY PO Last administered on 01/26/21at 08:31; Start 01/26/21 at 09:00; Stop 01/26/21 at 09:15; Status DC Insulin Human Lispro (HumaLOG) 5 units TIDWMEALS SQ Last administered on 01/26/21at 17:00; Start 01/25/21 at 17:00; Stop 01/27/21 at 08:13; Status DC Polyethylene Glycol (miraLAX PACKET) 17 gm PRN Q4HRS PRN PO CONSTIPATION Last administered on 01/30/21at 09:21; Start 01/25/21 at 16:15 Insulin Human Lispro (HumaLOG) 20 units 1X ONCE SQ Last administered on 01/25/21at 18:18; Start 01/25/21 at 18:00; Stop 01/25/21 at 18:03; Status DC Prednisone (Prednisone) 20 mg DAILY PO Last administered on 01/29/21at 08:40; Start 01/27/21 at 09:00; Stop 01/29/21 at 11:34; Status DC Amlodipine Besylate (Norvasc) 5 mg DAILY PO Last administered on 01/27/21at 07:39; Start 01/26/21 at 09:15; Stop 01/27/21 at 08:12; Status DC Cefazolin Sodium/ Dextrose 50 ml @ 100 mls/hr Q8HRS IV Last administered on 01/29/21at 05:04; Start 01/26/21 at 14:00; Stop 01/29/21 at 10:36; Status DC Methylprednisolone Sodium Succinate (SOLU-Medrol 125MG VIAL) 125 mg 1X ONCE IV Last administered on 01/26/21at 14:59; Start 01/26/21 at 14:30; Stop 01/26/21 at 14:31; Status DC Amlodipine Besylate (Norvasc) 10 mg DAILY PO Last administered on 01/28/21at 08:15; Start 01/27/21 at 09:00; Stop 01/28/21 at 12:23; Status DC Insulin Glargine (Lantus Syringe) 15 unit BID SQ Last administered on 01/28/21at 10:20; Start 01/27/21 at 09:00; Stop 01/28/21 at 12:33; Status DC Insulin Human Lispro (HumaLOG) 10 units TIDWMEALS SQ Last administered on 01/28/21at 12:41; Start 01/27/21 at 12:00; Stop 01/28/21 at 17:53; Status DC Oxycodone HCl (Roxicodone) 5 mg PRN Q4HRS PRN PO MODERATE PAIN; Start 01/28/21 at 10:15 Oxycodone HCl (Roxicodone) 10 mg PRN Q4HRS PRN PO SEVERE PAIN Last administered on 01/30/21at 12:43; Start 01/28/21 at 10:30 Amlodipine Besylate (Norvasc) 10 mg DAILY PO Last administered on 01/30/21at 08:00; Start 01/29/21 at 09:00 Famotidine (Pepcid) 20 mg BID PO Last administered on 01/30/21at 08:00; Start 01/28/21 at 21:00 Insulin Glargine (Lantus Syringe) 20 unit BID SQ Last administered on 01/30/21at 09:00; Start 01/28/21 at 21:00 Insulin Human Regular (HumuLIN R VIAL) 15 unit 1X ONCE IV ; Start 01/28/21 at 13:00; Stop 01/28/21 at 13:01; Status DC Insulin Human Lispro (HumaLOG) 15 units 1X ONCE SQ ; Start 01/28/21 at 13:00; Stop 01/28/21 at 13:01; Status DC Insulin Human Lispro (HumaLOG) 20 units TIDWMEALS SQ Last administered on 01/30/21at 11:31; Start 01/28/21 at 18:00 Daptomycin 640 mg/ Sodium Chloride 50 ml @ 100 mls/hr Q24H IV Last administered on 01/30/21at 11:23; Start 01/29/21 at 12:00 Hydralazine HCl (Apresoline) 75 mg TID PO Last administered on 01/30/21at 07:59; Start 01/29/21 at 11:45 Cetirizine HCl (ZyrTEC) 10 mg DAILY PO Last administered on 01/30/21at 07:58; Start 01/29/21 at 16:00 Clonidine HCl (Catapres) 0.1 mg 1X ONCE PO Last administered on 01/30/21at 11:23; Start 01/30/21 at 11:15; Stop 01/30/21 at 11:18; Status DC Active Scripts Active Clonidine Hcl 0.2 Mg Tablet 1 Tab PO BID 30 Days Amlodipine Besylate 10 Mg Tablet 10 Mg PO DAILY 30 Days Culturelle (Lactobacillus Rhamnosus Gg) 1 Each Cap.sprink 1 Cap PO BID 42 Days Daptomycin 350 Mg Vial 600 Mg IV DAILY 42 Days Colace (Docusate Sodium) 100 Mg Capsule 100 Mg PO BID 60 Days Methocarbamol 750 Mg Tablet 750 Mg PO TID PRN PRN Reported [V-Go 40 Day Kit ] Units SQ Q1HR 5 CLICKS @ MEALS 2 CLICKS @ SNACKS Freestyle Lite Test Strip (Blood Sugar Diagnostic) 1 Each Strip 1 Strip MC DAILY 30 Days Hydrocodone-Apap 7.5-325 (Hydrocodone Bit/Acetaminophen) 1 Tab Tablet 1-2 Tab PO PRN Q4HRS PRN Vascepa (Icosapent Ethyl) 1 Gm Capsule 1 Gm PO BID Zolpidem Tartrate Er (Zolpidem Tartrate) 12.5 Mg Tab.mphase 12.5 Mg PO PRN QHS PRN Probenecid 500 Mg Tablet 500 Mg PO BID Hydrochlorothiazide Capsule (Hydrochlorothiazide) 12.5 Mg Capsule 12.5 Mg PO DAILY Hydralazine Hcl 50 Mg Tablet 1 Tab PO DAILY Uloric (Febuxostat) 80 Mg Tablet 1 Tab PO DAILY 30 Days Bystolic (Nebivolol Hcl) 20 Mg Tablet 20 Mg PO DAILY Aspirin 81 Mg Tab.chew 1 Tab PO DAILY Zetia (Ezetimibe) 10 Mg Tablet 10 Mg PO DAILY Ozempic (Semaglutide) 1 Mg/0.75 Ml Pen.injctr 1 Mg SQ WEEKLY THURSDAY Lipitor (Atorvastatin Calcium) 80 Mg Tablet 1 Tab PO DAILY Jardiance (Empagliflozin) 25 Mg Tablet 25 Mg PO DAILY Vitals/I & O Vital Sign - Last 24 Hours 01/29/21 01/29/21 01/29/21 01/29/21 15:00 19:35 20:00 20:02 Temp 98.2 97.7 98.2 97.7 Pulse 79 81 91 Resp 16 18 B/P (MAP) 125/80 (95) 157/100 (119) 157/100 Pulse Ox 96 98 O2 Delivery Room Air Room Air Room Air 01/29/21 01/29/21 01/30/21 01/30/21 20:02 23:04 02:34 02:55 Temp 97.9 97.8 97.9 97.8 Pulse 91 86 80 Resp 18 18 B/P (MAP) 157/100 133/82 (99) 149/82 (104) Pulse Ox 95 95 97 O2 Delivery Room Air Room Air Room Air 01/30/21 01/30/21 01/30/21 01/30/21 07:00 07:45 07:58 07:58 Temp 97.8 97.8 Pulse 79 Resp 18 B/P (MAP) 200/111 (140) 200/111 Pulse Ox 94 97 O2 Delivery Room Air Room Air Room Air 01/30/21 01/30/21 01/30/21 01/30/21 07:59 08:00 08:28 11:00 Temp 98.1 98.1 Pulse 78 Resp 16 B/P (MAP) 200/111 200/111 130/79 (96) Pulse Ox 97 97 O2 Delivery Room Air Room Air 01/30/21 01/30/21 01/30/21 11:23 12:43 13:13 Pulse 78 B/P (MAP) 130/79 Pulse Ox 97 97 O2 Delivery Room Air Room Air Intake and Output 01/29/21 01/29/21 01/30/21 15:00 23:00 07:00 Intake Total 480 ml Balance 480 ml Justifications for Admission Other Justification DOUG ZAMAN MD Jan 30, 2021 14:30
[2021-01-30 15:00] VITALS: BP 121/68
[2021-01-30 15:25] VITALS: BP 129/78
--- NOTE | 2021-01-30 17:00 | NUR ---
Patient left around 1640 with his PICC line in place and his home medical care set up by the corporate planner. Medications sent to his pharmacy per Dr Solis. Follow ups to be made and followed up with Dr Burgos, Dr Echols, and Dr Almonte. Dressing to low back changed prior to dismissal and extra dressing given to the patient. No concerns noted at discharge.
== END 2021-01-30 17:00 | disposition home health service (06) | DRG 862 ==
LOC: 4 NORTH 15:34
PROVIDERS: ADMIT Neurological Surgery; ATTEND Neurological Surgery
PROC: 02HV33Z Insertion of Infusion Device into Superior Vena Cava, Percutaneous Approach (ICD-10-PCS; principal; 2021-01-24)
PROC: B5181ZA Fluoroscopy of Superior Vena Cava using Low Osmolar Contrast, Guidance (ICD-10-PCS; 2021-01-24)
PROC: B548ZZA Ultrasonography of Superior Vena Cava, Guidance (ICD-10-PCS; 2021-01-24)
DX: T81.41XA Infection following a procedure, superficial incisional surgical site, initial encounter (principal); A41.9 Sepsis, unspecified organism; T78.3XXA Angioneurotic edema, initial encounter; T46.4X5A Adverse effect of angiotensin-converting-enzyme inhibitors, initial encounter; E11.22 Type 2 diabetes mellitus with diabetic chronic kidney disease; E78.5 Hyperlipidemia, unspecified; I12.9 Hypertensive chronic kidney disease with stage 1 through stage 4 chronic kidney disease, or unspecified chronic kidney disease; L30.9 Dermatitis, unspecified; M48.061 Spinal stenosis, lumbar region without neurogenic claudication; N18.30 Chronic kidney disease, stage 3 unspecified; Z76.5 Malingerer [conscious simulation]; Z79.4 Long term (current) use of insulin; Z82.49 Family history of ischemic heart disease and other diseases of the circulatory system; Z83.3 Family history of diabetes mellitus; G89.29 Other chronic pain; K21.9 Gastro-esophageal reflux disease without esophagitis
CPT/HCPCS: 36415; 36573; 72131; 72158; 77001; 80048; 80053; 80307; 82550; 82962; 85007; 85025; 85651; 86140; 86160; 87071; 87075; 87077; 87186; A9575; C1751; C1892; J0690; J0878; J1200; J1815; J2270; J2543; J2920; J2930; J3010; J3486; J3490; J7512; G0378